=== PATIENT | female | born 1955 | race Two or more races ===

== ENCOUNTER 2017-05-20 16:53 | Inpatient (IN) | payer MEDICARE, OTHER ==
[~2017-05-20] VITALS: Ht 162.6 cm; Wt 85.9 kg
--- NOTE | 2017-05-20 17:47 | PHYS DOC ---
Adult General Chief Complaint Chief Complaint: PSYCH EVALUATION HPI HPI Patient is a 61 year old F who presents for medical evaluation prior to psychiatric admission. Britta's history is limited due to her Alzheimer's diagnosis. She does not describe any pain, shortness of breath, urinary symptoms or bowel abnormalities. Review of Systems Review of Systems Constitutional: Denies fever or chills [] Eyes: Denies change in visual acuity, redness, or eye pain [] HENT: Denies nasal congestion or sore throat [] Respiratory: Denies cough or shortness of breath [] Cardiovascular: No additional information not addressed in HPI [] GI: Denies abdominal pain, nausea, vomiting, bloody stools or diarrhea [] : Denies dysuria or hematuria [] Musculoskeletal: Denies back pain or joint pain [] Integument: Denies rash or skin lesions [] Neurologic: Denies headache, focal weakness or sensory changes [] Endocrine: Denies polyuria or polydipsia [] All other systems were reviewed and found to be within normal limits, except as documented in this note. Family History Family History Noncontributory Current Medications Current Medications Medications reviewed Allergies Allergies No known allergies Physical Exam Physical Exam Constitutional: Well developed, well nourished, no acute distress, non-toxic appearance. [] HENT: atraumatic, bilateral external ears normal, oropharynx moist, no oral exudates, nose normal. [] Eyes: PERRLA, EOMI, conjunctiva normal, no discharge. [] Neck: Normal range of motion, no tenderness, supple, no stridor. [] Cardiovascular:Heart rate regular rhythm, no murmur [] Lungs & Thorax: Bilateral breath sounds clear to auscultation [] Abdomen: Bowel sounds normal, soft, no tenderness, no masses, no pulsatile masses. [] Skin: Warm, dry, no erythema, no rash. [] Back: No tenderness, no CVA tenderness. [] Extremities: No tenderness, no cyanosis, no clubbing, ROM intact, no edema. [] Neurologic: Alert normal motor function, normal sensory function, no focal deficits noted. [] Psychologic: Limited due to psychiatric diagnoses, Alzheimer's Current Patient Data Vital Signs Normal vital signs. Please review nursing recommendation for specifics EKG EKG Normal sinus rhythm, no ST changes Radiology/Procedures Radiology/Procedures [] Course & Med Decision Making Course & Med Decision Making Pertinent Labs and Imaging studies reviewed. (See chart for details) [] Dragon Disclaimer Dragon Disclaimer This electronic medical record was generated, in whole or in part, using a voice recognition dictation system. Departure Departure: Impression: Primary Impression: Encounter for medical screening examination Disposition: 65 XFER TO PSYCH HOSP/UNIT Condition: STABLE Referrals: JEFFREY FRANCO (PCP) MANOHAR CHAKRABORTY MD May 20, 2017 17:47
[2017-05-20 18:22] LABS: BASO # 0.1 x10^3/uL (0.0-0.2); BASO % 1 % (0-3); EOS # 0.2 x10^3/uL (0.0-0.7); EOS % 3 % (0-3); HEMATOCRIT 40.9 % (36.0-47.0); LYMPH # 1.2 x10^3/uL (1.0-4.8); LYMPH % 13 % (24-48); MEAN CORPUSCULAR HEMOGLOBIN 30 pg (25-35); MEAN CORPUSCULAR HGB CONC 34 g/dL (31-37); MEAN CORPUSCULAR VOLUME 87 fL (79-100); MONO # 0.6 x10^3/uL (0.0-1.1); MONO % 7 % (0-9); NEUT # 7.1 x10^3uL (1.8-7.7); NEUT % 77 % (31-73); PLATELET COUNT 224 x10^3/uL (140-400); RED BLOOD COUNT 4.68 x10^6/uL (3.50-5.40); WHITE BLOOD COUNT 9.2 x10^3/uL (4.0-11.0)
--- NOTE | 2017-05-20 18:26 | EKG ---
[address] [address] Test Date: 2017-05-20 Test Time: 18:02:58 Pat Name: JUAN LUIS WILSON Department: Room: Gender: F Inspector Aide: BEBETO : 1955 Requested By: MANOHAR CHAKRABORTY Order Number: [id number] Reading MD: Troy Phillips MD Measurements Intervals [place] Rate: 64 P: 49 RI: 162 QRS: -39 QRSD: 114 T: 64 QT: 460 QTc: 479 Interpretive Statements SINUS RHYTHM ATRIAL PREMATURE COMPLEX(ES) Electronically Signed On 05-21-2017 8:31:55 PORTFOLIO ARCHITECT by Troy Phillips MD
[2017-05-20 18:32] LABS: AMPHETAMINE/METHAMPHETAMINE NEG (NEG); BARBITURATES NEG (NEG); BENZODIAZEPINES NEG (NEG); CANNABINOIDS NEG (NEG); COCAINE NEG (NEG); METHADONE NEG (NEG); OPIATES NEG (NEG); PHENCYCLIDINE NEG (NEG)
[2017-05-20 18:35] LABS: ALBUMIN 4.2 g/dL (3.4-5.0); ALBUMIN/GLOBULIN RATIO 1.1 (1.0-1.7); CREATININE 0.9 mg/dL (0.6-1.0); GFR 63.4; MAGNESIUM 2.3 mg/dL (1.8-2.4); POTASSIUM 3.9 mmol/L (3.5-5.1); TOTAL BILIRUBIN 0.3 mg/dL (0.2-1.0)
[2017-05-20 18:54] LABS: BACTERIA,URINE 0 /HPF (0-FEW); BILIRUBIN,URINE NEG (NEG); CLARITY,URINE CLEAR; COLOR,URINE STRAW; GLUCOSE,URINE NEG (NEG); NITRITE,URINE NEG (NEG); RBC,URINE OCC /HPF (0-2); SQUAMOUS EPITHELIAL CELL,UR FEW /LPF; UROBILINOGEN,URINE 0.2 mg/dL (0.2 mg/dL)
[2017-05-20] MEDS ORDERED: MAG HYDROX/AL HYDROX/SIMETH 30 ML ORAL.SUSP PO PRN (20:15)
[2017-05-20] MEDS ORDERED: ACETAMINOPHEN 325 MG TABLET PO PRN (20:15)
[2017-05-20] MEDS ORDERED: METHYL SALICYLATE/MENTHOL TOPICAL OINTMENT 29GM TUBE. TP PRN (20:15)
[2017-05-20 20:39] VITALS: BP 136/71
[2017-05-20] MEDS ORDERED: MEMA10TA PO (21:24)
[2017-05-20] MEDS ORDERED: ACET325T9 PO (21:24)
[2017-05-20] MEDS ORDERED: QUET25TA5 PO (21:24)
[2017-05-20] MEDS ORDERED: OMEP20CA9 PO (21:24)
[2017-05-20] MEDS ORDERED: SIMV20TA3 PO (21:24)
[2017-05-20] MEDS ORDERED: LISI10TA2 PO (21:24)
[2017-05-20] MEDS ORDERED: DONE10TA7 PO (21:24)
[2017-05-20] MEDS ORDERED: DICL75TA PO (21:24)
[2017-05-20] MEDS ORDERED: [UNRECOGNIZED DRUG - CODE] MM (21:24)
[2017-05-20] MEDS ORDERED: CLOB15CR TP (21:24)
[2017-05-20] MEDS ORDERED: SERT100T PO (21:24)
[2017-05-20] MEDS ORDERED: CLON0.5T3 PO (21:24)
[2017-05-20] MEDS ORDERED: QUET50TA5 PO (21:24)
[2017-05-20] MEDS: DONEPEZIL HCL 10 MG TABLET PO SCH (22:47)
[2017-05-20] MEDS: MEMANTINE 10 MG TABLET. PO SCH (22:47)
[2017-05-20] MEDS: QUEtiapine 50 MG TABLET. PO SCH (22:47)
[2017-05-21] MEDS ORDERED: ACETAMINOPHEN 325 MG TABLET PO PRN (05:30)
[2017-05-21] MEDS ORDERED: BENZOCAINE/MENTHOL LOZENGE 16'S BOX. PO PRN (05:45)
[2017-05-21 05:52] VITALS: BP 128/84
[2017-05-21] MEDS: MEMANTINE 10 MG TABLET. PO SCH ×2 (08:39→19:59)
[2017-05-21] MEDS: PANTOPRAZOLE 40 MG TABLET. PO SCH (08:40)
[2017-05-21] MEDS: SERTRALINE 100 MG TABLET. PO SCH (08:40)
[2017-05-21] MEDS: DICLOFENAC SODIUM 75 MG TABLET.DR PO SCH ×2 (08:40→19:59)
[2017-05-21] MEDS: LISINOPRIL 10 MG TABLET PO SCH (08:40)
[2017-05-21] MEDS ORDERED: CLOBETASOL EMOLLIENT 0.05% TOPICAL CREAM 15GM TUBE. TP PRN (09:00)
[2017-05-21] MEDS ORDERED: QUEtiapine 25 MG TABLET. PO SCH (09:00)
[2017-05-21] MEDS: clonazePAM 0.5 MG TABLET PO PRN (11:51)
[2017-05-21 14:06] LABS: THYROID STIM HORMONE (TSH) 0.993 uIU/mL (0.358-3.740)
[2017-05-21 16:10] VITALS: BP 100/65
[2017-05-21] MEDS: CHOLECALCIFEROL (VITAMIN D3) 50,000 UNIT CAPSULE PO SCH (17:29)
[2017-05-21] MEDS: QUEtiapine 50 MG TABLET. PO SCH (19:59)
[2017-05-21] MEDS: DONEPEZIL HCL 10 MG TABLET PO SCH (19:59)
[2017-05-21] MEDS: SIMVASTATIN 20 MG TABLET PO SCH (20:00)
[2017-05-21 20:09] LABS: T3 TOTAL 96 ng/dL (71-180); THYROXINE 7.2 ug/dL (4.5-12.0)
--- NOTE | 2017-05-21 20:16 | PDOC ---
Exam Note: Emir Note: Please also refer to the separate dictated note~for this date of service dictated separately.~Patient seen individually. Discussed the patient with Nursing staff reviewed the chart.~Reviewed interim history and current functioning. Reviewed vital signs,~Labs/ Radiology~and current medications noted below. Continue current treatment with the changes noted in the dictated addendum note Assessment: Vital Signs: Vital Signs Date Time Temp Pulse Resp B/P (MAP) Pulse Ox O2 Delivery O2 Flow Rate FiO2 05/21/17 16:10 97.4 81 20 100/65 (77) 96 05/20/17 16:53 Room Air I&O Intake and Output 05/21/17 07:00 Intake Total 120 ml Balance 120 ml Intake Oral 120 ml # Voids 1 Current Medications: Meds: Current Medications Acetaminophen (Tylenol) 650 mg PRN Q6HRS PRN PO PAIN / TEMP; Start 05/20/17 at 20:15 Multi-Ingredient Ointment (Analgesic [place]) 1 chelle PRN QID PRN TP MUSCLE PAIN; Start 05/20/17 at 20:15 Al Hydroxide/Mg Hydroxide (Mylanta Plus Xs) 15 ml PRN AFTMEALHC PRN PO DYSPEPSIA; Start 05/20/17 at 20:15 Magnesium Hydroxide (Milk Of Magnesia) 2,400 mg PRN QHS PRN PO CONSTIPATION; Start 05/20/17 at 20:15 Clonazepam (KlonoPIN) 0.5 mg PRN BID PRN PO ANXIETY / AGITATION Last administered on 05/21/17 11:51; Start 05/20/17 at 21:45 Donepezil HCl (Aricept) 10 mg QHS PO Last administered on 05/21/17 19:59; Start 05/20/17 at 22:00 Memantine (Namenda) 10 mg BID PO Last administered on 05/21/17 19:59; Start 05/20/17 at 22:00 Quetiapine Fumarate (SEROquel) 25 mg DAILY PO Last administered on 05/21/17 08:40; Start 05/21/17 at 09:00; Stop 05/21/17 at 18:33; Status DC Quetiapine Fumarate (SEROquel) 50 mg QHS PO Last administered on 05/21/17 19: 59; Start 05/20/17 at 22:00 Sertraline HCl (Zoloft) 100 mg DAILY PO Last administered on 05/21/17 08:40; Start 05/21/17 at 09:00 Pneumococcal Polyvalent Vaccine (Do NOT chart on this entry -- for MONITORING) 1 each 1X ONCE MC ; Start 05/22/17 at 09:00; Stop 05/22/17 at 09:01 Influenza Virus Vaccine Quadrival (Fluarix Quad 3170-9502 Syringe) 0.5 ml ONCE ONCE VAX IM ; Start 05/22/17 at 09:00; Stop 05/22/17 at 09:01 Acetaminophen (Tylenol) 650 mg PRN Q6HRS PRN PO PAIN / TEMP; Start 05/21/17 at 05:30; Stop 05/21/17 at 05:34; Status DC Diclofenac Sodium (Voltaren) 75 mg BID PO Last administered on 05/21/17 19:59 ; Start 05/21/17 at 09:00 Lisinopril (Prinivil) 10 mg DAILY PO Last administered on 05/21/17 08:40; Start 05/21/17 at 09:00 Simvastatin (Zocor) 20 mg HS PO Last administered on 05/21/17 20:00; Start 05/21/17 at 21:00 Clobetasol Propionate 1 chelle PRN BID PRN TP ITCHING; Start 05/21/17 at 09:00 Pantoprazole Sodium (Protonix) 40 mg DAILYAC PO Last administered on 08:40; Start 05/21/17 at 07:30 Throat Lozenges (Cepacol Sore Throat Lozenge) 1 sara PRN Q2HR PRN PO COUGH; Start 05/21/17 at 05:45 Cyanocobalamin (Vitamin B-12) 1,000 mcg DAILY IM ; Start 05/22/17 at 09:00; Stop 05/25/17 at 08:59 Cyanocobalamin (Vitamin B-12) 1,000 mcg [id number] IM ; Start 06/18/17 at 09:00 Vitamin D (Vitamin D3) 50,000 unit WEEKLY PO Last administered on 05/21/17 17 :29; Start 05/21/17 at 16:00 Quetiapine Fumarate (SEROquel) 25 mg BID92 PO ; Start 05/22/17 at 09:00 Active Scripts Active Reported Throat Drops (Pectin) 6 Mg Lozenge 6 Mg MM PRN Q4HRS PRN Simvastatin 20 Mg Tablet 20 Mg PO HS Zoloft (Sertraline Hcl) 100 Mg Tablet 100 Mg PO DAILY Seroquel (Quetiapine Fumarate) 50 Mg Tablet 50 Mg PO QHS Seroquel (Quetiapine Fumarate) 25 Mg Tablet 25 Mg PO DAILY Omeprazole 20 Mg Capsule.dr 20 Mg PO DAILY Namenda (Memantine Hcl) 10 Mg Tablet 10 Mg PO BID Lisinopril 10 Mg Tablet 10 Mg PO DAILY Donepezil Hcl 10 Mg Tablet 10 Mg PO QHS Diclofenac Sodium 75 Mg Tablet.dr 75 Mg PO BID Clonazepam 0.5 Mg Tablet 0.5 Mg PO PRN BID PRN Clobetasol Propionate 15 Gm Cream..g. 1 [place] TP PRN BID PRN Tylenol (Acetaminophen) 325 Mg Tablet 650 Mg PO PRN Q6HRS PRN I have reviewed the current psychotropics carefully including drug interactions. Risk benefit ratio favors no change other than as noted in my dictated progress note. Diagnosis: Problems: (1) Encounter for medical screening examination PAM GLEZ MD May 21, 2017 20:16
[2017-05-22 03:06] LABS: HEMOGLOBIN A1C 5.7 % (4.8-5.6)
[2017-05-22 05:59] VITALS: BP 124/77
[2017-05-22] MEDS: PANTOPRAZOLE 40 MG TABLET. PO SCH (07:50)
[2017-05-22] MEDS: SERTRALINE 100 MG TABLET. PO SCH (07:50)
[2017-05-22] MEDS: LISINOPRIL 10 MG TABLET PO SCH (07:51)
[2017-05-22] MEDS: MEMANTINE 10 MG TABLET. PO SCH ×2 (07:51→20:26)
[2017-05-22] MEDS: DICLOFENAC SODIUM 75 MG TABLET.DR PO SCH ×2 (07:56→20:27)
[2017-05-22] MEDS: QUEtiapine 25 MG TABLET. PO SCH ×2 (07:58→14:37)
[2017-05-22] MEDS: CYANOCOBALAMIN (VITAMIN B-12) 1,000 MCG/ML VIAL IM SCH (07:59)
[2017-05-22] MEDS ORDERED: PNEUMOCOCCAL VAX SCREEN. MC ONE (09:00)
[2017-05-22] MEDS ORDERED: FLU VACC QS2017-18 (36MOS+)/PF 0.5 ML SYRINGE. VAX IM ONE (09:00)
--- NOTE | 2017-05-22 14:13 | HP ---
ADMIT DATE: 05/21/2017 This is a late dictation. REASON FOR ADMISSION TO SENIOR BEHAVIORAL UNIT: This is a 61-year-old female who resides at [facility] in [place], [place]. Evidently she has been paranoid and delusional, feeling like people are stealing from her. She has been trying to get outside and she thinks people are giving her family members alcohol. The patient required one-on-one attention at [facility] and clonazepam was attempted. The patient was quite agitated and confused and paranoid, but after having her sit down and speaking to her in a calm manner, she was able to calm down. PAST MEDICAL HISTORY: Early onset Alzheimer's, cervicalgia, hypertension, asthma, dementia, hyperlipidemia, major depressive disorder, communication defect. ALLERGIES: None. MEDICATIONS: Reviewed and are available on the MAR. SOCIAL HISTORY: The patient states she did work, but she cannot remember what she did. She stated she does not smoke and does not drink. She stated she is a member of the [employer]. [place]. She states she does not know how many children she has, although she thinks it is between 8 and 10. After a time, she was able to identify some of the names of her children. REVIEW OF SYSTEMS: She really was unable to converse in that type of a manner to tell me what was bothering her, if anything. OBJECTIVE: VITAL SIGNS: Blood pressure 100/65, pulse 81, temperature 97.4, pulse 81, pulse ox 96% on room air. Height is 64 inches, weight 190 pounds. GENERAL: A 61-year-old in no acute distress. HEENT: Her TMs were intact bilaterally. Her pupils were equal, round, and react to light. Extraocular muscles were intact. She wears glasses and can read printed words. Her nose was patent. Her throat was clear. NECK: Supple, without adenopathy. Thyroid did not appear enlarged. LUNGS: Clear to auscultation. CARDIOVASCULAR: Regular rhythm and rate. ABDOMEN: Soft, nontender. EXTREMITIES: Without edema. NEUROLOGIC: Her cognition is confused. Her memory is impaired. She does not recall if anything was happened at [facility] nor does she remember that she lives there. She does remember living for a long period of time in [place], [place]. She was able to identify some of the names of her children by their names. She can follow directions and was able to do all of the cranial nerves. LABORATORY DATA: CBC is unremarkable. Chemistry: Her hemoglobin A1c was 5.7. B12 was 287 and vitamin D 14.9. RPR titer negative. Urinalysis, 5-10 white cells, but negative nitrites and trace leukocyte esterase. ASSESSMENT: 1. Severe neurocognitive impairment with early onset. 2. Some degree of paranoia. 3. Vitamin D deficiency. 4. Vitamin B12 deficiency. 5. Hypertension. PLAN: Replace her B12 and her vitamin D and address other medical problems as they come up, also health maintenance. The patient received a flu shot. SOCORRO KUMARI DO DR: JACK/anshul JOB#: [id number] / [id number]
[2017-05-22] MEDS: clonazePAM 0.5 MG TABLET PO PRN (14:37)
[2017-05-22 17:04] VITALS: BP 100/63
[2017-05-22] MEDS: SIMVASTATIN 20 MG TABLET PO SCH (20:26)
[2017-05-22] MEDS: QUEtiapine 50 MG TABLET. PO SCH (20:26)
[2017-05-22] MEDS: DONEPEZIL HCL 10 MG TABLET PO SCH (20:26)
--- NOTE | 2017-05-22 20:46 | PDOC ---
Exam Note: Emir Note: Please also refer to the separate dictated note~for this date of service dictated separately.~Patient seen individually. Discussed the patient with Nursing staff reviewed the chart.~Reviewed interim history and current functioning. Reviewed vital signs,~Labs/ Radiology~and current medications noted below. Continue current treatment with the changes noted in the dictated addendum note Assessment: Vital Signs: Vital Signs Date Time Temp Pulse Resp B/P (MAP) Pulse Ox O2 Delivery O2 Flow Rate FiO2 05/22/17 17:04 97.8 61 20 100/63 (75) 99 Room Air I&O Intake and Output 05/22/17 07:00 Intake Total 1200 ml Balance 1200 ml Intake Oral 1200 ml Current Medications: Meds: Current Medications Acetaminophen (Tylenol) 650 mg PRN Q6HRS PRN PO PAIN / TEMP; Start 05/20/17 at 20:15 Multi-Ingredient Ointment (Analgesic [place]) 1 chelle PRN QID PRN TP MUSCLE PAIN; Start 05/20/17 at 20:15 Al Hydroxide/Mg Hydroxide (Mylanta Plus Xs) 15 ml PRN AFTMEALHC PRN PO DYSPEPSIA; Start 05/20/17 at 20:15 Magnesium Hydroxide (Milk Of Magnesia) 2,400 mg PRN QHS PRN PO CONSTIPATION; Start 05/20/17 at 20:15 Clonazepam (KlonoPIN) 0.5 mg PRN BID PRN PO ANXIETY / AGITATION Last administered on 05/22/17 14:37; Start 05/20/17 at 21:45 Donepezil HCl (Aricept) 10 mg QHS PO Last administered on 05/22/17 20:26; Start 05/20/17 at 22:00 Memantine (Namenda) 10 mg BID PO Last administered on 05/22/17 20:26; Start 05/20/17 at 22:00 Quetiapine Fumarate (SEROquel) 25 mg DAILY PO Last administered on 05/21/17 08:40; Start 05/21/17 at 09:00; Stop 05/21/17 at 18:33; Status DC Quetiapine Fumarate (SEROquel) 50 mg QHS PO Last administered on 05/21/17 19: 59; Start 05/20/17 at 22:00; Stop 05/22/17 at 11:24; Status DC Sertraline HCl (Zoloft) 100 mg DAILY PO Last administered on 05/22/17 07:50; Start 05/21/17 at 09:00 Pneumococcal Polyvalent Vaccine (Do NOT chart on this entry -- for MONITORING) 1 each 1X ONCE MC ; Start 05/22/17 at 09:00; Stop 05/22/17 at 09:01; Status DC Influenza Virus Vaccine Quadrival (Fluarix Quad [id number] Syringe) 0.5 ml ONCE ONCE VAX IM Last administered on 05/22/17 10:56; Start 05/22/17 at 09:00; Stop 05/22/17 at 09:01; Status DC Acetaminophen (Tylenol) 650 mg PRN Q6HRS PRN PO PAIN / TEMP; Start 05/21/17 at 05:30; Stop 05/21/17 at 05:34; Status DC Diclofenac Sodium (Voltaren) 75 mg BID PO Last administered on 05/22/17 20:27 ; Start 05/21/17 at 09:00 Lisinopril (Prinivil) 10 mg DAILY PO Last administered on 05/22/17 07:51; Start 05/21/17 at 09:00 Simvastatin (Zocor) 20 mg HS PO Last administered on 05/22/17 20:26; Start 05/21/17 at 21:00 Clobetasol Propionate 1 chelle PRN BID PRN TP ITCHING; Start 05/21/17 at 09:00 Pantoprazole Sodium (Protonix) 40 mg DAILYAC PO Last administered on 07:50; Start 05/21/17 at 07:30 Throat Lozenges (Cepacol Sore Throat Lozenge) 1 sara PRN Q2HR PRN PO COUGH; Start 05/21/17 at 05:45 Cyanocobalamin (Vitamin B-12) 1,000 mcg DAILY IM Last administered on 07:59; Start 05/22/17 at 09:00; Stop 05/25/17 at 08:59 Cyanocobalamin (Vitamin B-12) 1,000 mcg [id number] IM ; Start 06/18/17 at 09:00 Vitamin D (Vitamin D3) 50,000 unit WEEKLY PO Last administered on 05/21/17 17 :29; Start 05/21/17 at 16:00 Quetiapine Fumarate (SEROquel) 25 mg BID92 PO Last administered on 05/22/17 14:37; Start 05/22/17 at 09:00 Quetiapine Fumarate (SEROquel) 75 mg QHS PO Last administered on 05/22/17 20: 26; Start 05/22/17 at 21:00 Olanzapine (ZyPREXA ZYDIS) 2.5 mg PRN Q2HR PRN PO PSYCHOSIS/AGITATION; Start 05/22/17 at 19:00 Active Scripts Active Reported Throat Drops (Pectin) 6 Mg Lozenge 6 Mg MM PRN Q4HRS PRN Simvastatin 20 Mg Tablet 20 Mg PO HS Zoloft (Sertraline Hcl) 100 Mg Tablet 100 Mg PO DAILY Seroquel (Quetiapine Fumarate) 50 Mg Tablet 50 Mg PO QHS Seroquel (Quetiapine Fumarate) 25 Mg Tablet 25 Mg PO DAILY Omeprazole 20 Mg Capsule.dr 20 Mg PO DAILY Namenda (Memantine Hcl) 10 Mg Tablet 10 Mg PO BID Lisinopril 10 Mg Tablet 10 Mg PO DAILY Donepezil Hcl 10 Mg Tablet 10 Mg PO QHS Diclofenac Sodium 75 Mg Tablet.dr 75 Mg PO BID Clonazepam 0.5 Mg Tablet 0.5 Mg PO PRN BID PRN Clobetasol Propionate 15 Gm Cream..g. 1 Chelle TP PRN BID PRN Tylenol (Acetaminophen) 325 Mg Tablet 650 Mg PO PRN Q6HRS PRN I have reviewed the current psychotropics carefully including drug interactions. Risk benefit ratio favors no change other than as noted in my dictated progress note. Diagnosis: Problems: (1) Encounter for medical screening examination PAM GLEZ MD May 22, 2017 20:46
[2017-05-23 06:15] VITALS: BP 127/73
[2017-05-23] MEDS: PANTOPRAZOLE 40 MG TABLET. PO SCH (07:23)
[2017-05-23] MEDS: LISINOPRIL 10 MG TABLET PO SCH (07:24)
[2017-05-23] MEDS: MEMANTINE 10 MG TABLET. PO SCH ×2 (07:24→20:48)
[2017-05-23] MEDS: QUEtiapine 25 MG TABLET. PO SCH ×2 (07:24→15:25)
[2017-05-23] MEDS: SERTRALINE 100 MG TABLET. PO SCH (07:24)
[2017-05-23] MEDS: DICLOFENAC SODIUM 75 MG TABLET.DR PO SCH ×2 (07:26→21:56)
[2017-05-23] MEDS: CYANOCOBALAMIN (VITAMIN B-12) 1,000 MCG/ML VIAL IM SCH (07:27)
[2017-05-23 16:30] VITALS: BP 143/87
--- NOTE | 2017-05-23 16:52 | HP ---
ADMIT DATE: 05/21/2017 SUMMARY OF PROGRESS: I met with the patient the evening of 05/21/2017 for this evaluation. Discussed with nursing staff several times earlier about circumstances prompting referral for this inpatient psychiatric hospitalization from [facility] and also evening of 05/21/2017. IDENTIFYING DATA: The patient is a 61-year-old female from [facility], referred by Dr. Gonzalez, her primary care physician, on account of worsening confusion, paranoia, believing people are stealing from her, people are giving her family members alcohol. She has been exit seeking, labile in her mood, unmanageable at the facility resulting in this referral. CHIEF COMPLAINT: "I am being here one month." The patient was admitted the previous evening. HISTORY OF PRESENT ILLNESS: The patient has a history of dementia, Alzheimer vascular type. She has been residing at the above detention for some time, but over the recent past, she has had increasing agitation, paranoia, sleep and appetite changes, worsening confusion. As noted, she believes people are stealing from her. She is giving her family members, alcohol. She has been exit seeking, agitated, disruptive, unmanageable. Behaviors were deemed dangerous. Primary care physician felt she is unsafe at the detention, resulting in this referral. No clear history of bipolar disorder, suicidal or homicidal ideation, but she has been psychotic, paranoid. PAST PSYCHIATRIC HISTORY: As above. MEDICAL HISTORY: Hypertension, asthma, hyperlipidemia, cognitive communication deficits. Accu-Cheks - None. DRUG ALLERGIES: Negative. CODE STATUS: Full code. Takes her medications, whole diet is regular, ambulates ad byron. UA on 05/20/17 was negative. CURRENT PSYCHOTROPICS: Namenda 10 mg b.i.d.; Seroquel 25 mg b.i.d. and 75 mg at bedtime though at admission, it was 50 mg at bedtime; Zoloft 100 mg a day; Aricept 10 mg a day; Klonopin 0.5 mg b.i.d. p.r.n. FAMILY HISTORY: Noncontributory. SOCIAL HISTORY: No alcohol, drug abuse, physical, sexual or elder abuse history is noted. She is not known to be a perpetrator. [place], [place]. REVIEW OF SYSTEMS: No CV, , pulmonary, eye, ENT system symptoms on review. Reliability poor. MENTAL STATUS EXAMINATION: Oriented to herself. She is very pleasant, cooperative, but extremely confused. Insight, judgment, recent and remote memory, attention, concentration, fund of knowledge poor, consistent with her diagnosis. She is quite paranoid, suspicious. Denies active hallucinations. Speech was word salad at times. On 05/21/2017 in the afternoon, she was quite agitated. Nursing staff had called me. She received Klonopin p.r.n. and since then we had added another dosage of Seroquel during the day. Her admission dosage of Seroquel was 25 mg in the morning and 50 mg at night and since then has been increased to 25 mg b.i.d., 75 mg p.o. at bedtime. REACTION TO HOSPITALIZATION: The patient oblivious of this. ASSETS: Supportive family, stable living at the detention. IMPRESSION: Major neurocognitive disorder, Alzheimer, vascular with depression, delusion, behavioral disturbance; anxiety disorder, unspecified; impulse control disorder, unspecified. PLAN: Admit to the Geropsychiatry unit at [facility]. I will see the patient daily individually from a psychiatric standpoint. Medical followup per Dr. Kirby/Dr. Malloy. Seroquel has been increased as noted above. Reviewed drug interactions. Risk-benefit ratio favors no further change. Observe the patient's baseline. Consider Depakote if mood lability is problematic. PAM GLEZ MD DR: NHUNG/anshul JOB#: [id number] / [id number]
--- NOTE | 2017-05-23 20:13 | PDOC ---
Exam Note: Emir Note: Please also refer to the separate dictated note~for this date of service dictated separately.~Patient seen individually. Discussed the patient with Nursing staff reviewed the chart.~Reviewed interim history and current functioning. Reviewed vital signs,~Labs/ Radiology~and current medications noted below. Continue current treatment with the changes noted in the dictated addendum note Assessment: Vital Signs: Vital Signs Date Time Temp Pulse Resp B/P (MAP) Pulse Ox O2 Delivery O2 Flow Rate FiO2 05/23/17 16:30 98.1 75 16 143/87 (105) 96 Room Air I&O Intake and Output 05/23/17 07:00 Intake Total 960 ml Balance 960 ml Intake Oral 960 ml Current Medications: Meds: Current Medications Acetaminophen (Tylenol) 650 mg PRN Q6HRS PRN PO PAIN / TEMP; Start 05/20/17 at 20:15 Multi-Ingredient Ointment (Analgesic [place]) 1 chelle PRN QID PRN TP MUSCLE PAIN; Start 05/20/17 at 20:15 Al Hydroxide/Mg Hydroxide (Mylanta Plus Xs) 15 ml PRN AFTMEALHC PRN PO DYSPEPSIA; Start 05/20/17 at 20:15 Magnesium Hydroxide (Milk Of Magnesia) 2,400 mg PRN QHS PRN PO CONSTIPATION; Start 05/20/17 at 20:15 Clonazepam (KlonoPIN) 0.5 mg PRN BID PRN PO ANXIETY / AGITATION Last administered on 05/22/17 14:37; Start 05/20/17 at 21:45 Donepezil HCl (Aricept) 10 mg QHS PO Last administered on 05/22/17 20:26; Start 05/20/17 at 22:00 Memantine (Namenda) 10 mg BID PO Last administered on 05/23/17 07:24; Start 05/20/17 at 22:00 Quetiapine Fumarate (SEROquel) 25 mg DAILY PO Last administered on 05/21/17 08:40; Start 05/21/17 at 09:00; Stop 05/21/17 at 18:33; Status DC Quetiapine Fumarate (SEROquel) 50 mg QHS PO Last administered on 05/21/17 19: 59; Start 05/20/17 at 22:00; Stop 05/22/17 at 11:24; Status DC Sertraline HCl (Zoloft) 100 mg DAILY PO Last administered on 05/23/17 07:24; Start 05/21/17 at 09:00; Stop 05/23/17 at 19:32; Status DC Pneumococcal Polyvalent Vaccine (Do NOT chart on this entry -- for MONITORING) 1 each 1X ONCE MC ; Start 05/22/17 at 09:00; Stop 05/22/17 at 09:01; Status DC Influenza Virus Vaccine Quadrival (Fluarix Quad [id number] Syringe) 0.5 ml ONCE ONCE VAX IM Last administered on 05/22/17 10:56; Start 05/22/17 at 09:00; Stop 05/22/17 at 09:01; Status DC Acetaminophen (Tylenol) 650 mg PRN Q6HRS PRN PO PAIN / TEMP; Start 05/21/17 at 05:30; Stop 05/21/17 at 05:34; Status DC Diclofenac Sodium (Voltaren) 75 mg BID PO Last administered on 05/23/17 07:26 ; Start 05/21/17 at 09:00 Lisinopril (Prinivil) 10 mg DAILY PO Last administered on 05/23/17 07:24; Start 05/21/17 at 09:00 Simvastatin (Zocor) 20 mg HS PO Last administered on 05/22/17 20:26; Start 05/21/17 at 21:00 Clobetasol Propionate 1 chelle PRN BID PRN TP ITCHING; Start 05/21/17 at 09:00 Pantoprazole Sodium (Protonix) 40 mg DAILYAC PO Last administered on 07:23; Start 05/21/17 at 07:30 Throat Lozenges (Cepacol Sore Throat Lozenge) 1 sara PRN Q2HR PRN PO COUGH; Start 05/21/17 at 05:45 Cyanocobalamin (Vitamin B-12) 1,000 mcg DAILY IM Last administered on 07:27; Start 05/22/17 at 09:00; Stop 05/25/17 at 08:59 Cyanocobalamin (Vitamin B-12) 1,000 mcg [id number] IM ; Start 06/18/17 at 09:00 Vitamin D (Vitamin D3) 50,000 unit WEEKLY PO Last administered on 05/21/17 17 :29; Start 05/21/17 at 16:00 Quetiapine Fumarate (SEROquel) 25 mg [id number] PO Last administered on 05/23/17 15:25; Start 05/22/17 at 09:00 Quetiapine Fumarate (SEROquel) 75 mg QHS PO Last administered on 05/22/17 20: 26; Start 05/22/17 at 21:00 Olanzapine (ZyPREXA ZYDIS) 2.5 mg PRN Q2HR PRN PO PSYCHOSIS/AGITATION; Start 05/22/17 at 19:00 Sertraline HCl (Zoloft) 125 mg DAILY PO ; Start 05/24/17 at 09:00 Active Scripts Active Reported Throat Drops (Pectin) 6 Mg Lozenge 6 Mg MM PRN Q4HRS PRN Simvastatin 20 Mg Tablet 20 Mg PO HS Zoloft (Sertraline Hcl) 100 Mg Tablet 100 Mg PO DAILY Seroquel (Quetiapine Fumarate) 50 Mg Tablet 50 Mg PO QHS Seroquel (Quetiapine Fumarate) 25 Mg Tablet 25 Mg PO DAILY Omeprazole 20 Mg Capsule.dr 20 Mg PO DAILY Namenda (Memantine Hcl) 10 Mg Tablet 10 Mg PO BID Lisinopril 10 Mg Tablet 10 Mg PO DAILY Donepezil Hcl 10 Mg Tablet 10 Mg PO QHS Diclofenac Sodium 75 Mg Tablet.dr 75 Mg PO BID Clonazepam 0.5 Mg Tablet 0.5 Mg PO PRN BID PRN Clobetasol Propionate 15 Gm Cream..g. 1 [place]le TP PRN BID PRN Tylenol (Acetaminophen) 325 Mg Tablet 650 Mg PO PRN Q6HRS PRN I have reviewed the current psychotropics carefully including drug interactions. Risk benefit ratio favors no change other than as noted in my dictated progress note. Diagnosis: Problems: (1) Encounter for medical screening examination PAM GLEZ MD May 23, 2017 20:13
[2017-05-23] MEDS: QUEtiapine 50 MG TABLET. PO SCH (20:48)
[2017-05-23] MEDS: SIMVASTATIN 20 MG TABLET PO SCH (20:48)
[2017-05-23] MEDS: DONEPEZIL HCL 10 MG TABLET PO SCH (20:48)
--- NOTE | 2017-05-24 03:32 | PN ---
DATE: 05/22/2017 This late entry for 05/22/2017 covers elements not covered in my initial note of 05/22/2017. SUBJECTIVE: The patient was staffed at a treatment team meeting with the entire team morning of 05/22/2017. I met with her in the evening of 05/22/2017. She did well in the morning of 05/22/2017. Previous evening, she was quite agitated, received Klonopin p.r.n., constantly making statements she does not know what to do or where to go, appears quite confused, oblivious of her surroundings. REVIEW OF SYSTEMS: No CV, , pulmonary, eye, ENT system symptoms on review. Reliability poor. MENTAL STATUS EXAM: Oriented to herself. Insight, judgment, recent and remote memory, attention, concentration, fund of knowledge poor, consistent with her diagnosis. IMPRESSION: Major neurocognitive disorder, Alzheimer, vascular with depression, delusion, behavioral disturbance; anxiety disorder, unspecified; impulse control disorder, unspecified. PLAN: Continue the increased Seroquel. Maintain the rest of the psychotropics mentioned in my initial note. Consider Depakote as a mood stabilizer. BuSpar for anxiety if indicated. PAM GLEZ MD DR: NHUNG/anshul JOB#: [id number] / [id number]
[2017-05-24 06:06] VITALS: BP_SYST 160; BP_SYST 164; BP_DIAS 79; BP_DIAS 83
[2017-05-24] MEDS: PANTOPRAZOLE 40 MG TABLET. PO SCH (07:40)
[2017-05-24] MEDS: LISINOPRIL 10 MG TABLET PO SCH (07:40)
[2017-05-24] MEDS: MEMANTINE 10 MG TABLET. PO SCH ×2 (07:40→20:48)
[2017-05-24] MEDS: CYANOCOBALAMIN (VITAMIN B-12) 1,000 MCG/ML VIAL IM SCH (07:41)
[2017-05-24] MEDS: SERTRALINE 100 MG TABLET. PO SCH (07:44)
[2017-05-24] MEDS: QUEtiapine 25 MG TABLET. PO SCH ×2 (07:44→13:59)
[2017-05-24] MEDS: DICLOFENAC SODIUM 75 MG TABLET.DR PO SCH ×2 (07:45→20:51)
[2017-05-24 16:08] VITALS: BP 103/67
[2017-05-24] MEDS: DONEPEZIL HCL 10 MG TABLET PO SCH (20:48)
[2017-05-24] MEDS: SIMVASTATIN 20 MG TABLET PO SCH (20:48)
[2017-05-24] MEDS: QUEtiapine 50 MG TABLET. PO SCH (20:48)
--- NOTE | 2017-05-24 21:25 | PDOC ---
Exam Note: Emir Note: Please also refer to the separate dictated note~for this date of service dictated separately.~Patient seen individually. Discussed the patient with Nursing staff reviewed the chart.~Reviewed interim history and current functioning. Reviewed vital signs,~Labs/ Radiology~and current medications noted below. Continue current treatment with the changes noted in the dictated addendum note Assessment: Vital Signs: Vital Signs Date Time Temp Pulse Resp B/P (MAP) Pulse Ox O2 Delivery O2 Flow Rate FiO2 05/24/17 16:08 98.9 67 18 103/67 (79) 99 05/23/17 16:30 Room Air I&O Intake and Output 05/24/17 07:00 Intake Total 1328 ml Balance 1328 ml Intake Oral 1328 ml # Bowel Movements 1 Current Medications: Meds: Current Medications Acetaminophen (Tylenol) 650 mg PRN Q6HRS PRN PO PAIN / TEMP; Start 05/20/17 at 20:15 Multi-Ingredient Ointment (Analgesic [place]) 1 chelle PRN QID PRN TP MUSCLE PAIN; Start 05/20/17 at 20:15 Al Hydroxide/Mg Hydroxide (Mylanta Plus Xs) 15 ml PRN AFTMEALHC PRN PO DYSPEPSIA; Start 05/20/17 at 20:15 Magnesium Hydroxide (Milk Of Magnesia) 2,400 mg PRN QHS PRN PO CONSTIPATION; Start 05/20/17 at 20:15 Clonazepam (KlonoPIN) 0.5 mg PRN BID PRN PO ANXIETY / AGITATION Last administered on 05/22/17 14:37; Start 05/20/17 at 21:45 Donepezil HCl (Aricept) 10 mg QHS PO Last administered on 05/24/17 20:48; Start 05/20/17 at 22:00 Memantine (Namenda) 10 mg BID PO Last administered on 05/24/17 20:48; Start 05/20/17 at 22:00 Quetiapine Fumarate (SEROquel) 25 mg DAILY PO Last administered on 05/21/17 08:40; Start 05/21/17 at 09:00; Stop 05/21/17 at 18:33; Status DC Quetiapine Fumarate (SEROquel) 50 mg QHS PO Last administered on 05/21/17 19: 59; Start 05/20/17 at 22:00; Stop 05/22/17 at 11:24; Status DC Sertraline HCl (Zoloft) 100 mg DAILY PO Last administered on 05/23/17 07:24; Start 05/21/17 at 09:00; Stop 05/23/17 at 19:32; Status DC Pneumococcal Polyvalent Vaccine (Do NOT chart on this entry -- for MONITORING) 1 each 1X ONCE MC ; Start 05/22/17 at 09:00; Stop 05/22/17 at 09:01; Status DC Influenza Virus Vaccine Quadrival (Fluarix Quad [id number] Syringe) 0.5 ml ONCE ONCE VAX IM Last administered on 05/22/17 10:56; Start 05/22/17 at 09:00; Stop 05/22/17 at 09:01; Status DC Acetaminophen (Tylenol) 650 mg PRN Q6HRS PRN PO PAIN / TEMP; Start 05/21/17 at 05:30; Stop 05/21/17 at 05:34; Status DC Diclofenac Sodium (Voltaren) 75 mg BID PO Last administered on 05/24/17 20:51 ; Start 05/21/17 at 09:00 Lisinopril (Prinivil) 10 mg DAILY PO Last administered on 05/24/17 07:40; Start 05/21/17 at 09:00 Simvastatin (Zocor) 20 mg HS PO Last administered on 05/24/17 20:48; Start 05/21/17 at 21:00 Clobetasol Propionate 1 chelle PRN BID PRN TP ITCHING; Start 05/21/17 at 09:00 Pantoprazole Sodium (Protonix) 40 mg DAILYAC PO Last administered on 07:40; Start 05/21/17 at 07:30 Throat Lozenges (Cepacol Sore Throat Lozenge) 1 sara PRN Q2HR PRN PO COUGH; Start 05/21/17 at 05:45 Cyanocobalamin (Vitamin B-12) 1,000 mcg DAILY IM Last administered on 07:41; Start 05/22/17 at 09:00; Stop 05/25/17 at 08:59 Cyanocobalamin (Vitamin B-12) 1,000 mcg [id number] IM ; Start 06/18/17 at 09:00 Vitamin D (Vitamin D3) 50,000 unit WEEKLY PO Last administered on 05/21/17 17 :29; Start 05/21/17 at 16:00 Quetiapine Fumarate (SEROquel) 25 mg [id number] PO Last administered on 05/24/17 13:59; Start 05/22/17 at 09:00 Quetiapine Fumarate (SEROquel) 75 mg QHS PO Last administered on 05/24/17 20: 48; Start 05/22/17 at 21:00 Olanzapine (ZyPREXA ZYDIS) 2.5 mg PRN Q2HR PRN PO PSYCHOSIS/AGITATION; Start 05/22/17 at 19:00 Sertraline HCl (Zoloft) 125 mg DAILY PO Last administered on 05/24/17 07:44; Start 05/24/17 at 09:00 Active Scripts Active Reported Throat Drops (Pectin) 6 Mg Lozenge 6 Mg MM PRN Q4HRS PRN Simvastatin 20 Mg Tablet 20 Mg PO HS Zoloft (Sertraline Hcl) 100 Mg Tablet 100 Mg PO DAILY Seroquel (Quetiapine Fumarate) 50 Mg Tablet 50 Mg PO QHS Seroquel (Quetiapine Fumarate) 25 Mg Tablet 25 Mg PO DAILY Omeprazole 20 Mg Capsule.dr 20 Mg PO DAILY Namenda (Memantine Hcl) 10 Mg Tablet 10 Mg PO BID Lisinopril 10 Mg Tablet 10 Mg PO DAILY Donepezil Hcl 10 Mg Tablet 10 Mg PO QHS Diclofenac Sodium 75 Mg Tablet.dr 75 Mg PO BID Clonazepam 0.5 Mg Tablet 0.5 Mg PO PRN BID PRN Clobetasol Propionate 15 Gm Cream..g. 1 [place] TP PRN BID PRN Tylenol (Acetaminophen) 325 Mg Tablet 650 Mg PO PRN Q6HRS PRN I have reviewed the current psychotropics carefully including drug interactions. Risk benefit ratio favors no change other than as noted in my dictated progress note. Diagnosis: Problems: (1) Encounter for medical screening examination PAM GLEZ MD May 24, 2017 21:25
[2017-05-25 06:26] VITALS: BP 116/63
[2017-05-25] MEDS: PANTOPRAZOLE 40 MG TABLET. PO SCH (07:57)
[2017-05-25] MEDS: SERTRALINE 100 MG TABLET. PO SCH (07:57)
[2017-05-25] MEDS: MEMANTINE 10 MG TABLET. PO SCH ×2 (07:58→21:11)
[2017-05-25] MEDS: LISINOPRIL 10 MG TABLET PO SCH (07:58)
[2017-05-25] MEDS: QUEtiapine 25 MG TABLET. PO SCH ×2 (07:58→12:59)
[2017-05-25] MEDS: DICLOFENAC SODIUM 75 MG TABLET.DR PO SCH ×2 (08:05→21:12)
[2017-05-25 16:13] VITALS: BP 102/63
--- NOTE | 2017-05-25 20:21 | PN ---
DATE: 05/24/2017 PSYCHIATRIC PROGRESS NOTE This late entry 05/24/2017 covers elements not covered in my initial note 05/24/2017. SUBJECTIVE: I met with the patient in the evening of 05/24/2017. She is anxious, restless, delusional; believes she is leaving in the evening; otherwise compliant, disorganized and intrusive. REVIEW OF SYSTEMS: No CV, , pulmonary, eye, ENT system symptoms on review. Reliability poor. MENTAL STATUS EXAM: Oriented to herself. Insight, judgment, recent and remote memory, attention, concentration, fund of knowledge poor, consistent with her diagnosis mentioned in my initial note. PLAN: No changes from my initial note. MAN Mac GLEZ MD DR: NHUNG/anshul JOB#: [id number] / [id number]
--- NOTE | 2017-05-25 20:21 | PN ---
DATE: 05/23/2017 This late entry 05/23/2017 covers elements not covered in my initial note 05/23/2017. SUBJECTIVE: The patient remains confused. She has been given note by the nursing staff telling her she is in the hospital. She is suspicious of her medications. No PRNs given. REVIEW OF SYSTEMS: No CV, , pulmonary, eye, ENT system symptoms on review. Reliability poor. MENTAL STATUS EXAM: Oriented to herself. Insight, judgment, recent and remote memory, attention, concentration, fund of knowledge poor, consistent with her diagnosis mentioned in my initial note. PLAN: No changes in psychotropics from initial note, but increase Zoloft from 100 mg a day to 125 mg a day, Seroquel, Namenda and Aricept along with p.r.n. Klonopin and Zyprexa. Will continue unchanged for now. Adjust further as clinically indicated. MAN Mac GLEZ MD DR: NHUNG/anshul JOB#: [id number] / [id number]
--- NOTE | 2017-05-25 20:26 | PDOC ---
Exam Note: Emir Note: Please also refer to the separate dictated note~for this date of service dictated separately.~Patient seen individually. Discussed the patient with Nursing staff reviewed the chart.~Reviewed interim history and current functioning. Reviewed vital signs,~Labs/ Radiology~and current medications noted below. Continue current treatment with the changes noted in the dictated addendum note Assessment: Vital Signs: Vital Signs Date Time Temp Pulse Resp B/P (MAP) Pulse Ox O2 Delivery O2 Flow Rate FiO2 05/25/17 16:13 97.9 63 16 102/63 (76) 95 05/23/17 16:30 Room Air I&O Intake and Output 05/25/17 07:00 Intake Total 1440 ml Balance 1440 ml Intake Oral 1440 ml Current Medications: Meds: Current Medications Acetaminophen (Tylenol) 650 mg PRN Q6HRS PRN PO PAIN / TEMP; Start 05/20/17 at 20:15 Multi-Ingredient Ointment (Analgesic [place]) 1 chelle PRN QID PRN TP MUSCLE PAIN; Start 05/20/17 at 20:15 Al Hydroxide/Mg Hydroxide (Mylanta Plus Xs) 15 ml PRN AFTMEALHC PRN PO DYSPEPSIA; Start 05/20/17 at 20:15 Magnesium Hydroxide (Milk Of Magnesia) 2,400 mg PRN QHS PRN PO CONSTIPATION; Start 05/20/17 at 20:15 Clonazepam (KlonoPIN) 0.5 mg PRN BID PRN PO ANXIETY / AGITATION Last administered on 05/22/17 14:37; Start 05/20/17 at 21:45 Donepezil HCl (Aricept) 10 mg QHS PO Last administered on 05/24/17 20:48; Start 05/20/17 at 22:00 Memantine (Namenda) 10 mg BID PO Last administered on 05/25/17 07:58; Start 05/20/17 at 22:00 Quetiapine Fumarate (SEROquel) 25 mg DAILY PO Last administered on 05/21/17 08:40; Start 05/21/17 at 09:00; Stop 05/21/17 at 18:33; Status DC Quetiapine Fumarate (SEROquel) 50 mg QHS PO Last administered on 05/21/17 19: 59; Start 05/20/17 at 22:00; Stop 05/22/17 at 11:24; Status DC Sertraline HCl (Zoloft) 100 mg DAILY PO Last administered on 05/23/17 07:24; Start 05/21/17 at 09:00; Stop 05/23/17 at 19:32; Status DC Pneumococcal Polyvalent Vaccine (Do NOT chart on this entry -- for MONITORING) 1 each 1X ONCE MC ; Start 05/22/17 at 09:00; Stop 05/22/17 at 09:01; Status DC Influenza Virus Vaccine Quadrival (Fluarix Quad [id number] Syringe) 0.5 ml ONCE ONCE VAX IM Last administered on 05/22/17 10:56; Start 05/22/17 at 09:00; Stop 05/22/17 at 09:01; Status DC Acetaminophen (Tylenol) 650 mg PRN Q6HRS PRN PO PAIN / TEMP; Start 05/21/17 at 05:30; Stop 05/21/17 at 05:34; Status DC Diclofenac Sodium (Voltaren) 75 mg BID PO Last administered on 05/25/17 08:05 ; Start 05/21/17 at 09:00 Lisinopril (Prinivil) 10 mg DAILY PO Last administered on 05/25/17 07:58; Start 05/21/17 at 09:00 Simvastatin (Zocor) 20 mg HS PO Last administered on 05/24/17 20:48; Start 05/21/17 at 21:00 Clobetasol Propionate 1 chelle PRN BID PRN TP ITCHING; Start 05/21/17 at 09:00 Pantoprazole Sodium (Protonix) 40 mg DAILYAC PO Last administered on 07:57; Start 05/21/17 at 07:30 Throat Lozenges (Cepacol Sore Throat Lozenge) 1 sara PRN Q2HR PRN PO COUGH; Start 05/21/17 at 05:45 Cyanocobalamin (Vitamin B-12) 1,000 mcg DAILY IM Last administered on 07:41; Start 05/22/17 at 09:00; Stop 05/25/17 at 08:59; Status DC Cyanocobalamin (Vitamin B-12) 1,000 mcg [id number] IM ; Start 12/13/17 at 09:00 Vitamin D (Vitamin D3) 50,000 unit WEEKLY PO Last administered on 05/21/17 17 :29; Start 05/21/17 at 16:00 Quetiapine Fumarate (SEROquel) 25 mg BID92 PO Last administered on 05/25/17 12:59; Start 05/22/17 at 09:00 Quetiapine Fumarate (SEROquel) 75 mg QHS PO Last administered on 05/24/17 20: 48; Start 05/22/17 at 21:00 Olanzapine (ZyPREXA ZYDIS) 2.5 mg PRN Q2HR PRN PO PSYCHOSIS/AGITATION; Start 05/22/17 at 19:00 Sertraline HCl (Zoloft) 125 mg DAILY PO Last administered on 05/25/17 07:57; Start 05/24/17 at 09:00 Active Scripts Active Reported Throat Drops (Pectin) 6 Mg Lozenge 6 Mg MM PRN Q4HRS PRN Simvastatin 20 Mg Tablet 20 Mg PO HS Zoloft (Sertraline Hcl) 100 Mg Tablet 100 Mg PO DAILY Seroquel (Quetiapine Fumarate) 50 Mg Tablet 50 Mg PO QHS Seroquel (Quetiapine Fumarate) 25 Mg Tablet 25 Mg PO DAILY Omeprazole 20 Mg Capsule.dr 20 Mg PO DAILY Namenda (Memantine Hcl) 10 Mg Tablet 10 Mg PO BID Lisinopril 10 Mg Tablet 10 Mg PO DAILY Donepezil Hcl 10 Mg Tablet 10 Mg PO QHS Diclofenac Sodium 75 Mg Tablet.dr 75 Mg PO BID Clonazepam 0.5 Mg Tablet 0.5 Mg PO PRN BID PRN Clobetasol Propionate 15 Gm Cream..g. 1 [place] TP PRN BID PRN Tylenol (Acetaminophen) 325 Mg Tablet 650 Mg PO PRN Q6HRS PRN I have reviewed the current psychotropics carefully including drug interactions. Risk benefit ratio favors no change other than as noted in my dictated progress note. Diagnosis: Problems: (1) Encounter for medical screening examination PAM GLEZ MD May 25, 2017 20:26
[2017-05-25] MEDS: QUEtiapine 50 MG TABLET. PO SCH (21:11)
[2017-05-25] MEDS: DONEPEZIL HCL 10 MG TABLET PO SCH (21:11)
[2017-05-25] MEDS: SIMVASTATIN 20 MG TABLET PO SCH (21:12)
[2017-05-26 06:04] VITALS: BP 133/74
[2017-05-26] MEDS: DICLOFENAC SODIUM 75 MG TABLET.DR PO SCH ×2 (09:00→19:26)
[2017-05-26] MEDS: PANTOPRAZOLE 40 MG TABLET. PO SCH (09:43)
[2017-05-26] MEDS: LISINOPRIL 10 MG TABLET PO SCH (09:44)
[2017-05-26] MEDS: QUEtiapine 25 MG TABLET. PO SCH ×2 (09:44→15:49)
[2017-05-26] MEDS: MEMANTINE 10 MG TABLET. PO SCH ×2 (09:44→19:23)
[2017-05-26] MEDS: SERTRALINE 100 MG TABLET. PO SCH (09:45)
[2017-05-26] MEDS: clonazePAM 0.5 MG TABLET PO PRN (11:00)
[2017-05-26 16:23] VITALS: BP 103/68
[2017-05-26] MEDS: DONEPEZIL HCL 10 MG TABLET PO SCH (19:23)
[2017-05-26] MEDS: SIMVASTATIN 20 MG TABLET PO SCH (19:24)
[2017-05-26] MEDS: QUEtiapine 50 MG TABLET. PO SCH (19:26)
--- NOTE | 2017-05-26 20:06 | PDOC ---
Exam Note: Emir Note: Please also refer to the separate dictated note~for this date of service dictated separately.~Patient seen individually. Discussed the patient with Nursing staff reviewed the chart.~Reviewed interim history and current functioning. Reviewed vital signs,~Labs/ Radiology~and current medications noted below. Continue current treatment with the changes noted in the dictated addendum note Assessment: Vital Signs: Vital Signs Date Time Temp Pulse Resp B/P (MAP) Pulse Ox O2 Delivery O2 Flow Rate FiO2 05/26/17 16:23 97.3 69 18 103/68 (80) 97 05/23/17 16:30 Room Air I&O Intake and Output 05/26/17 07:00 Intake Total 1080 ml Balance 1080 ml Intake Oral 1080 ml Current Medications: Meds: Current Medications Acetaminophen (Tylenol) 650 mg PRN Q6HRS PRN PO PAIN / TEMP; Start 05/20/17 at 20:15 Multi-Ingredient Ointment (Analgesic [place]) 1 chelle PRN QID PRN TP MUSCLE PAIN; Start 05/20/17 at 20:15 Al Hydroxide/Mg Hydroxide (Mylanta Plus Xs) 15 ml PRN AFTMEALHC PRN PO DYSPEPSIA; Start 05/20/17 at 20:15 Magnesium Hydroxide (Milk Of Magnesia) 2,400 mg PRN QHS PRN PO CONSTIPATION; Start 05/20/17 at 20:15 Clonazepam (KlonoPIN) 0.5 mg PRN BID PRN PO ANXIETY / AGITATION Last administered on 05/26/17 11:00; Start 05/20/17 at 21:45 Donepezil HCl (Aricept) 10 mg QHS PO Last administered on 05/26/17 19:23; Start 05/20/17 at 22:00 Memantine (Namenda) 10 mg BID PO Last administered on 05/26/17 19:23; Start 05/20/17 at 22:00 Quetiapine Fumarate (SEROquel) 25 mg DAILY PO Last administered on 05/21/17 08:40; Start 05/21/17 at 09:00; Stop 05/21/17 at 18:33; Status DC Quetiapine Fumarate (SEROquel) 50 mg QHS PO Last administered on 05/21/17 19: 59; Start 05/20/17 at 22:00; Stop 05/22/17 at 11:24; Status DC Sertraline HCl (Zoloft) 100 mg DAILY PO Last administered on 05/23/17 07:24; Start 05/21/17 at 09:00; Stop 05/23/17 at 19:32; Status DC Pneumococcal Polyvalent Vaccine (Do NOT chart on this entry -- for MONITORING) 1 each 1X ONCE MC ; Start 05/22/17 at 09:00; Stop 05/22/17 at 09:01; Status DC Influenza Virus Vaccine Quadrival (Fluarix Quad [id number] Syringe) 0.5 ml ONCE ONCE VAX IM Last administered on 05/22/17 10:56; Start 05/22/17 at 09:00; Stop 05/22/17 at 09:01; Status DC Acetaminophen (Tylenol) 650 mg PRN Q6HRS PRN PO PAIN / TEMP; Start 05/21/17 at 05:30; Stop 05/21/17 at 05:34; Status DC Diclofenac Sodium (Voltaren) 75 mg BID PO Last administered on 05/26/17 19:26 ; Start 05/21/17 at 09:00 Lisinopril (Prinivil) 10 mg DAILY PO Last administered on 05/26/17 09:44; Start 05/21/17 at 09:00 Simvastatin (Zocor) 20 mg HS PO Last administered on 05/26/17 19:24; Start 05/21/17 at 21:00 Clobetasol Propionate 1 chelle PRN BID PRN TP ITCHING; Start 05/21/17 at 09:00 Pantoprazole Sodium (Protonix) 40 mg DAILYAC PO Last administered on 09:43; Start 05/21/17 at 07:30 Throat Lozenges (Cepacol Sore Throat Lozenge) 1 sara PRN Q2HR PRN PO COUGH; Start 05/21/17 at 05:45 Cyanocobalamin (Vitamin B-12) 1,000 mcg DAILY IM Last administered on 07:41; Start 05/22/17 at 09:00; Stop 05/25/17 at 08:59; Status DC Cyanocobalamin (Vitamin B-12) 1,000 mcg [id number] IM ; Start 06/18/17 at 09:00 Vitamin D (Vitamin D3) 50,000 unit WEEKLY PO Last administered on 05/21/17 17 :29; Start 05/21/17 at 16:00 Quetiapine Fumarate (SEROquel) 25 mg [id number] PO Last administered on 05/26/17 09:44; Start 05/22/17 at 09:00; Stop 05/26/17 at 11:07; Status DC Quetiapine Fumarate (SEROquel) 75 mg QHS PO Last administered on 05/26/17 19: 26; Start 05/22/17 at 21:00 Olanzapine (ZyPREXA ZYDIS) 2.5 mg PRN Q2HR PRN PO PSYCHOSIS/AGITATION; Start 05/22/17 at 19:00 Sertraline HCl (Zoloft) 125 mg DAILY PO Last administered on 05/26/17 09:45; Start 05/24/17 at 09:00 Quetiapine Fumarate (SEROquel) 25 mg DAILY@1400 PO Last administered on 15:49; Start 05/26/17 at 14:00 Quetiapine Fumarate (SEROquel) 37.5 mg DAILY PO ; Start 05/27/17 at 09:00 Active Scripts Active Reported Throat Drops (Pectin) 6 Mg Lozenge 6 Mg MM PRN Q4HRS PRN Simvastatin 20 Mg Tablet 20 Mg PO HS Zoloft (Sertraline Hcl) 100 Mg Tablet 100 Mg PO DAILY Seroquel (Quetiapine Fumarate) 50 Mg Tablet 50 Mg PO QHS Seroquel (Quetiapine Fumarate) 25 Mg Tablet 25 Mg PO DAILY Omeprazole 20 Mg Capsule.dr 20 Mg PO DAILY Namenda (Memantine Hcl) 10 Mg Tablet 10 Mg PO BID Lisinopril 10 Mg Tablet 10 Mg PO DAILY Donepezil Hcl 10 Mg Tablet 10 Mg PO QHS Diclofenac Sodium 75 Mg Tablet.dr 75 Mg PO BID Clonazepam 0.5 Mg Tablet 0.5 Mg PO PRN BID PRN Clobetasol Propionate 15 Gm Cream..g. 1 [place] TP PRN BID PRN Tylenol (Acetaminophen) 325 Mg Tablet 650 Mg PO PRN Q6HRS PRN I have reviewed the current psychotropics carefully including drug interactions. Risk benefit ratio favors no change other than as noted in my dictated progress note. Diagnosis: Problems: (1) Encounter for medical screening examination PAM GLEZ MD May 26, 2017 20:06
--- NOTE | 2017-05-27 04:56 | PN ---
DATE: 05/25/2017 This is a late entry 05/25, covers elements not covered in my initial note of 05/25. SUBJECTIVE: I met with the patient evening of 05/25. The patient wanders the hallways, confused, oblivious of her surroundings. REVIEW OF SYSTEMS: No CV, , pulmonary, eye, ENT system symptoms on acute ability poor. MENTAL STATUS EXAM: Oriented to herself. Insight, judgment, recent and remote memory, attention, concentration, fund of knowledge poor, consistent with her diagnosis mentioned in my initial note. PLAN: Continue psychotropics mentioned in my initial note. Paranoia is evident, may increase Seroquel. MAN Mac GLEZ MD DR: NHUNG/anshul JOB#: [id number] / [id number]
--- NOTE | 2017-05-27 04:59 | PN ---
DATE: 05/26/2017 This note covers elements not covered in my initial note 05/26. SUBJECTIVE: I met with the patient in the morning of 05/26. She remains quite confused, wandering the hallways somewhat suspicious, irritable at times. Speech is word salad. REVIEW OF SYSTEMS: No CV, , pulmonary, eye, ENT system symptoms on review. Reliability poor. MENTAL STATUS EXAM: Oriented to herself. Insight, judgment, recent and remote. Attention, concentration, fund of knowledge poor, consistent with her diagnosis mentioned in my initial note. PLAN: Increase Seroquel from 25 mg at 9:00 a.m. to 37.5 mg at 9:00 a.m. Continue 25 mg at 1400 and 75 mg at bedtime. Rest of psychotropics unchanged from initial note. Adjust further as clinically indicated. MAN Mac GLEZ MD DR: NHUNG/anshul JOB#: [id number] / [id number]
[2017-05-27 06:16] VITALS: BP 115/69
[2017-05-27 08:22] LABS: BASO % 1 % (0-3); EOS # 0.2 x10^3/uL (0.0-0.7); EOS % 2 % (0-3); HEMATOCRIT 40.5 % (36.0-47.0); HEMOGLOBIN 13.7 g/dL (12.0-15.5); LYMPH % 13 % (24-48); MEAN CORPUSCULAR HEMOGLOBIN 30 pg (25-35); MEAN CORPUSCULAR HGB CONC 34 g/dL (31-37); MEAN CORPUSCULAR VOLUME 87 fL (79-100); MONO # 0.4 x10^3/uL (0.0-1.1); MONO % 6 % (0-9); NEUT # 5.8 x10^3uL (1.8-7.7); NEUT % 78 % (31-73); PLATELET COUNT 221 x10^3/uL (140-400); RED BLOOD COUNT 4.65 x10^6/uL (3.50-5.40); WHITE BLOOD COUNT 7.5 x10^3/uL (4.0-11.0)
[2017-05-27 08:46] LABS: ALBUMIN 3.8 g/dL (3.4-5.0); CALCIUM 8.9 mg/dL (8.5-10.1); CREATININE 0.9 mg/dL (0.6-1.0); GFR 63.4; TOTAL BILIRUBIN 0.5 mg/dL (0.2-1.0); TOTAL PROTEIN 7.5 g/dL (6.4-8.2)
[2017-05-27] MEDS: PANTOPRAZOLE 40 MG TABLET. PO SCH (08:46)
[2017-05-27] MEDS: MEMANTINE 10 MG TABLET. PO SCH ×2 (08:47→19:43)
[2017-05-27] MEDS: LISINOPRIL 10 MG TABLET PO SCH (08:48)
[2017-05-27] MEDS: SERTRALINE 100 MG TABLET. PO SCH (08:50)
[2017-05-27] MEDS: QUEtiapine 25 MG TABLET. PO SCH ×2 (08:53→14:12)
[2017-05-27] MEDS: DICLOFENAC SODIUM 75 MG TABLET.DR PO SCH ×2 (09:00→19:46)
[2017-05-27] MEDS: clonazePAM 0.5 MG TABLET PO PRN (14:52)
[2017-05-27 16:22] VITALS: BP 135/94
[2017-05-27] MEDS: DONEPEZIL HCL 10 MG TABLET PO SCH (19:43)
[2017-05-27] MEDS: QUEtiapine 50 MG TABLET. PO SCH (19:44)
[2017-05-27] MEDS: SIMVASTATIN 20 MG TABLET PO SCH (19:44)
[2017-05-28 06:11] VITALS: BP 110/75
[2017-05-28] MEDS: PANTOPRAZOLE 40 MG TABLET. PO SCH (07:31)
[2017-05-28] MEDS: LISINOPRIL 10 MG TABLET PO SCH (08:23)
[2017-05-28] MEDS: QUEtiapine 25 MG TABLET. PO SCH ×2 (08:24→13:42)
[2017-05-28] MEDS: SERTRALINE 100 MG TABLET. PO SCH (08:25)
[2017-05-28] MEDS: DICLOFENAC SODIUM 75 MG TABLET.DR PO SCH ×2 (08:26→19:16)
[2017-05-28] MEDS: MEMANTINE 10 MG TABLET. PO SCH ×2 (08:26→19:15)
[2017-05-28] MEDS: CHOLECALCIFEROL (VITAMIN D3) 50,000 UNIT CAPSULE PO SCH (08:28)
[2017-05-28] MEDS: clonazePAM 0.5 MG TABLET PO PRN (16:02)
[2017-05-28 16:13] VITALS: BP 109/64
[2017-05-28] MEDS: QUEtiapine 50 MG TABLET. PO SCH (19:15)
[2017-05-28] MEDS: DONEPEZIL HCL 10 MG TABLET PO SCH (19:15)
[2017-05-28] MEDS: SIMVASTATIN 20 MG TABLET PO SCH (19:16)
--- NOTE | 2017-05-29 02:29 | RAD ---
CT head without contrast: Reason for examination: Early onset dementia. Helical images were obtained through the brain. Reconstruction was performed in sagittal and coronal planes. No contrast was administered. Exposure: One or more of the following individualized dose reduction techniques were utilized for this examination: 1. Automated exposure control 2. Adjustment of the mA and/or kV according to patient size 3. Use of iterative reconstruction technique. Ventricular systems are symmetric and not abnormally dilated. No midline shift is seen. There is no evidence of intracranial hemorrhage, infarct, mass or edema. No abnormalities are seen at the orbits. The paranasal sinuses and mastoid air cells are clear. No acute skull abnormality is seen. IMPRESSION: No acute intracranial abnormalities evident. Electronically signed by: Carmencita Upton MD (05/29/2017 2:25 AM) [facility]
[2017-05-29 06:06] VITALS: BP 126/76
--- NOTE | 2017-05-29 06:20 | PN ---
DATE: 05/28/2017 SUBJECTIVE: The patient was seen today, met with the staff, chart reviewed and covering for Dr. Fields. Staff reports no major problems except periods of confusion. The patient's behavior remains the same. No major problem. The patient is pleasant, getting along with the staff and other resident. The patient also somewhat concrete with her thinking and also significant problems with her memory, but her language is intact. The patient interacted with the staff and other residents fairly well. No evidence of any psychotic symptoms. OBSERVATION: VITAL SIGNS: Temperature 98.6, blood pressure 110/75, pulse 73, respirations 16, O2 sat 96%. Slept about 7 hours last night. The patient's appetite good. LABORATORY DATA: The patient's lab reviewed, which were all within normal range except for blood sugar 135, hemoglobin 5.7. MEDICATIONS: The patient's current medications include Seroquel 25 mg daily, Zoloft 125 mg daily, Seroquel 75 mg at night, olanzapine 2.5 mg q.2 hours p.r.n., Namenda 10 mg b.i.d., Aricept 10 mg at night, Klonopin 0.5 mg b.i.d. p.r.n. The patient is not having any side effects of the medication. PLAN: To continue with the treatment. LILIANA MARCUS MD DR: MACARIO/anshul JOB#: [id number] / [id number]
[2017-05-29] MEDS: LISINOPRIL 10 MG TABLET PO SCH (07:42)
[2017-05-29] MEDS: PANTOPRAZOLE 40 MG TABLET. PO SCH (07:42)
[2017-05-29] MEDS: SERTRALINE 100 MG TABLET. PO SCH (07:44)
[2017-05-29] MEDS: MEMANTINE 10 MG TABLET. PO SCH ×2 (07:44→19:26)
[2017-05-29] MEDS: QUEtiapine 25 MG TABLET. PO SCH ×2 (07:46→14:19)
[2017-05-29] MEDS: DICLOFENAC SODIUM 75 MG TABLET.DR PO SCH ×2 (07:49→19:28)
[2017-05-29 16:17] VITALS: BP 101/63
--- NOTE | 2017-05-29 17:02 | PN ---
DATE: 05/29/2017 SUBJECTIVE: The patient was seen today, met with the staff, chart reviewed. Staff reports no major problems. The patient continues to wander, significant cognitive deficits. The patient alert, but confused, but no major behavior problems. OBSERVATION: Temperature 98.6, blood pressure 110/75, pulse 73, respirations 16, O2 sat 96%. Slept about 8 hours last night. CURRENT MEDICATIONS: Include Seroquel 37.5 mg daily and 25 mg daily, Zoloft 125 mg daily. The patient is also on Seroquel 75 mg at night. The patient is also on Namenda 10 mg daily, Aricept 10 mg daily, lorazepam 0.5 mg b.i.d. p.r.n. The patient's lab reviewed, which were all within the normal range. The patient's gait is steady, did not have any falls. ASSESSMENT: Major neurocognitive disorder, Alzheimer's, vascular with depression, delusions and behavioral disturbances. PLAN: To continue with the treatment. LILIANA MARCUS MD DR: MACARIO/anshul JOB#: [id number] / [id number]
[2017-05-29] MEDS: DONEPEZIL HCL 10 MG TABLET PO SCH (19:26)
[2017-05-29] MEDS: QUEtiapine 50 MG TABLET. PO SCH (19:27)
[2017-05-29] MEDS: SIMVASTATIN 20 MG TABLET PO SCH (19:28)
[2017-05-30 06:00] VITALS: BP 129/74
[2017-05-30] MEDS: PANTOPRAZOLE 40 MG TABLET. PO SCH (08:17)
[2017-05-30] MEDS: MEMANTINE 10 MG TABLET. PO SCH ×2 (08:17→19:22)
[2017-05-30] MEDS: QUEtiapine 25 MG TABLET. PO SCH ×2 (08:18→14:07)
[2017-05-30] MEDS: SERTRALINE 100 MG TABLET. PO SCH (08:19)
[2017-05-30] MEDS: LISINOPRIL 10 MG TABLET PO SCH (08:20)
[2017-05-30] MEDS: DICLOFENAC SODIUM 75 MG TABLET.DR PO SCH ×2 (08:25→19:23)
[2017-05-30 16:01] VITALS: BP 117/75
[2017-05-30] MEDS: DONEPEZIL HCL 10 MG TABLET PO SCH (19:23)
[2017-05-30] MEDS: QUEtiapine 50 MG TABLET. PO SCH (19:23)
[2017-05-30] MEDS: SIMVASTATIN 20 MG TABLET PO SCH (19:23)
[2017-05-31 05:30] VITALS: BP 127/76
[2017-05-31] MEDS: QUEtiapine 25 MG TABLET. PO SCH ×2 (07:52→14:07)
[2017-05-31] MEDS: MEMANTINE 10 MG TABLET. PO SCH ×2 (07:52→19:38)
[2017-05-31] MEDS: SERTRALINE 100 MG TABLET. PO SCH (07:52)
[2017-05-31] MEDS: PANTOPRAZOLE 40 MG TABLET. PO SCH (07:52)
[2017-05-31] MEDS: LISINOPRIL 10 MG TABLET PO SCH (07:52)
[2017-05-31] MEDS: DICLOFENAC SODIUM 75 MG TABLET.DR PO SCH ×2 (07:52→19:38)
[2017-05-31 16:39] VITALS: BP 106/55
[2017-05-31] MEDS: DONEPEZIL HCL 10 MG TABLET PO SCH (19:38)
[2017-05-31] MEDS: SIMVASTATIN 20 MG TABLET PO SCH (19:38)
[2017-05-31] MEDS: QUEtiapine 50 MG TABLET. PO SCH (19:38)
--- NOTE | 2017-05-31 21:11 | PDOC ---
Exam Note: Emir Note: Please also refer to the separate dictated note~for this date of service dictated separately.~Patient seen individually. Discussed the patient with Nursing staff reviewed the chart.~Reviewed interim history and current functioning. Reviewed vital signs,~Labs/ Radiology~and current medications noted below. Continue current treatment with the changes noted in the dictated addendum note Assessment: Vital Signs: Vital Signs Date Time Temp Pulse Resp B/P (MAP) Pulse Ox O2 Delivery O2 Flow Rate FiO2 05/31/17 16:39 98.6 74 18 106/55 (72) 100 05/28/17 16:13 Room Air I&O Intake and Output 05/31/17 07:00 Intake Total 1615 ml Balance 1615 ml Intake Oral 1615 ml # Voids 4 # Bowel Movements 1 Current Medications: Meds: Current Medications Acetaminophen (Tylenol) 650 mg PRN Q6HRS PRN PO PAIN / TEMP; Start 05/20/17 at 20:15 Multi-Ingredient Ointment (Analgesic [place]) 1 chelle PRN QID PRN TP MUSCLE PAIN; Start 05/20/17 at 20:15 Al Hydroxide/Mg Hydroxide (Mylanta Plus Xs) 15 ml PRN AFTMEALHC PRN PO DYSPEPSIA; Start 05/20/17 at 20:15 Magnesium Hydroxide (Milk Of Magnesia) 2,400 mg PRN QHS PRN PO CONSTIPATION; Start 05/20/17 at 20:15 Clonazepam (KlonoPIN) 0.5 mg PRN BID PRN PO ANXIETY / AGITATION Last administered on 05/28/17 16:02; Start 05/20/17 at 21:45 Donepezil HCl (Aricept) 10 mg QHS PO Last administered on 05/31/17 19:38; Start 05/20/17 at 22:00 Memantine (Namenda) 10 mg BID PO Last administered on 05/31/17 19:38; Start 05/20/17 at 22:00 Quetiapine Fumarate (SEROquel) 25 mg DAILY PO Last administered on 05/21/17 08:40; Start 05/21/17 at 09:00; Stop 05/21/17 at 18:33; Status DC Quetiapine Fumarate (SEROquel) 50 mg QHS PO Last administered on 05/21/17 19: 59; Start 05/20/17 at 22:00; Stop 05/22/17 at 11:24; Status DC Sertraline HCl (Zoloft) 100 mg DAILY PO Last administered on 05/23/17 07:24; Start 05/21/17 at 09:00; Stop 05/23/17 at 19:32; Status DC Pneumococcal Polyvalent Vaccine (Do NOT chart on this entry -- for MONITORING) 1 each 1X ONCE MC ; Start 05/22/17 at 09:00; Stop 05/22/17 at 09:01; Status DC Influenza Virus Vaccine Quadrival (Fluarix Quad 0646-4368 Syringe) 0.5 ml ONCE ONCE VAX IM Last administered on 05/22/17 10:56; Start 05/22/17 at 09:00; Stop 05/22/17 at 09:01; Status DC Acetaminophen (Tylenol) 650 mg PRN Q6HRS PRN PO PAIN / TEMP; Start 05/21/17 at 05:30; Stop 05/21/17 at 05:34; Status DC Diclofenac Sodium (Voltaren) 75 mg BID PO Last administered on 05/31/17 19:38 ; Start 05/21/17 at 09:00 Lisinopril (Prinivil) 10 mg DAILY PO Last administered on 05/31/17 07:52; Start 05/21/17 at 09:00 Simvastatin (Zocor) 20 mg HS PO Last administered on 05/31/17 19:38; Start 05/21/17 at 21:00 Clobetasol Propionate 1 chelle PRN BID PRN TP ITCHING; Start 05/21/17 at 09:00 Pantoprazole Sodium (Protonix) 40 mg DAILYAC PO Last administered on 07:52; Start 05/21/17 at 07:30 Throat Lozenges (Cepacol Sore Throat Lozenge) 1 sara PRN Q2HR PRN PO COUGH; Start 05/21/17 at 05:45 Cyanocobalamin (Vitamin B-12) 1,000 mcg DAILY IM Last administered on 07:41; Start 05/22/17 at 09:00; Stop 05/25/17 at 08:59; Status DC Cyanocobalamin (Vitamin B-12) 1,000 mcg [id number] IM ; Start 06/18/17 at 09:00 Vitamin D (Vitamin D3) 50,000 unit WEEKLY PO Last administered on 05/28/17 08 :28; Start 05/21/17 at 16:00 Quetiapine Fumarate (SEROquel) 25 mg [id number] PO Last administered on 05/26/17 09:44; Start 05/22/17 at 09:00; Stop 05/26/17 at 11:07; Status DC Quetiapine Fumarate (SEROquel) 75 mg QHS PO Last administered on 05/31/17 19: 38; Start 05/22/17 at 21:00 Olanzapine (ZyPREXA ZYDIS) 2.5 mg PRN Q2HR PRN PO PSYCHOSIS/AGITATION; Start 05/22/17 at 19:00 Sertraline HCl (Zoloft) 125 mg DAILY PO Last administered on 05/31/17 07:52; Start 05/24/17 at 09:00 Quetiapine Fumarate (SEROquel) 25 mg DAILY@1400 PO Last administered on 14:07; Start 05/26/17 at 14:00 Quetiapine Fumarate (SEROquel) 37.5 mg DAILY PO Last administered on 07:52; Start 05/27/17 at 09:00 Active Scripts Active Reported Throat Drops (Pectin) 6 Mg Lozenge 6 Mg MM PRN Q4HRS PRN Simvastatin 20 Mg Tablet 20 Mg PO HS Zoloft (Sertraline Hcl) 100 Mg Tablet 100 Mg PO DAILY Seroquel (Quetiapine Fumarate) 50 Mg Tablet 50 Mg PO QHS Seroquel (Quetiapine Fumarate) 25 Mg Tablet 25 Mg PO DAILY Omeprazole 20 Mg Capsule.dr 20 Mg PO DAILY Namenda (Memantine Hcl) 10 Mg Tablet 10 Mg PO BID Lisinopril 10 Mg Tablet 10 Mg PO DAILY Donepezil Hcl 10 Mg Tablet 10 Mg PO QHS Diclofenac Sodium 75 Mg Tablet.dr 75 Mg PO BID Clonazepam 0.5 Mg Tablet 0.5 Mg PO PRN BID PRN Clobetasol Propionate 15 Gm Cream..g. 1 [place] TP PRN BID PRN Tylenol (Acetaminophen) 325 Mg Tablet 650 Mg PO PRN Q6HRS PRN I have reviewed the current psychotropics carefully including drug interactions. Risk benefit ratio favors no change other than as noted in my dictated progress note. Diagnosis: Problems: (1) Encounter for medical screening examination PAM GLEZ MD May 31, 2017 21:11
[2017-06-01 06:30] VITALS: BP 150/73
[2017-06-01] MEDS: PANTOPRAZOLE 40 MG TABLET. PO SCH (07:38)
[2017-06-01] MEDS: QUEtiapine 25 MG TABLET. PO SCH ×2 (07:39→14:52)
[2017-06-01] MEDS: MEMANTINE 10 MG TABLET. PO SCH ×2 (07:40→19:39)
[2017-06-01] MEDS: LISINOPRIL 10 MG TABLET PO SCH (07:40)
[2017-06-01] MEDS: SERTRALINE 100 MG TABLET. PO SCH (07:40)
[2017-06-01] MEDS: DICLOFENAC SODIUM 75 MG TABLET.DR PO SCH ×2 (08:21→19:40)
[2017-06-01 09:18] LABS: BASO # 0.1 x10^3/uL (0.0-0.2); BASO % 1 % (0-3); EOS # 0.1 x10^3/uL (0.0-0.7); EOS % 2 % (0-3); HEMOGLOBIN 13.4 g/dL (12.0-15.5); LYMPH # 1.1 x10^3/uL (1.0-4.8); LYMPH % 16 % (24-48); MEAN CORPUSCULAR HEMOGLOBIN 30 pg (25-35); MEAN CORPUSCULAR HGB CONC 34 g/dL (31-37); MEAN CORPUSCULAR VOLUME 87 fL (79-100); MONO # 0.3 x10^3/uL (0.0-1.1); MONO % 5 % (0-9); NEUT # 5.6 x10^3uL (1.8-7.7); NEUT % 77 % (31-73); PLATELET COUNT 216 x10^3/uL (140-400); RED BLOOD COUNT 4.48 x10^6/uL (3.50-5.40); RED CELL DISTRIBUTION WIDTH 14.2 % (11.5-14.5); WHITE BLOOD COUNT 7.3 x10^3/uL (4.0-11.0)
[2017-06-01 09:41] LABS: ALBUMIN 3.8 g/dL (3.4-5.0); CALCIUM 8.9 mg/dL (8.5-10.1); GFR 56.2; POTASSIUM 4.1 mmol/L (3.5-5.1); TOTAL BILIRUBIN 0.3 mg/dL (0.2-1.0); TOTAL PROTEIN 7.5 g/dL (6.4-8.2)
[2017-06-01 16:04] VITALS: BP 167/79
[2017-06-01] MEDS: SIMVASTATIN 20 MG TABLET PO SCH (19:39)
[2017-06-01] MEDS: DONEPEZIL HCL 10 MG TABLET PO SCH (19:39)
[2017-06-01] MEDS: QUEtiapine 50 MG TABLET. PO SCH (19:39)
--- NOTE | 2017-06-01 20:01 | PDOC ---
Exam Note: Emir Note: Please also refer to the separate dictated note~for this date of service dictated separately.~Patient seen individually. Discussed the patient with Nursing staff reviewed the chart.~Reviewed interim history and current functioning. Reviewed vital signs,~Labs/ Radiology~and current medications noted below. Continue current treatment with the changes noted in the dictated addendum note Assessment: Vital Signs: Vital Signs Date Time Temp Pulse Resp B/P (MAP) Pulse Ox O2 Delivery O2 Flow Rate FiO2 06/01/17 16:04 97.7 80 18 167/79 (108) 97 05/28/17 16:13 Room Air I&O Intake and Output 06/01/17 07:00 Intake Total 960 ml Balance 960 ml Intake Oral 960 ml # Bowel Movements 1 Labs: Laboratory Tests Test 06/01/17 09:01 White Blood Count 7.3 x10^3/uL (4.0-11.0) Red Blood Count 4.48 x10^6/uL (3.50-5.40) Hemoglobin 13.4 g/dL (12.0-15.5) Hematocrit 39.0 % (36.0-47.0) Mean Corpuscular Volume 87 fL (79-100) Mean Corpuscular Hemoglobin 30 pg (25-35) Mean Corpuscular Hemoglobin Concent 34 g/dL (31-37) Red Cell Distribution Width 14.2 % (11.5-14.5) Platelet Count 216 x10^3/uL (140-400) Neutrophils (%) (Auto) 77 % (31-73) H Lymphocytes (%) (Auto) 16 % (24-48) L Monocytes (%) (Auto) 5 % (0-9) Eosinophils (%) (Auto) 2 % (0-3) Basophils (%) (Auto) 1 % (0-3) Neutrophils # (Auto) 5.6 x10^3uL (1.8-7.7) Lymphocytes # (Auto) 1.1 x10^3/uL (1.0-4.8) Monocytes # (Auto) 0.3 x10^3/uL (0.0-1.1) Eosinophils # (Auto) 0.1 x10^3/uL (0.0-0.7) Basophils # (Auto) 0.1 x10^3/uL (0.0-0.2) Sodium Level 143 mmol/L (136-145) Potassium Level 4.1 mmol/L (3.5-5.1) Chloride Level 107 mmol/L (98-107) Carbon Dioxide Level 25 mmol/L (21-32) Anion Gap 11 (6-14) Blood Urea Nitrogen 13 mg/dL (7-20) Creatinine 1.0 mg/dL (0.6-1.0) Estimated GFR (Cockcroft-Gault) 56.2 BUN/Creatinine Ratio 13 (6-20) Glucose Level 162 mg/dL (70-99) H Calcium Level 8.9 mg/dL (8.5-10.1) Total Bilirubin 0.3 mg/dL (0.2-1.0) Aspartate Amino Transferase (AST) 20 U/L (15-37) Alanine Aminotransferase (ALT) 29 U/L (14-59) Alkaline Phosphatase 81 U/L (46-116) Total Protein 7.5 g/dL (6.4-8.2) Albumin 3.8 g/dL (3.4-5.0) Albumin/Globulin Ratio 1.0 (1.0-1.7) Current Medications: Meds: Current Medications Acetaminophen (Tylenol) 650 mg PRN Q6HRS PRN PO PAIN / TEMP; Start 05/20/17 at 20:15 Multi-Ingredient Ointment (Analgesic [place]) 1 chelle PRN QID PRN TP MUSCLE PAIN; Start 05/20/17 at 20:15 Al Hydroxide/Mg Hydroxide (Mylanta Plus Xs) 15 ml PRN AFTMEALHC PRN PO DYSPEPSIA; Start 05/20/17 at 20:15 Magnesium Hydroxide (Milk Of Magnesia) 2,400 mg PRN QHS PRN PO CONSTIPATION; Start 05/20/17 at 20:15 Clonazepam (KlonoPIN) 0.5 mg PRN BID PRN PO ANXIETY / AGITATION Last administered on 05/28/17 16:02; Start 05/20/17 at 21:45 Donepezil HCl (Aricept) 10 mg QHS PO Last administered on 06/01/17 19:39; Start 05/20/17 at 22:00 Memantine (Namenda) 10 mg BID PO Last administered on 06/01/17 19:39; Start 05/20/17 at 22:00 Quetiapine Fumarate (SEROquel) 25 mg DAILY PO Last administered on 05/21/17 08:40; Start 05/21/17 at 09:00; Stop 05/21/17 at 18:33; Status DC Quetiapine Fumarate (SEROquel) 50 mg QHS PO Last administered on 05/21/17 19: 59; Start 05/20/17 at 22:00; Stop 05/22/17 at 11:24; Status DC Sertraline HCl (Zoloft) 100 mg DAILY PO Last administered on 05/23/17 07:24; Start 05/21/17 at 09:00; Stop 05/23/17 at 19:32; Status DC Pneumococcal Polyvalent Vaccine (Do NOT chart on this entry -- for MONITORING) 1 each 1X ONCE MC ; Start 05/22/17 at 09:00; Stop 05/22/17 at 09:01; Status DC Influenza Virus Vaccine Quadrival (Fluarix Quad [id number] Syringe) 0.5 ml ONCE ONCE VAX IM Last administered on 05/22/17 10:56; Start 05/22/17 at 09:00; Stop 05/22/17 at 09:01; Status DC Acetaminophen (Tylenol) 650 mg PRN Q6HRS PRN PO PAIN / TEMP; Start 05/21/17 at 05:30; Stop 05/21/17 at 05:34; Status DC Diclofenac Sodium (Voltaren) 75 mg BID PO Last administered on 06/01/17 19:40 ; Start 05/21/17 at 09:00 Lisinopril (Prinivil) 10 mg DAILY PO Last administered on 06/01/17 07:40; Start 05/21/17 at 09:00 Simvastatin (Zocor) 20 mg HS PO Last administered on 06/01/17 19:39; Start 05/21/17 at 21:00 Clobetasol Propionate 1 chelle PRN BID PRN TP ITCHING; Start 05/21/17 at 09:00 Pantoprazole Sodium (Protonix) 40 mg DAILYAC PO Last administered on 07:38; Start 05/21/17 at 07:30 Throat Lozenges (Cepacol Sore Throat Lozenge) 1 sara PRN Q2HR PRN PO COUGH; Start 05/21/17 at 05:45 Cyanocobalamin (Vitamin B-12) 1,000 mcg DAILY IM Last administered on 07:41; Start 05/22/17 at 09:00; Stop 05/25/17 at 08:59; Status DC Cyanocobalamin (Vitamin B-12) 1,000 mcg [id number] IM ; Start 06/18/17 at 09:00 Vitamin D (Vitamin D3) 50,000 unit WEEKLY PO Last administered on 05/28/17 08 :28; Start 05/21/17 at 16:00 Quetiapine Fumarate (SEROquel) 25 mg [id number] PO Last administered on 05/26/17 09:44; Start 05/22/17 at 09:00; Stop 05/26/17 at 11:07; Status DC Quetiapine Fumarate (SEROquel) 75 mg QHS PO Last administered on 06/01/17 19: 39; Start 05/22/17 at 21:00 Olanzapine (ZyPREXA ZYDIS) 2.5 mg PRN Q2HR PRN PO PSYCHOSIS/AGITATION; Start 05/22/17 at 19:00 Sertraline HCl (Zoloft) 125 mg DAILY PO Last administered on 06/01/17 07:40; Start 05/24/17 at 09:00 Quetiapine Fumarate (SEROquel) 25 mg DAILY@1400 PO Last administered on 14:52; Start 05/26/17 at 14:00 Quetiapine Fumarate (SEROquel) 37.5 mg DAILY PO Last administered on 07:39; Start 05/27/17 at 09:00 Active Scripts Active Reported Throat Drops (Pectin) 6 Mg Lozenge 6 Mg MM PRN Q4HRS PRN Simvastatin 20 Mg Tablet 20 Mg PO HS Zoloft (Sertraline Hcl) 100 Mg Tablet 100 Mg PO DAILY Seroquel (Quetiapine Fumarate) 50 Mg Tablet 50 Mg PO QHS Seroquel (Quetiapine Fumarate) 25 Mg Tablet 25 Mg PO DAILY Omeprazole 20 Mg Capsule.dr 20 Mg PO DAILY Namenda (Memantine Hcl) 10 Mg Tablet 10 Mg PO BID Lisinopril 10 Mg Tablet 10 Mg PO DAILY Donepezil Hcl 10 Mg Tablet 10 Mg PO QHS Diclofenac Sodium 75 Mg Tablet.dr 75 Mg PO BID Clonazepam 0.5 Mg Tablet 0.5 Mg PO PRN BID PRN Clobetasol Propionate 15 Gm Cream..g. 1 [place] TP PRN BID PRN Tylenol (Acetaminophen) 325 Mg Tablet 650 Mg PO PRN Q6HRS PRN I have reviewed the current psychotropics carefully including drug interactions. Risk benefit ratio favors no change other than as noted in my dictated progress note. Diagnosis: Problems: (1) Encounter for medical screening examination PAM GLEZ MD Jun 01, 2017 20:01
--- NOTE | 2017-06-01 21:06 | PN ---
DATE: 05/31/2017 This is a late entry 05/31/2017 covers elements not covered in my initial note 05/31/2017. Met with the patient evening of 05/31/2017. The patient remains confused, wandering, compliant with medications, unsure what to do with her medications at times, unable to find her room, not aggressive. REVIEW OF SYSTEMS: No CV, , pulmonary, eye, ENT system symptoms on review. Reliability poor. MENTAL STATUS EXAM: Oriented to herself. Insight, judgment, recent and remote memory, attention, concentration, fund of knowledge poor, consistent with her diagnosis mentioned in my initial note. PLAN: Continue psychotropics mentioned in my initial note. Reviewed drug interactions, risk/benefit ratio favors no further. MAN Mac GLEZ MD DR: NHUNG/anshul JOB#: [id number] / [id number]
[2017-06-02 06:11] VITALS: BP 151/80
[2017-06-02] MEDS: PANTOPRAZOLE 40 MG TABLET. PO SCH (09:25)
[2017-06-02] MEDS: MEMANTINE 10 MG TABLET. PO SCH ×2 (09:26→19:40)
[2017-06-02] MEDS: LISINOPRIL 10 MG TABLET PO SCH (09:26)
[2017-06-02] MEDS: SERTRALINE 100 MG TABLET. PO SCH (09:27)
[2017-06-02] MEDS: QUEtiapine 25 MG TABLET. PO SCH ×2 (09:28→13:41)
[2017-06-02] MEDS: DICLOFENAC SODIUM 75 MG TABLET.DR PO SCH ×2 (09:32→19:40)
[2017-06-02] MEDS: clonazePAM 0.5 MG TABLET PO PRN (12:51)
[2017-06-02 15:56] VITALS: BP 104/59
[2017-06-02] MEDS: QUEtiapine 50 MG TABLET. PO SCH (19:39)
[2017-06-02] MEDS: SIMVASTATIN 20 MG TABLET PO SCH (19:39)
[2017-06-02] MEDS: DONEPEZIL HCL 10 MG TABLET PO SCH (19:40)
--- NOTE | 2017-06-02 20:13 | PDOC ---
Exam Note: Emir Note: Please also refer to the separate dictated note~for this date of service dictated separately.~Patient seen individually. Discussed the patient with Nursing staff reviewed the chart.~Reviewed interim history and current functioning. Reviewed vital signs,~Labs/ Radiology~and current medications noted below. Continue current treatment with the changes noted in the dictated addendum note Assessment: Vital Signs: Vital Signs Date Time Temp Pulse Resp B/P (MAP) Pulse Ox O2 Delivery O2 Flow Rate FiO2 06/02/17 15:56 97.6 88 20 104/59 (74) 95 05/28/17 16:13 Room Air I&O Intake and Output 06/02/17 07:00 Intake Total 1320 ml Balance 1320 ml Intake Oral 1320 ml # Voids 1 # Bowel Movements 1 Current Medications: Meds: Current Medications Acetaminophen (Tylenol) 650 mg PRN Q6HRS PRN PO PAIN / TEMP; Start 05/20/17 at 20:15 Multi-Ingredient Ointment (Analgesic [place]) 1 chelle PRN QID PRN TP MUSCLE PAIN; Start 05/20/17 at 20:15 Al Hydroxide/Mg Hydroxide (Mylanta Plus Xs) 15 ml PRN AFTMEALHC PRN PO DYSPEPSIA; Start 05/20/17 at 20:15 Magnesium Hydroxide (Milk Of Magnesia) 2,400 mg PRN QHS PRN PO CONSTIPATION; Start 05/20/17 at 20:15 Clonazepam (KlonoPIN) 0.5 mg PRN BID PRN PO ANXIETY / AGITATION Last administered on 06/02/17 12:51; Start 05/20/17 at 21:45 Donepezil HCl (Aricept) 10 mg QHS PO Last administered on 06/02/17 19:40; Start 05/20/17 at 22:00 Memantine (Namenda) 10 mg BID PO Last administered on 06/02/17 19:40; Start 05/20/17 at 22:00 Quetiapine Fumarate (SEROquel) 25 mg DAILY PO Last administered on 05/21/17 08:40; Start 05/21/17 at 09:00; Stop 05/21/17 at 18:33; Status DC Quetiapine Fumarate (SEROquel) 50 mg QHS PO Last administered on 05/21/17 19: 59; Start 05/20/17 at 22:00; Stop 05/22/17 at 11:24; Status DC Sertraline HCl (Zoloft) 100 mg DAILY PO Last administered on 05/23/17 07:24; Start 05/21/17 at 09:00; Stop 05/23/17 at 19:32; Status DC Pneumococcal Polyvalent Vaccine (Do NOT chart on this entry -- for MONITORING) 1 each 1X ONCE MC ; Start 05/22/17 at 09:00; Stop 05/22/17 at 09:01; Status DC Influenza Virus Vaccine Quadrival (Fluarix Quad [id number] Syringe) 0.5 ml ONCE ONCE VAX IM Last administered on 05/22/17 10:56; Start 05/22/17 at 09:00; Stop 05/22/17 at 09:01; Status DC Acetaminophen (Tylenol) 650 mg PRN Q6HRS PRN PO PAIN / TEMP; Start 05/21/17 at 05:30; Stop 05/21/17 at 05:34; Status DC Diclofenac Sodium (Voltaren) 75 mg BID PO Last administered on 06/02/17 19:40 ; Start 05/21/17 at 09:00 Lisinopril (Prinivil) 10 mg DAILY PO Last administered on 06/02/17 09:26; Start 05/21/17 at 09:00 Simvastatin (Zocor) 20 mg HS PO Last administered on 06/02/17 19:39; Start 05/21/17 at 21:00 Clobetasol Propionate 1 chelle PRN BID PRN TP ITCHING; Start 05/21/17 at 09:00 Pantoprazole Sodium (Protonix) 40 mg DAILYAC PO Last administered on 09:25; Start 05/21/17 at 07:30 Throat Lozenges (Cepacol Sore Throat Lozenge) 1 sara PRN Q2HR PRN PO COUGH; Start 05/21/17 at 05:45 Cyanocobalamin (Vitamin B-12) 1,000 mcg DAILY IM Last administered on 07:41; Start 05/22/17 at 09:00; Stop 05/25/17 at 08:59; Status DC Cyanocobalamin (Vitamin B-12) 1,000 mcg [id number] IM ; Start 06/18/17 at 09:00 Vitamin D (Vitamin D3) 50,000 unit WEEKLY PO Last administered on 05/28/17 08 :28; Start 05/21/17 at 16:00 Quetiapine Fumarate (SEROquel) 25 mg [id number] PO Last administered on 05/26/17 09:44; Start 05/22/17 at 09:00; Stop 05/26/17 at 11:07; Status DC Quetiapine Fumarate (SEROquel) 75 mg QHS PO Last administered on 06/02/17 19: 39; Start 05/22/17 at 21:00 Olanzapine (ZyPREXA ZYDIS) 2.5 mg PRN Q2HR PRN PO PSYCHOSIS/AGITATION Last administered on 06/02/17 19:16; Start 05/22/17 at 19:00 Sertraline HCl (Zoloft) 125 mg DAILY PO Last administered on 06/02/17 09:27; Start 05/24/17 at 09:00 Quetiapine Fumarate (SEROquel) 25 mg DAILY@1400 PO Last administered on 13:41; Start 05/26/17 at 14:00 Quetiapine Fumarate (SEROquel) 37.5 mg DAILY PO Last administered on 09:28; Start 05/27/17 at 09:00 Divalproex Sodium (Depakote Sprinkles) 125 mg BID92 PO ; Start 06/03/17 at 09: 00 Active Scripts Active Reported Throat Drops (Pectin) 6 Mg Lozenge 6 Mg MM PRN Q4HRS PRN Simvastatin 20 Mg Tablet 20 Mg PO HS Zoloft (Sertraline Hcl) 100 Mg Tablet 100 Mg PO DAILY Seroquel (Quetiapine Fumarate) 50 Mg Tablet 50 Mg PO QHS Seroquel (Quetiapine Fumarate) 25 Mg Tablet 25 Mg PO DAILY Omeprazole 20 Mg Capsule.dr 20 Mg PO DAILY Namenda (Memantine Hcl) 10 Mg Tablet 10 Mg PO BID Lisinopril 10 Mg Tablet 10 Mg PO DAILY Donepezil Hcl 10 Mg Tablet 10 Mg PO QHS Diclofenac Sodium 75 Mg Tablet.dr 75 Mg PO BID Clonazepam 0.5 Mg Tablet 0.5 Mg PO PRN BID PRN Clobetasol Propionate 15 Gm Cream..g. 1 [place] TP PRN BID PRN Tylenol (Acetaminophen) 325 Mg Tablet 650 Mg PO PRN Q6HRS PRN I have reviewed the current psychotropics carefully including drug interactions. Risk benefit ratio favors no change other than as noted in my dictated progress note. Diagnosis: Problems: (1) Encounter for medical screening examination PAM GLEZ MD Jun 02, 2017 20:13
--- NOTE | 2017-06-03 03:53 | PN ---
DATE: 06/01/2017 This late entry for 06/01/2017 covers elements not covered in my initial note of 06/01/2017. SUBJECTIVE: I met with the patient in the evening of 06/01/2017. The patient remains confused, oriented to herself, not aggressive, often wandering, not sure what she needs to do, agitated at times. REVIEW OF SYSTEMS: No CV, , pulmonary, eye, ENT system symptoms on review. Reliability poor. MENTAL STATUS EXAM: Oriented to herself. Insight, judgment, recent and remote memory, attention, concentration, fund of knowledge poor, consistent with her diagnosis mentioned in my initial note. PLAN: Continue psychotropics mentioned in my initial note. May need to increase Seroquel if anxiety, mood lability persist. MAN Mac GLEZ MD DR: NHUNG/anshul JOB#: [id number] / [id number]
[2017-06-03 06:19] VITALS: BP 165/88
[2017-06-03] MEDS: PANTOPRAZOLE 40 MG TABLET. PO SCH (07:35)
[2017-06-03] MEDS: QUEtiapine 25 MG TABLET. PO SCH ×2 (07:35→14:14)
[2017-06-03] MEDS: SERTRALINE 100 MG TABLET. PO SCH (07:35)
[2017-06-03] MEDS: LISINOPRIL 10 MG TABLET PO SCH (07:36)
[2017-06-03] MEDS: DICLOFENAC SODIUM 75 MG TABLET.DR PO SCH ×2 (07:37→19:33)
[2017-06-03] MEDS: MEMANTINE 10 MG TABLET. PO SCH ×2 (07:37→19:32)
[2017-06-03] MEDS: DIVALPROEX 125 MG CAP.SPRINK PO SCH ×2 (07:39→14:14)
[2017-06-03] MEDS: clonazePAM 0.5 MG TABLET PO PRN (13:07)
[2017-06-03 15:46] VITALS: BP 98/63
[2017-06-03] MEDS: QUEtiapine 50 MG TABLET. PO SCH (19:32)
[2017-06-03] MEDS: SIMVASTATIN 20 MG TABLET PO SCH (19:32)
[2017-06-03] MEDS: DONEPEZIL HCL 10 MG TABLET PO SCH (19:32)
--- NOTE | 2017-06-03 20:11 | PDOC ---
Exam Note: Emir Note: Please also refer to the separate dictated note~for this date of service dictated separately.~Patient seen individually. Discussed the patient with Nursing staff reviewed the chart.~Reviewed interim history and current functioning. Reviewed vital signs,~Labs/ Radiology~and current medications noted below. Continue current treatment with the changes noted in the dictated addendum note Assessment: Vital Signs: Vital Signs Date Time Temp Pulse Resp B/P (MAP) Pulse Ox O2 Delivery O2 Flow Rate FiO2 06/03/17 15:46 98.3 69 20 98/63 (75) 96 Room Air I&O Intake and Output 06/03/17 07:00 Intake Total 1080 ml Balance 1080 ml Intake Oral 1080 ml # Voids 1 Current Medications: Meds: Current Medications Acetaminophen (Tylenol) 650 mg PRN Q6HRS PRN PO PAIN / TEMP; Start 05/20/17 at 20:15 Multi-Ingredient Ointment (Analgesic [place]) 1 chelle PRN QID PRN TP MUSCLE PAIN; Start 05/20/17 at 20:15 Al Hydroxide/Mg Hydroxide (Mylanta Plus Xs) 15 ml PRN AFTMEALHC PRN PO DYSPEPSIA; Start 05/20/17 at 20:15 Magnesium Hydroxide (Milk Of Magnesia) 2,400 mg PRN QHS PRN PO CONSTIPATION; Start 05/20/17 at 20:15 Clonazepam (KlonoPIN) 0.5 mg PRN BID PRN PO ANXIETY / AGITATION Last administered on 06/03/17 13:07; Start 05/20/17 at 21:45 Donepezil HCl (Aricept) 10 mg QHS PO Last administered on 06/03/17 19:32; Start 05/20/17 at 22:00 Memantine (Namenda) 10 mg BID PO Last administered on 06/03/17 19:32; Start 05/20/17 at 22:00 Quetiapine Fumarate (SEROquel) 25 mg DAILY PO Last administered on 05/21/17 08:40; Start 05/21/17 at 09:00; Stop 05/21/17 at 18:33; Status DC Quetiapine Fumarate (SEROquel) 50 mg QHS PO Last administered on 05/21/17 19: 59; Start 05/20/17 at 22:00; Stop 05/22/17 at 11:24; Status DC Sertraline HCl (Zoloft) 100 mg DAILY PO Last administered on 05/23/17 07:24; Start 05/21/17 at 09:00; Stop 05/23/17 at 19:32; Status DC Pneumococcal Polyvalent Vaccine (Do NOT chart on this entry -- for MONITORING) 1 each 1X ONCE MC ; Start 05/22/17 at 09:00; Stop 05/22/17 at 09:01; Status DC Influenza Virus Vaccine Quadrival (Fluarix Quad [id number] Syringe) 0.5 ml ONCE ONCE VAX IM Last administered on 05/22/17 10:56; Start 05/22/17 at 09:00; Stop 05/22/17 at 09:01; Status DC Acetaminophen (Tylenol) 650 mg PRN Q6HRS PRN PO PAIN / TEMP; Start 05/21/17 at 05:30; Stop 05/21/17 at 05:34; Status DC Diclofenac Sodium (Voltaren) 75 mg BID PO Last administered on 06/03/17 19:33 ; Start 05/21/17 at 09:00 Lisinopril (Prinivil) 10 mg DAILY PO Last administered on 06/03/17 07:36; Start 05/21/17 at 09:00 Simvastatin (Zocor) 20 mg HS PO Last administered on 06/03/17 19:32; Start 05/21/17 at 21:00 Clobetasol Propionate 1 chelle PRN BID PRN TP ITCHING; Start 05/21/17 at 09:00 Pantoprazole Sodium (Protonix) 40 mg DAILYAC PO Last administered on 07:35; Start 05/21/17 at 07:30 Throat Lozenges (Cepacol Sore Throat Lozenge) 1 sara PRN Q2HR PRN PO COUGH; Start 05/21/17 at 05:45 Cyanocobalamin (Vitamin B-12) 1,000 mcg DAILY IM Last administered on 07:41; Start 05/22/17 at 09:00; Stop 05/25/17 at 08:59; Status DC Cyanocobalamin (Vitamin B-12) 1,000 mcg [id number] IM ; Start 06/18/17 at 09:00 Vitamin D (Vitamin D3) 50,000 unit WEEKLY PO Last administered on 05/28/17 08 :28; Start 05/21/17 at 16:00 Quetiapine Fumarate (SEROquel) 25 mg [id number] PO Last administered on 05/26/17 09:44; Start 05/22/17 at 09:00; Stop 05/26/17 at 11:07; Status DC Quetiapine Fumarate (SEROquel) 75 mg QHS PO Last administered on 06/03/17 19: 32; Start 05/22/17 at 21:00 Olanzapine (ZyPREXA ZYDIS) 2.5 mg PRN Q2HR PRN PO PSYCHOSIS/AGITATION Last administered on 06/02/17 19:16; Start 05/22/17 at 19:00 Sertraline HCl (Zoloft) 125 mg DAILY PO Last administered on 06/03/17 07:35; Start 05/24/17 at 09:00 Quetiapine Fumarate (SEROquel) 25 mg DAILY@1400 PO Last administered on 14:14; Start 05/26/17 at 14:00 Quetiapine Fumarate (SEROquel) 37.5 mg DAILY PO Last administered on 07:35; Start 05/27/17 at 09:00 Divalproex Sodium (Depakote Sprinkles) 125 mg BID92 PO Last administered on 14:14; Start 06/03/17 at 09:00 Active Scripts Active Reported Throat Drops (Pectin) 6 Mg Lozenge 6 Mg MM PRN Q4HRS PRN Simvastatin 20 Mg Tablet 20 Mg PO HS Zoloft (Sertraline Hcl) 100 Mg Tablet 100 Mg PO DAILY Seroquel (Quetiapine Fumarate) 50 Mg Tablet 50 Mg PO QHS Seroquel (Quetiapine Fumarate) 25 Mg Tablet 25 Mg PO DAILY Omeprazole 20 Mg Capsule.dr 20 Mg PO DAILY Namenda (Memantine Hcl) 10 Mg Tablet 10 Mg PO BID Lisinopril 10 Mg Tablet 10 Mg PO DAILY Donepezil Hcl 10 Mg Tablet 10 Mg PO QHS Diclofenac Sodium 75 Mg Tablet.dr 75 Mg PO BID Clonazepam 0.5 Mg Tablet 0.5 Mg PO PRN BID PRN Clobetasol Propionate 15 Gm Cream..g. 1 [place] TP PRN BID PRN Tylenol (Acetaminophen) 325 Mg Tablet 650 Mg PO PRN Q6HRS PRN I have reviewed the current psychotropics carefully including drug interactions. Risk benefit ratio favors no change other than as noted in my dictated progress note. Diagnosis: Problems: (1) Encounter for medical screening examination PAM GLEZ MD Jun 03, 2017 20:10
[2017-06-04 06:31] VITALS: BP 151/83
[2017-06-04] MEDS: SERTRALINE 100 MG TABLET. PO SCH (08:04)
[2017-06-04] MEDS: DIVALPROEX 125 MG CAP.SPRINK PO SCH ×2 (08:04→14:07)
[2017-06-04] MEDS: MEMANTINE 10 MG TABLET. PO SCH ×2 (08:05→19:25)
[2017-06-04] MEDS: PANTOPRAZOLE 40 MG TABLET. PO SCH (08:05)
[2017-06-04] MEDS: DICLOFENAC SODIUM 75 MG TABLET.DR PO SCH ×2 (08:05→19:26)
[2017-06-04] MEDS: LISINOPRIL 10 MG TABLET PO SCH (08:05)
[2017-06-04] MEDS: CHOLECALCIFEROL (VITAMIN D3) 50,000 UNIT CAPSULE PO SCH (08:05)
[2017-06-04] MEDS: QUEtiapine 25 MG TABLET. PO SCH ×2 (08:06→14:07)
--- NOTE | 2017-06-04 10:59 | PN ---
DATE: 06/02/2017 This late entry 06/02/2017 covers elements not covered in my initial note 06/02/2017. I met with the patient evening of 06/02/2017. The patient did better in the morning, but after lunch she was very agitated, restless, anxious, somewhat irritable, more animated, grandiose, pacing. The patient received Klonopin and Seroquel, which seemed to help. REVIEW OF SYSTEMS: There are no CV, , pulmonary, eye, ENT system symptoms on review. Reliability poor. MENTAL STATUS EXAM: Oriented to herself. Insight, judgment, recent and remote memory, attention, concentration, fund of knowledge poor, consistent with her diagnosis mentioned in my initial note. PLAN: Continue current psychotropics. Start Depakote Sprinkles 125 mg twice a day. Check CBC, CMP, valproic acid level in 3 days. Adjust further as clinically indicated. PAM GLEZ MD DR: NHUNG/anshul JOB#: [id number] / [id number]
[2017-06-04 15:34] VITALS: BP 119/65
[2017-06-04] MEDS: DONEPEZIL HCL 10 MG TABLET PO SCH (19:24)
[2017-06-04] MEDS: SIMVASTATIN 20 MG TABLET PO SCH (19:24)
[2017-06-04] MEDS: QUEtiapine 50 MG TABLET. PO SCH (19:25)
--- NOTE | 2017-06-04 20:13 | PDOC ---
Exam Note: Emir Note: Please also refer to the separate dictated note~for this date of service dictated separately.~Patient seen individually. Discussed the patient with Nursing staff reviewed the chart.~Reviewed interim history and current functioning. Reviewed vital signs,~Labs/ Radiology~and current medications noted below. Continue current treatment with the changes noted in the dictated addendum note Assessment: Vital Signs: Vital Signs Date Time Temp Pulse Resp B/P (MAP) Pulse Ox O2 Delivery O2 Flow Rate FiO2 06/04/17 15:34 97.0 76 18 119/65 (83) 95 06/03/17 15:46 Room Air I&O Intake and Output 06/04/17 07:00 Intake Total 1440 ml Balance 1440 ml Intake Oral 1440 ml Current Medications: Meds: Current Medications Acetaminophen (Tylenol) 650 mg PRN Q6HRS PRN PO PAIN / TEMP; Start 05/20/17 at 20:15 Multi-Ingredient Ointment (Analgesic [place]) 1 chelle PRN QID PRN TP MUSCLE PAIN; Start 05/20/17 at 20:15 Al Hydroxide/Mg Hydroxide (Mylanta Plus Xs) 15 ml PRN AFTMEALHC PRN PO DYSPEPSIA; Start 05/20/17 at 20:15 Magnesium Hydroxide (Milk Of Magnesia) 2,400 mg PRN QHS PRN PO CONSTIPATION; Start 05/20/17 at 20:15 Clonazepam (KlonoPIN) 0.5 mg PRN BID PRN PO ANXIETY / AGITATION Last administered on 06/03/17 13:07; Start 05/20/17 at 21:45 Donepezil HCl (Aricept) 10 mg QHS PO Last administered on 06/04/17 19:24; Start 05/20/17 at 22:00 Memantine (Namenda) 10 mg BID PO Last administered on 06/04/17 19:25; Start 05/20/17 at 22:00 Quetiapine Fumarate (SEROquel) 25 mg DAILY PO Last administered on 05/21/17 08:40; Start 05/21/17 at 09:00; Stop 05/21/17 at 18:33; Status DC Quetiapine Fumarate (SEROquel) 50 mg QHS PO Last administered on 05/21/17 19: 59; Start 05/20/17 at 22:00; Stop 05/22/17 at 11:24; Status DC Sertraline HCl (Zoloft) 100 mg DAILY PO Last administered on 05/23/17 07:24; Start 05/21/17 at 09:00; Stop 05/23/17 at 19:32; Status DC Pneumococcal Polyvalent Vaccine (Do NOT chart on this entry -- for MONITORING) 1 each 1X ONCE MC ; Start 05/22/17 at 09:00; Stop 05/22/17 at 09:01; Status DC Influenza Virus Vaccine Quadrival (Fluarix Quad 4184-3746 Syringe) 0.5 ml ONCE ONCE VAX IM Last administered on 05/22/17 10:56; Start 05/22/17 at 09:00; Stop 05/22/17 at 09:01; Status DC Acetaminophen (Tylenol) 650 mg PRN Q6HRS PRN PO PAIN / TEMP; Start 05/21/17 at 05:30; Stop 05/21/17 at 05:34; Status DC Diclofenac Sodium (Voltaren) 75 mg BID PO Last administered on 06/04/17 19:26 ; Start 05/21/17 at 09:00 Lisinopril (Prinivil) 10 mg DAILY PO Last administered on 06/04/17 08:05; Start 05/21/17 at 09:00 Simvastatin (Zocor) 20 mg HS PO Last administered on 06/04/17 19:24; Start 05/21/17 at 21:00 Clobetasol Propionate 1 chelle PRN BID PRN TP ITCHING; Start 05/21/17 at 09:00 Pantoprazole Sodium (Protonix) 40 mg DAILYAC PO Last administered on 08:05; Start 05/21/17 at 07:30 Throat Lozenges (Cepacol Sore Throat Lozenge) 1 sara PRN Q2HR PRN PO COUGH; Start 05/21/17 at 05:45 Cyanocobalamin (Vitamin B-12) 1,000 mcg DAILY IM Last administered on 07:41; Start 05/22/17 at 09:00; Stop 05/25/17 at 08:59; Status DC Cyanocobalamin (Vitamin B-12) 1,000 mcg [id number] IM ; Start 06/18/17 at 09:00 Vitamin D (Vitamin D3) 50,000 unit WEEKLY PO Last administered on 06/04/17 08 :05; Start 05/21/17 at 16:00 Quetiapine Fumarate (SEROquel) 25 mg [id number] PO Last administered on 05/26/17 09:44; Start 05/22/17 at 09:00; Stop 05/26/17 at 11:07; Status DC Quetiapine Fumarate (SEROquel) 75 mg QHS PO Last administered on 06/04/17 19: 25; Start 05/22/17 at 21:00 Olanzapine (ZyPREXA ZYDIS) 2.5 mg PRN Q2HR PRN PO PSYCHOSIS/AGITATION Last administered on 06/02/17 19:16; Start 05/22/17 at 19:00 Sertraline HCl (Zoloft) 125 mg DAILY PO Last administered on 06/04/17 08:04; Start 05/24/17 at 09:00 Quetiapine Fumarate (SEROquel) 25 mg DAILY@1400 PO Last administered on 14:07; Start 05/26/17 at 14:00 Quetiapine Fumarate (SEROquel) 37.5 mg DAILY PO Last administered on 08:06; Start 05/27/17 at 09:00 Divalproex Sodium (Depakote Sprinkles) 125 mg [id number] PO Last administered on 14:07; Start 06/03/17 at 09:00 Active Scripts Active Reported Throat Drops (Pectin) 6 Mg Lozenge 6 Mg MM PRN Q4HRS PRN Simvastatin 20 Mg Tablet 20 Mg PO HS Zoloft (Sertraline Hcl) 100 Mg Tablet 100 Mg PO DAILY Seroquel (Quetiapine Fumarate) 50 Mg Tablet 50 Mg PO QHS Seroquel (Quetiapine Fumarate) 25 Mg Tablet 25 Mg PO DAILY Omeprazole 20 Mg Capsule.dr 20 Mg PO DAILY Namenda (Memantine Hcl) 10 Mg Tablet 10 Mg PO BID Lisinopril 10 Mg Tablet 10 Mg PO DAILY Donepezil Hcl 10 Mg Tablet 10 Mg PO QHS Diclofenac Sodium 75 Mg Tablet.dr 75 Mg PO BID Clonazepam 0.5 Mg Tablet 0.5 Mg PO PRN BID PRN Clobetasol Propionate 15 Gm Cream..g. 1 [place] TP PRN BID PRN Tylenol (Acetaminophen) 325 Mg Tablet 650 Mg PO PRN Q6HRS PRN I have reviewed the current psychotropics carefully including drug interactions. Risk benefit ratio favors no change other than as noted in my dictated progress note. Diagnosis: Problems: (1) Encounter for medical screening examination PAM GLEZ MD Jun 04, 2017 20:13
[2017-06-05 06:04] VITALS: BP 146/77
[2017-06-05 06:59] LABS: BASO # 0.1 x10^3/uL (0.0-0.2); BASO % 1 % (0-3); EOS # 0.2 x10^3/uL (0.0-0.7); EOS % 3 % (0-3); HEMATOCRIT 38.6 % (36.0-47.0); HEMOGLOBIN 13.5 g/dL (12.0-15.5); LYMPH # 1.3 x10^3/uL (1.0-4.8); LYMPH % 19 % (24-48); MEAN CORPUSCULAR HEMOGLOBIN 30 pg (25-35); MEAN CORPUSCULAR HGB CONC 35 g/dL (31-37); MEAN CORPUSCULAR VOLUME 86 fL (79-100); MONO # 0.6 x10^3/uL (0.0-1.1); MONO % 8 % (0-9); NEUT # 4.9 x10^3uL (1.8-7.7); NEUT % 69 % (31-73); PLATELET COUNT 191 x10^3/uL (140-400); RED BLOOD COUNT 4.48 x10^6/uL (3.50-5.40); WHITE BLOOD COUNT 7.1 x10^3/uL (4.0-11.0)
[2017-06-05 07:06] LABS: ALBUMIN 3.5 g/dL (3.4-5.0); ALK PHOS 75 U/L (46-116); ALT (SGPT) 25 U/L (14-59); ANION GAP 9 (6-14); AST (SGOT) 16 U/L (15-37); BLOOD UREA NITROGEN 16 mg/dL (7-20); BUN/CREATININE RATIO 18 (6-20); CALCIUM 8.7 mg/dL (8.5-10.1); CARBON DIOXIDE 26 mmol/L (21-32); CHLORIDE 108 mmol/L (98-107); CREATININE 0.9 mg/dL (0.6-1.0); GFR 63.4; GLUCOSE 131 mg/dL (70-99); POTASSIUM 4.2 mmol/L (3.5-5.1); SODIUM 143 mmol/L (136-145); TOTAL BILIRUBIN 0.4 mg/dL (0.2-1.0)
[2017-06-05 07:08] LABS: VAL ACID 12 mcg/mL (50-100)
[2017-06-05] MEDS: DICLOFENAC SODIUM 75 MG TABLET.DR PO SCH ×2 (07:56→19:29)
[2017-06-05] MEDS: QUEtiapine 25 MG TABLET. PO SCH ×2 (07:57→14:18)
[2017-06-05] MEDS: PANTOPRAZOLE 40 MG TABLET. PO SCH (07:57)
[2017-06-05] MEDS: MEMANTINE 10 MG TABLET. PO SCH ×2 (07:58→19:26)
[2017-06-05] MEDS: SERTRALINE 100 MG TABLET. PO SCH (07:58)
[2017-06-05] MEDS: DIVALPROEX 125 MG CAP.SPRINK PO SCH ×2 (07:58→14:18)
[2017-06-05] MEDS: LISINOPRIL 10 MG TABLET PO SCH (07:58)
--- NOTE | 2017-06-05 10:59 | PN ---
DATE: 06/03/2017 PSYCHIATRIC PROGRESS NOTE This is a late entry for 06/03/2017 covers elements not covered in my initial note of 06/03/2017. SUBJECTIVE: I met with the patient evening of 06/03/2017. The patient remains confused, speech is word salad. The previous evening, she was somewhat delusional, agitated, threw things on the ground, frustrated easily. She forgot about it where I addressed this with her. REVIEW OF SYSTEMS: No CV, , pulmonary, eye, ENT system symptoms on review. Reliability poor. MENTAL STATUS EXAM: Oriented to herself. Insight, judgment, recent and remote memory, attention, concentration, fund of knowledge poor, consistent with her diagnosis mentioned in my initial note. PLAN: Continue current psychotropics, reviewed drug interactions, risk/benefit ratio favors no further change. MAN Mac GLEZ MD DR: NHUNG/anshul JOB#: [id number] / [id number]
[2017-06-05 16:02] VITALS: BP 102/66
[2017-06-05] MEDS: MAGNESIUM HYDROXIDE 2,400 MG/30 ML ORAL.SUSP. PO PRN (17:08)
[2017-06-05] MEDS: clonazePAM 0.5 MG TABLET PO PRN (18:10)
[2017-06-05] MEDS: QUEtiapine 50 MG TABLET. PO SCH (19:25)
[2017-06-05] MEDS: DONEPEZIL HCL 10 MG TABLET PO SCH (19:26)
[2017-06-05] MEDS: SIMVASTATIN 20 MG TABLET PO SCH (19:26)
--- NOTE | 2017-06-05 20:08 | PDOC ---
Exam Note: Emir Note: Please also refer to the separate dictated note~for this date of service dictated separately.~Patient seen individually. Discussed the patient with Nursing staff reviewed the chart.~Reviewed interim history and current functioning. Reviewed vital signs,~Labs/ Radiology~and current medications noted below. Continue current treatment with the changes noted in the dictated addendum note Assessment: Vital Signs: Vital Signs Date Time Temp Pulse Resp B/P (MAP) Pulse Ox O2 Delivery O2 Flow Rate FiO2 06/05/17 16:02 98.1 70 18 102/66 (78) 98 Room Air I&O Intake and Output 06/05/17 07:00 Intake Total 1080 ml Balance 1080 ml Intake Oral 1080 ml # Voids 2 Labs: Laboratory Tests Test 06/05/17 06:43 White Blood Count 7.1 x10^3/uL (4.0-11.0) Red Blood Count 4.48 x10^6/uL (3.50-5.40) Hemoglobin 13.5 g/dL (12.0-15.5) Hematocrit 38.6 % (36.0-47.0) Mean Corpuscular Volume 86 fL (79-100) Mean Corpuscular Hemoglobin 30 pg (25-35) Mean Corpuscular Hemoglobin Concent 35 g/dL (31-37) Red Cell Distribution Width 14.0 % (11.5-14.5) Platelet Count 191 x10^3/uL (140-400) Neutrophils (%) (Auto) 69 % (31-73) Lymphocytes (%) (Auto) 19 % (24-48) L Monocytes (%) (Auto) 8 % (0-9) Eosinophils (%) (Auto) 3 % (0-3) Basophils (%) (Auto) 1 % (0-3) Neutrophils # (Auto) 4.9 x10^3uL (1.8-7.7) Lymphocytes # (Auto) 1.3 x10^3/uL (1.0-4.8) Monocytes # (Auto) 0.6 x10^3/uL (0.0-1.1) Eosinophils # (Auto) 0.2 x10^3/uL (0.0-0.7) Basophils # (Auto) 0.1 x10^3/uL (0.0-0.2) Sodium Level 143 mmol/L (136-145) Potassium Level 4.2 mmol/L (3.5-5.1) Chloride Level 108 mmol/L (98-107) H Carbon Dioxide Level 26 mmol/L (21-32) Anion Gap 9 (6-14) Blood Urea Nitrogen 16 mg/dL (7-20) Creatinine 0.9 mg/dL (0.6-1.0) Estimated GFR (Cockcroft-Gault) 63.4 BUN/Creatinine Ratio 18 (6-20) Glucose Level 131 mg/dL (70-99) H Calcium Level 8.7 mg/dL (8.5-10.1) Total Bilirubin 0.4 mg/dL (0.2-1.0) Aspartate Amino Transferase (AST) 16 U/L (15-37) Alanine Aminotransferase (ALT) 25 U/L (14-59) Alkaline Phosphatase 75 U/L (46-116) Total Protein 7.0 g/dL (6.4-8.2) Albumin 3.5 g/dL (3.4-5.0) Albumin/Globulin Ratio 1.0 (1.0-1.7) Valproic Acid Level 12 mcg/mL (50-100) L Valproic Acid Last Dose Date 06/04/2017 Valproic Acid Last Dose Time 1400 Current Medications: Meds: Current Medications Acetaminophen (Tylenol) 650 mg PRN Q6HRS PRN PO PAIN / TEMP; Start 05/20/17 at 20:15 Multi-Ingredient Ointment (Analgesic [place]) 1 chelle PRN QID PRN TP MUSCLE PAIN; Start 05/20/17 at 20:15 Al Hydroxide/Mg Hydroxide (Mylanta Plus Xs) 15 ml PRN AFTMEALHC PRN PO DYSPEPSIA; Start 05/20/17 at 20:15 Magnesium Hydroxide (Milk Of Magnesia) 2,400 mg PRN QHS PRN PO CONSTIPATION Last administered on 06/05/17 17:08; Start 05/20/17 at 20:15 Clonazepam (KlonoPIN) 0.5 mg PRN BID PRN PO ANXIETY / AGITATION Last administered on 06/05/17 18:10; Start 05/20/17 at 21:45 Donepezil HCl (Aricept) 10 mg QHS PO Last administered on 06/05/17 19:26; Start 05/20/17 at 22:00 Memantine (Namenda) 10 mg BID PO Last administered on 06/05/17 19:26; Start 05/20/17 at 22:00 Quetiapine Fumarate (SEROquel) 25 mg DAILY PO Last administered on 05/21/17 08:40; Start 05/21/17 at 09:00; Stop 05/21/17 at 18:33; Status DC Quetiapine Fumarate (SEROquel) 50 mg QHS PO Last administered on 05/21/17 19: 59; Start 05/20/17 at 22:00; Stop 05/22/17 at 11:24; Status DC Sertraline HCl (Zoloft) 100 mg DAILY PO Last administered on 05/23/17 07:24; Start 05/21/17 at 09:00; Stop 05/23/17 at 19:32; Status DC Pneumococcal Polyvalent Vaccine (Do NOT chart on this entry -- for MONITORING) 1 each 1X ONCE MC ; Start 05/22/17 at 09:00; Stop 05/22/17 at 09:01; Status DC Influenza Virus Vaccine Quadrival (Fluarix Quad [id number] Syringe) 0.5 ml ONCE ONCE VAX IM Last administered on 05/22/17 10:56; Start 05/22/17 at 09:00; Stop 05/22/17 at 09:01; Status DC Acetaminophen (Tylenol) 650 mg PRN Q6HRS PRN PO PAIN / TEMP; Start 05/21/17 at 05:30; Stop 05/21/17 at 05:34; Status DC Diclofenac Sodium (Voltaren) 75 mg BID PO Last administered on 06/05/17 19:29 ; Start 05/21/17 at 09:00 Lisinopril (Prinivil) 10 mg DAILY PO Last administered on 06/05/17 07:58; Start 05/21/17 at 09:00 Simvastatin (Zocor) 20 mg HS PO Last administered on 06/05/17 19:26; Start 05/21/17 at 21:00 Clobetasol Propionate 1 chelle PRN BID PRN TP ITCHING; Start 05/21/17 at 09:00 Pantoprazole Sodium (Protonix) 40 mg DAILYAC PO Last administered on 07:57; Start 05/21/17 at 07:30 Throat Lozenges (Cepacol Sore Throat Lozenge) 1 sara PRN Q2HR PRN PO COUGH; Start 05/21/17 at 05:45 Cyanocobalamin (Vitamin B-12) 1,000 mcg DAILY IM Last administered on 07:41; Start 05/22/17 at 09:00; Stop 05/25/17 at 08:59; Status DC Cyanocobalamin (Vitamin B-12) 1,000 mcg [id number] IM ; Start 06/18/17 at 09:00 Vitamin D (Vitamin D3) 50,000 unit WEEKLY PO Last administered on 06/04/17 08 :05; Start 05/21/17 at 16:00 Quetiapine Fumarate (SEROquel) 25 mg [id number] PO Last administered on 05/26/17 09:44; Start 05/22/17 at 09:00; Stop 05/26/17 at 11:07; Status DC Quetiapine Fumarate (SEROquel) 75 mg QHS PO Last administered on 06/05/17 19: 25; Start 05/22/17 at 21:00 Olanzapine (ZyPREXA ZYDIS) 2.5 mg PRN Q2HR PRN PO PSYCHOSIS/AGITATION Last administered on 06/02/17 19:16; Start 05/22/17 at 19:00 Sertraline HCl (Zoloft) 125 mg DAILY PO Last administered on 06/05/17 07:58; Start 05/24/17 at 09:00 Quetiapine Fumarate (SEROquel) 25 mg DAILY@1400 PO Last administered on 14:18; Start 05/26/17 at 14:00 Quetiapine Fumarate (SEROquel) 37.5 mg DAILY PO Last administered on 07:57; Start 05/27/17 at 09:00 Divalproex Sodium (Depakote Sprinkles) 125 mg [id number] PO Last administered on 07:58; Start 06/03/17 at 09:00; Stop 06/05/17 at 11:51; Status DC Divalproex Sodium (Depakote Sprinkles) 250 mg [id number] PO Last administered on 11/ 30/17at 14:18; Start 06/05/17 at 14:00 Active Scripts Active Reported Throat Drops (Pectin) 6 Mg Lozenge 6 Mg MM PRN Q4HRS PRN Simvastatin 20 Mg Tablet 20 Mg PO HS Zoloft (Sertraline Hcl) 100 Mg Tablet 100 Mg PO DAILY Seroquel (Quetiapine Fumarate) 50 Mg Tablet 50 Mg PO QHS Seroquel (Quetiapine Fumarate) 25 Mg Tablet 25 Mg PO DAILY Omeprazole 20 Mg Capsule.dr 20 Mg PO DAILY Namenda (Memantine Hcl) 10 Mg Tablet 10 Mg PO BID Lisinopril 10 Mg Tablet 10 Mg PO DAILY Donepezil Hcl 10 Mg Tablet 10 Mg PO QHS Diclofenac Sodium 75 Mg Tablet.dr 75 Mg PO BID Clonazepam 0.5 Mg Tablet 0.5 Mg PO PRN BID PRN Clobetasol Propionate 15 Gm Cream..g. 1 [place] TP PRN BID PRN Tylenol (Acetaminophen) 325 Mg Tablet 650 Mg PO PRN Q6HRS PRN I have reviewed the current psychotropics carefully including drug interactions. Risk benefit ratio favors no change other than as noted in my dictated progress note. Diagnosis: Problems: (1) Encounter for medical screening examination PAM GLEZ MD Jun 05, 2017 20:08
[2017-06-06 05:47] VITALS: BP 158/83
[2017-06-06] MEDS: SERTRALINE 100 MG TABLET. PO SCH (07:48)
[2017-06-06] MEDS: QUEtiapine 25 MG TABLET. PO SCH ×2 (07:48→13:55)
[2017-06-06] MEDS: MEMANTINE 10 MG TABLET. PO SCH ×2 (07:49→19:46)
[2017-06-06] MEDS: PANTOPRAZOLE 40 MG TABLET. PO SCH (07:49)
[2017-06-06] MEDS: DIVALPROEX 125 MG CAP.SPRINK PO SCH ×2 (07:49→13:55)
[2017-06-06] MEDS: LISINOPRIL 10 MG TABLET PO SCH (07:49)
[2017-06-06] MEDS: DICLOFENAC SODIUM 75 MG TABLET.DR PO SCH ×2 (07:51→19:47)
[2017-06-06 15:55] VITALS: BP 105/66
[2017-06-06] MEDS: MAGNESIUM HYDROXIDE 2,400 MG/30 ML ORAL.SUSP. PO PRN (16:51)
[2017-06-06] MEDS: SIMVASTATIN 20 MG TABLET PO SCH (19:46)
[2017-06-06] MEDS: QUEtiapine 50 MG TABLET. PO SCH (19:46)
[2017-06-06] MEDS: DONEPEZIL HCL 10 MG TABLET PO SCH (19:46)
--- NOTE | 2017-06-06 20:28 | PDOC ---
Exam Note: Emir Note: Please also refer to the separate dictated note~for this date of service dictated separately.~Patient seen individually. Discussed the patient with Nursing staff reviewed the chart.~Reviewed interim history and current functioning. Reviewed vital signs,~Labs/ Radiology~and current medications noted below. Continue current treatment with the changes noted in the dictated addendum note Assessment: Vital Signs: Vital Signs Date Time Temp Pulse Resp B/P (MAP) Pulse Ox O2 Delivery O2 Flow Rate FiO2 06/06/17 15:55 97.7 72 18 105/66 (79) 98 06/05/17 16:02 Room Air I&O Intake and Output 06/06/17 07:00 Intake Total 1320 ml Balance 1320 ml Intake Oral 1320 ml Current Medications: Meds: Current Medications Acetaminophen (Tylenol) 650 mg PRN Q6HRS PRN PO PAIN / TEMP; Start 05/20/17 at 20:15 Multi-Ingredient Ointment (Analgesic [place]) 1 chelle PRN QID PRN TP MUSCLE PAIN; Start 05/20/17 at 20:15 Al Hydroxide/Mg Hydroxide (Mylanta Plus Xs) 15 ml PRN AFTMEALHC PRN PO DYSPEPSIA; Start 05/20/17 at 20:15 Magnesium Hydroxide (Milk Of Magnesia) 2,400 mg PRN QHS PRN PO CONSTIPATION Last administered on 06/06/17 16:51; Start 05/20/17 at 20:15 Clonazepam (KlonoPIN) 0.5 mg PRN BID PRN PO ANXIETY / AGITATION Last administered on 06/05/17 18:10; Start 05/20/17 at 21:45 Donepezil HCl (Aricept) 10 mg QHS PO Last administered on 06/06/17 19:46; Start 05/20/17 at 22:00 Memantine (Namenda) 10 mg BID PO Last administered on 06/06/17 19:46; Start 05/20/17 at 22:00 Quetiapine Fumarate (SEROquel) 25 mg DAILY PO Last administered on 05/21/17 08:40; Start 05/21/17 at 09:00; Stop 05/21/17 at 18:33; Status DC Quetiapine Fumarate (SEROquel) 50 mg QHS PO Last administered on 05/21/17 19: 59; Start 05/20/17 at 22:00; Stop 05/22/17 at 11:24; Status DC Sertraline HCl (Zoloft) 100 mg DAILY PO Last administered on 05/23/17 07:24; Start 05/21/17 at 09:00; Stop 05/23/17 at 19:32; Status DC Pneumococcal Polyvalent Vaccine (Do NOT chart on this entry -- for MONITORING) 1 each 1X ONCE MC ; Start 05/22/17 at 09:00; Stop 05/22/17 at 09:01; Status DC Influenza Virus Vaccine Quadrival (Fluarix Quad [id number] Syringe) 0.5 ml ONCE ONCE VAX IM Last administered on 05/22/17 10:56; Start 05/22/17 at 09:00; Stop 05/22/17 at 09:01; Status DC Acetaminophen (Tylenol) 650 mg PRN Q6HRS PRN PO PAIN / TEMP; Start 05/21/17 at 05:30; Stop 05/21/17 at 05:34; Status DC Diclofenac Sodium (Voltaren) 75 mg BID PO Last administered on 06/06/17 19:47 ; Start 05/21/17 at 09:00 Lisinopril (Prinivil) 10 mg DAILY PO Last administered on 06/06/17 07:49; Start 05/21/17 at 09:00 Simvastatin (Zocor) 20 mg HS PO Last administered on 06/06/17 19:46; Start at 21:00 Clobetasol Propionate 1 chelle PRN BID PRN TP ITCHING; Start 05/21/17 at 09:00 Pantoprazole Sodium (Protonix) 40 mg DAILYAC PO Last administered on 06/06/17 07:49; Start 05/21/17 at 07:30 Throat Lozenges (Cepacol Sore Throat Lozenge) 1 sara PRN Q2HR PRN PO COUGH; Start 05/21/17 at 05:45 Cyanocobalamin (Vitamin B-12) 1,000 mcg DAILY IM Last administered on 07:41; Start 05/22/17 at 09:00; Stop 05/25/17 at 08:59; Status DC Cyanocobalamin (Vitamin B-12) 1,000 mcg [id number] IM ; Start 06/18/17 at 09:00 Vitamin D (Vitamin D3) 50,000 unit WEEKLY PO Last administered on 06/04/17 08 :05; Start 05/21/17 at 16:00 Quetiapine Fumarate (SEROquel) 25 mg [id number] PO Last administered on 05/26/17 09:44; Start 05/22/17 at 09:00; Stop 05/26/17 at 11:07; Status DC Quetiapine Fumarate (SEROquel) 75 mg QHS PO Last administered on 06/06/17 19: 46; Start 05/22/17 at 21:00 Olanzapine (ZyPREXA ZYDIS) 2.5 mg PRN Q2HR PRN PO PSYCHOSIS/AGITATION Last administered on 06/02/17 19:16; Start 05/22/17 at 19:00 Sertraline HCl (Zoloft) 125 mg DAILY PO Last administered on 06/06/17 07:48; Start 05/24/17 at 09:00 Quetiapine Fumarate (SEROquel) 25 mg DAILY@1400 PO Last administered on 13:55; Start 05/26/17 at 14:00 Quetiapine Fumarate (SEROquel) 37.5 mg DAILY PO Last administered on 06/06/17 07:48; Start 05/27/17 at 09:00 Divalproex Sodium (Depakote Sprinkles) 125 mg BID92 PO Last administered on 07:58; Start 06/03/17 at 09:00; Stop 06/05/17 at 11:51; Status DC Divalproex Sodium (Depakote Sprinkles) 250 mg [id number] PO Last administered on 13:55; Start 06/05/17 at 14:00 Active Scripts Active Reported Throat Drops (Pectin) 6 Mg Lozenge 6 Mg MM PRN Q4HRS PRN Simvastatin 20 Mg Tablet 20 Mg PO HS Zoloft (Sertraline Hcl) 100 Mg Tablet 100 Mg PO DAILY Seroquel (Quetiapine Fumarate) 50 Mg Tablet 50 Mg PO QHS Seroquel (Quetiapine Fumarate) 25 Mg Tablet 25 Mg PO DAILY Omeprazole 20 Mg Capsule.dr 20 Mg PO DAILY Namenda (Memantine Hcl) 10 Mg Tablet 10 Mg PO BID Lisinopril 10 Mg Tablet 10 Mg PO DAILY Donepezil Hcl 10 Mg Tablet 10 Mg PO QHS Diclofenac Sodium 75 Mg Tablet.dr 75 Mg PO BID Clonazepam 0.5 Mg Tablet 0.5 Mg PO PRN BID PRN Clobetasol Propionate 15 Gm Cream..g. 1 [place] TP PRN BID PRN Tylenol (Acetaminophen) 325 Mg Tablet 650 Mg PO PRN Q6HRS PRN I have reviewed the current psychotropics carefully including drug interactions. Risk benefit ratio favors no change other than as noted in my dictated progress note. Diagnosis: Problems: (1) Encounter for medical screening examination PAM GLEZ MD Jun 06, 2017 20:28
[2017-06-07 06:11] VITALS: BP 132/81
--- NOTE | 2017-06-07 06:56 | PN ---
DATE: 06/04/2017 This is a late entry for 06/04/2017 and covers elements not covered in my initial note of 06/04/2017. I met with the patient the evening of 06/04/2017. She remains confused, gets more agitated in the evening and walking around the hallway with her blanket, oblivious of where her room was. It is easy to distract her. However, keeping a smile while interacting with her, minimizing her confusion and the effect of this. She responds to this. REVIEW OF SYSTEMS: No CV, , pulmonary, eye, ENT system symptoms on review. Reliability poor. MENTAL STATUS EXAM: Oriented to herself. Insight, judgment, recent and remote memory, attention, concentration, fund of knowledge poor, consistent with her diagnosis as mentioned in my initial note. PLAN: Continue current psychotropics, follow labs level on the Depakote on 06/05/2017. Adjust further as clinically indicated. PAM GLEZ MD DR: NHUNG/anshul JOB#: [id number] / [id number]
--- NOTE | 2017-06-07 07:05 | PN ---
DATE: 06/05/2017 This late entry 06/05/2017 covers elements not covered in my initial note 06/05/2017. SUBJECTIVE: The patient was staffed at a treatment team meeting with the entire team morning of 06/05/2017. Seen individually evening of 06/05/2017. She remains confused, walks around the unit, still somewhat withdrawn, gets frustrated, more so in the evening when the confusion worsens. No CV, , pulmonary, eye, ENT system symptoms on review. Reliability poor. MENTAL STATUS EXAM: Oriented to herself. Insight, judgment, recent and remote memory, attention, concentration, fund of knowledge poor, consistent with her diagnosis mentioned in my initial note. LABORATORY DATA: Reviewed. Valproic acid level 12. IMPRESSION: Unchanged from initial note. PLAN: Depakote currently is 125 mg b.i.d., will change it to 250 mg b.i.d. Check CBC, CMP, valproic acid level in 3 days. Maintain the Seroquel, Namenda, Aricept, Zoloft, Klonopin p.r.n., Zyprexa p.r.n., unchanged at the current dosage. PAM GLEZ MD DR: NHUGN/anshul JOB#: [id number] / [id number]
[2017-06-07] MEDS: DIVALPROEX 125 MG CAP.SPRINK PO SCH ×2 (08:29→14:03)
[2017-06-07] MEDS: PANTOPRAZOLE 40 MG TABLET. PO SCH (08:29)
[2017-06-07] MEDS: MEMANTINE 10 MG TABLET. PO SCH ×2 (08:29→19:26)
[2017-06-07] MEDS: QUEtiapine 25 MG TABLET. PO SCH ×2 (08:30→14:03)
[2017-06-07] MEDS: LISINOPRIL 10 MG TABLET PO SCH (08:30)
[2017-06-07] MEDS: SERTRALINE 100 MG TABLET. PO SCH ×2 (08:31→09:00)
[2017-06-07] MEDS: SERTRALINE 25 MG TABLET. PO SCH (09:00)
[2017-06-07] MEDS: DICLOFENAC SODIUM 75 MG TABLET.DR PO SCH ×2 (09:24→19:28)
[2017-06-07 16:32] VITALS: BP 113/62
[2017-06-07] MEDS: DONEPEZIL HCL 10 MG TABLET PO SCH (19:26)
[2017-06-07] MEDS: SIMVASTATIN 20 MG TABLET PO SCH (19:27)
[2017-06-07] MEDS: QUEtiapine 50 MG TABLET. PO SCH (19:27)
--- NOTE | 2017-06-07 21:53 | PDOC ---
Exam Note: Emir Note: Please also refer to the separate dictated note~for this date of service dictated separately.~Patient seen individually. Discussed the patient with Nursing staff reviewed the chart.~Reviewed interim history and current functioning. Reviewed vital signs,~Labs/ Radiology~and current medications noted below. Continue current treatment with the changes noted in the dictated addendum note Assessment: Vital Signs: Vital Signs Date Time Temp Pulse Resp B/P (MAP) Pulse Ox O2 Delivery O2 Flow Rate FiO2 06/07/17 16:32 97.0 78 16 113/62 (79) 98 06/05/17 16:02 Room Air I&O Intake and Output 06/07/17 07:00 Intake Total 1440 ml Balance 1440 ml Intake Oral 1440 ml Current Medications: Meds: Current Medications Acetaminophen (Tylenol) 650 mg PRN Q6HRS PRN PO PAIN / TEMP; Start 05/20/17 at 20:15 Multi-Ingredient Ointment (Analgesic [place]) 1 chelle PRN QID PRN TP MUSCLE PAIN; Start 05/20/17 at 20:15 Al Hydroxide/Mg Hydroxide (Mylanta Plus Xs) 15 ml PRN AFTMEALHC PRN PO DYSPEPSIA; Start 05/20/17 at 20:15 Magnesium Hydroxide (Milk Of Magnesia) 2,400 mg PRN QHS PRN PO CONSTIPATION Last administered on 06/06/17 16:51; Start 05/20/17 at 20:15 Clonazepam (KlonoPIN) 0.5 mg PRN BID PRN PO ANXIETY / AGITATION Last administered on 06/05/17 18:10; Start 05/20/17 at 21:45 Donepezil HCl (Aricept) 10 mg QHS PO Last administered on 06/07/17 19:26; Start 05/20/17 at 22:00 Memantine (Namenda) 10 mg BID PO Last administered on 06/07/17 19:26; Start 05/20/17 at 22:00 Quetiapine Fumarate (SEROquel) 25 mg DAILY PO Last administered on 05/21/17 08:40; Start 05/21/17 at 09:00; Stop 05/21/17 at 18:33; Status DC Quetiapine Fumarate (SEROquel) 50 mg QHS PO Last administered on 05/21/17 19: 59; Start 05/20/17 at 22:00; Stop 05/22/17 at 11:24; Status DC Sertraline HCl (Zoloft) 100 mg DAILY PO Last administered on 05/23/17 07:24; Start 05/21/17 at 09:00; Stop 05/23/17 at 19:32; Status DC Pneumococcal Polyvalent Vaccine (Do NOT chart on this entry -- for MONITORING) 1 each 1X ONCE MC ; Start 05/22/17 at 09:00; Stop 05/22/17 at 09:01; Status DC Influenza Virus Vaccine Quadrival (Fluarix Quad [id number] Syringe) 0.5 ml ONCE ONCE VAX IM Last administered on 05/22/17 10:56; Start 05/22/17 at 09:00; Stop 05/22/17 at 09:01; Status DC Acetaminophen (Tylenol) 650 mg PRN Q6HRS PRN PO PAIN / TEMP; Start 05/21/17 at 05:30; Stop 05/21/17 at 05:34; Status DC Diclofenac Sodium (Voltaren) 75 mg BID PO Last administered on 06/07/17 19:28 ; Start 05/21/17 at 09:00 Lisinopril (Prinivil) 10 mg DAILY PO Last administered on 06/07/17 08:30; Start 05/21/17 at 09:00 Simvastatin (Zocor) 20 mg HS PO Last administered on 06/07/17 19:27; Start at 21:00 Clobetasol Propionate 1 chelle PRN BID PRN TP ITCHING; Start 05/21/17 at 09:00 Pantoprazole Sodium (Protonix) 40 mg DAILYAC PO Last administered on 06/07/17 08:29; Start 05/21/17 at 07:30 Throat Lozenges (Cepacol Sore Throat Lozenge) 1 sara PRN Q2HR PRN PO COUGH; Start 05/21/17 at 05:45 Cyanocobalamin (Vitamin B-12) 1,000 mcg DAILY IM Last administered on 07:41; Start 05/22/17 at 09:00; Stop 05/25/17 at 08:59; Status DC Cyanocobalamin (Vitamin B-12) 1,000 mcg [id number] IM ; Start 06/18/17 at 09:00 Vitamin D (Vitamin D3) 50,000 unit WEEKLY PO Last administered on 06/04/17 08 :05; Start 05/21/17 at 16:00 Quetiapine Fumarate (SEROquel) 25 mg [id number] PO Last administered on 05/26/17 09:44; Start 05/22/17 at 09:00; Stop 05/26/17 at 11:07; Status DC Quetiapine Fumarate (SEROquel) 75 mg QHS PO Last administered on 06/07/17 19: 27; Start 05/22/17 at 21:00 Olanzapine (ZyPREXA ZYDIS) 2.5 mg PRN Q2HR PRN PO PSYCHOSIS/AGITATION Last administered on 06/02/17 19:16; Start 05/22/17 at 19:00 Sertraline HCl (Zoloft) 125 mg DAILY PO Last administered on 06/07/17 08:31; Start 05/24/17 at 09:00; Stop 06/07/17 at 08:56; Status DC Quetiapine Fumarate (SEROquel) 25 mg DAILY@1400 PO Last administered on 14:03; Start 05/26/17 at 14:00 Quetiapine Fumarate (SEROquel) 37.5 mg DAILY PO Last administered on 06/07/17 08:30; Start 05/27/17 at 09:00 Divalproex Sodium (Depakote Sprinkles) 125 mg [id number] PO Last administered on 07:58; Start 06/03/17 at 09:00; Stop 06/05/17 at 11:51; Status DC Divalproex Sodium (Depakote Sprinkles) 250 mg BID92 PO Last administered on 14:03; Start 06/05/17 at 14:00 Sertraline HCl (Zoloft) 100 mg DAILY PO ; Start 06/07/17 at 09:00 Sertraline HCl (Zoloft) 25 mg DAILY PO ; Start 06/07/17 at 09:00 Active Scripts Active Reported Throat Drops (Pectin) 6 Mg Lozenge 6 Mg MM PRN Q4HRS PRN Simvastatin 20 Mg Tablet 20 Mg PO HS Zoloft (Sertraline Hcl) 100 Mg Tablet 100 Mg PO DAILY Seroquel (Quetiapine Fumarate) 50 Mg Tablet 50 Mg PO QHS Seroquel (Quetiapine Fumarate) 25 Mg Tablet 25 Mg PO DAILY Omeprazole 20 Mg Capsule.dr 20 Mg PO DAILY Namenda (Memantine Hcl) 10 Mg Tablet 10 Mg PO BID Lisinopril 10 Mg Tablet 10 Mg PO DAILY Donepezil Hcl 10 Mg Tablet 10 Mg PO QHS Diclofenac Sodium 75 Mg Tablet.dr 75 Mg PO BID Clonazepam 0.5 Mg Tablet 0.5 Mg PO PRN BID PRN Clobetasol Propionate 15 Gm Cream..g. 1 [place] TP PRN BID PRN Tylenol (Acetaminophen) 325 Mg Tablet 650 Mg PO PRN Q6HRS PRN I have reviewed the current psychotropics carefully including drug interactions. Risk benefit ratio favors no change other than as noted in my dictated progress note. Diagnosis: Problems: (1) Encounter for medical screening examination PAM GLEZ MD Jun 07, 2017 21:53
[2017-06-08 05:59] VITALS: BP 139/72
[2017-06-08 07:48] LABS: BASO % 1 % (0-3); EOS # 0.1 x10^3/uL (0.0-0.7); EOS % 2 % (0-3); HEMATOCRIT 40.1 % (36.0-47.0); HEMOGLOBIN 13.7 g/dL (12.0-15.5); LYMPH % 16 % (24-48); MEAN CORPUSCULAR HEMOGLOBIN 30 pg (25-35); MEAN CORPUSCULAR HGB CONC 34 g/dL (31-37); MEAN CORPUSCULAR VOLUME 87 fL (79-100); MONO # 0.4 x10^3/uL (0.0-1.1); MONO % 7 % (0-9); NEUT # 4.5 x10^3uL (1.8-7.7); NEUT % 73 % (31-73); PLATELET COUNT 195 x10^3/uL (140-400); RED BLOOD COUNT 4.61 x10^6/uL (3.50-5.40); RED CELL DISTRIBUTION WIDTH 14.1 % (11.5-14.5); WHITE BLOOD COUNT 6.1 x10^3/uL (4.0-11.0)
[2017-06-08 07:58] LABS: ALBUMIN 3.6 g/dL (3.4-5.0); CALCIUM 8.8 mg/dL (8.5-10.1); GFR 56.2; POTASSIUM 4.4 mmol/L (3.5-5.1); TOTAL BILIRUBIN 0.4 mg/dL (0.2-1.0); TOTAL PROTEIN 7.2 g/dL (6.4-8.2)
[2017-06-08 07:59] LABS: VAL ACID 27 mcg/mL (50-100)
[2017-06-08] MEDS: MEMANTINE 10 MG TABLET. PO SCH ×2 (08:19→20:22)
[2017-06-08] MEDS: PANTOPRAZOLE 40 MG TABLET. PO SCH (08:19)
[2017-06-08] MEDS: DIVALPROEX 125 MG CAP.SPRINK PO SCH ×2 (08:19→13:08)
[2017-06-08] MEDS: QUEtiapine 25 MG TABLET. PO SCH ×2 (08:20→13:08)
[2017-06-08] MEDS: LISINOPRIL 10 MG TABLET PO SCH (08:20)
[2017-06-08] MEDS: SERTRALINE 100 MG TABLET. PO SCH (08:22)
[2017-06-08] MEDS: DICLOFENAC SODIUM 75 MG TABLET.DR PO SCH ×2 (08:22→20:23)
[2017-06-08] MEDS: SERTRALINE 25 MG TABLET. PO SCH (08:22)
[2017-06-08 16:18] VITALS: BP 113/67
--- NOTE | 2017-06-08 20:09 | PDOC ---
Exam Note: Emir Note: Please also refer to the separate dictated note~for this date of service dictated separately.~Patient seen individually. Discussed the patient with Nursing staff reviewed the chart.~Reviewed interim history and current functioning. Reviewed vital signs,~Labs/ Radiology~and current medications noted below. Continue current treatment with the changes noted in the dictated addendum note Assessment: Vital Signs: Vital Signs Date Time Temp Pulse Resp B/P (MAP) Pulse Ox O2 Delivery O2 Flow Rate FiO2 06/08/17 16:18 98.1 68 20 113/67 (82) 97 06/05/17 16:02 Room Air I&O Intake and Output 06/08/17 07:00 Intake Total 1440 ml Balance 1440 ml Intake Oral 1440 ml # Bowel Movements 1 Labs: Laboratory Tests Test 06/08/17 07:21 White Blood Count 6.1 x10^3/uL (4.0-11.0) Red Blood Count 4.61 x10^6/uL (3.50-5.40) Hemoglobin 13.7 g/dL (12.0-15.5) Hematocrit 40.1 % (36.0-47.0) Mean Corpuscular Volume 87 fL (79-100) Mean Corpuscular Hemoglobin 30 pg (25-35) Mean Corpuscular Hemoglobin Concent 34 g/dL (31-37) Red Cell Distribution Width 14.1 % (11.5-14.5) Platelet Count 195 x10^3/uL (140-400) Neutrophils (%) (Auto) 73 % (31-73) Lymphocytes (%) (Auto) 16 % (24-48) L Monocytes (%) (Auto) 7 % (0-9) Eosinophils (%) (Auto) 2 % (0-3) Basophils (%) (Auto) 1 % (0-3) Neutrophils # (Auto) 4.5 x10^3uL (1.8-7.7) Lymphocytes # (Auto) 1.0 x10^3/uL (1.0-4.8) Monocytes # (Auto) 0.4 x10^3/uL (0.0-1.1) Eosinophils # (Auto) 0.1 x10^3/uL (0.0-0.7) Basophils # (Auto) 0.0 x10^3/uL (0.0-0.2) Sodium Level 143 mmol/L (136-145) Potassium Level 4.4 mmol/L (3.5-5.1) Chloride Level 107 mmol/L (98-107) Carbon Dioxide Level 29 mmol/L (21-32) Anion Gap 7 (6-14) Blood Urea Nitrogen 14 mg/dL (7-20) Creatinine 1.0 mg/dL (0.6-1.0) Estimated GFR (Cockcroft-Gault) 56.2 BUN/Creatinine Ratio 14 (6-20) Glucose Level 126 mg/dL (70-99) H Calcium Level 8.8 mg/dL (8.5-10.1) Total Bilirubin 0.4 mg/dL (0.2-1.0) Aspartate Amino Transferase (AST) 18 U/L (15-37) Alanine Aminotransferase (ALT) 27 U/L (14-59) Alkaline Phosphatase 75 U/L (46-116) Total Protein 7.2 g/dL (6.4-8.2) Albumin 3.6 g/dL (3.4-5.0) Albumin/Globulin Ratio 1.0 (1.0-1.7) Valproic Acid Level 27 mcg/mL (50-100) L Valproic Acid Last Dose Date 06/07/17 Valproic Acid Last Dose Time 2100 Current Medications: Meds: Current Medications Acetaminophen (Tylenol) 650 mg PRN Q6HRS PRN PO PAIN / TEMP; Start 05/20/17 at 20:15 Multi-Ingredient Ointment (Analgesic [place]) 1 chelle PRN QID PRN TP MUSCLE PAIN; Start 05/20/17 at 20:15 Al Hydroxide/Mg Hydroxide (Mylanta Plus Xs) 15 ml PRN AFTMEALHC PRN PO DYSPEPSIA; Start 05/20/17 at 20:15 Magnesium Hydroxide (Milk Of Magnesia) 2,400 mg PRN QHS PRN PO CONSTIPATION Last administered on 06/06/17 16:51; Start 05/20/17 at 20:15 Clonazepam (KlonoPIN) 0.5 mg PRN BID PRN PO ANXIETY / AGITATION Last administered on 06/05/17 18:10; Start 05/20/17 at 21:45 Donepezil HCl (Aricept) 10 mg QHS PO Last administered on 06/07/17 19:26; Start 05/20/17 at 22:00 Memantine (Namenda) 10 mg BID PO Last administered on 06/08/17 08:19; Start 05/20/17 at 22:00 Quetiapine Fumarate (SEROquel) 25 mg DAILY PO Last administered on 05/21/17 08:40; Start 05/21/17 at 09:00; Stop 05/21/17 at 18:33; Status DC Quetiapine Fumarate (SEROquel) 50 mg QHS PO Last administered on 05/21/17 19: 59; Start 05/20/17 at 22:00; Stop 05/22/17 at 11:24; Status DC Sertraline HCl (Zoloft) 100 mg DAILY PO Last administered on 05/23/17 07:24; Start 05/21/17 at 09:00; Stop 05/23/17 at 19:32; Status DC Pneumococcal Polyvalent Vaccine (Do NOT chart on this entry -- for MONITORING) 1 each 1X ONCE MC ; Start 05/22/17 at 09:00; Stop 05/22/17 at 09:01; Status DC Influenza Virus Vaccine Quadrival (Fluarix Quad [id number] Syringe) 0.5 ml ONCE ONCE VAX IM Last administered on 05/22/17 10:56; Start 05/22/17 at 09:00; Stop 05/22/17 at 09:01; Status DC Acetaminophen (Tylenol) 650 mg PRN Q6HRS PRN PO PAIN / TEMP; Start 05/21/17 at 05:30; Stop 05/21/17 at 05:34; Status DC Diclofenac Sodium (Voltaren) 75 mg BID PO Last administered on 06/08/17 08:22 ; Start 05/21/17 at 09:00 Lisinopril (Prinivil) 10 mg DAILY PO Last administered on 06/08/17 08:20; Start 05/21/17 at 09:00 Simvastatin (Zocor) 20 mg HS PO Last administered on 06/07/17 19:27; Start at 21:00 Clobetasol Propionate 1 chelle PRN BID PRN TP ITCHING; Start 05/21/17 at 09:00 Pantoprazole Sodium (Protonix) 40 mg DAILYAC PO Last administered on 06/08/17 08:19; Start 05/21/17 at 07:30 Throat Lozenges (Cepacol Sore Throat Lozenge) 1 sara PRN Q2HR PRN PO COUGH; Start 05/21/17 at 05:45 Cyanocobalamin (Vitamin B-12) 1,000 mcg DAILY IM Last administered on 07:41; Start 05/22/17 at 09:00; Stop 05/25/17 at 08:59; Status DC Cyanocobalamin (Vitamin B-12) 1,000 mcg [id number] IM ; Start 06/18/17 at 09:00 Vitamin D (Vitamin D3) 50,000 unit WEEKLY PO Last administered on 06/04/17 08 :05; Start 05/21/17 at 16:00 Quetiapine Fumarate (SEROquel) 25 mg [id number] PO Last administered on 05/26/17 09:44; Start 05/22/17 at 09:00; Stop 05/26/17 at 11:07; Status DC Quetiapine Fumarate (SEROquel) 75 mg QHS PO Last administered on 06/07/17 19: 27; Start 05/22/17 at 21:00 Olanzapine (ZyPREXA ZYDIS) 2.5 mg PRN Q2HR PRN PO PSYCHOSIS/AGITATION Last administered on 06/02/17 19:16; Start 05/22/17 at 19:00 Sertraline HCl (Zoloft) 125 mg DAILY PO Last administered on 06/07/17 08:31; Start 05/24/17 at 09:00; Stop 06/07/17 at 08:56; Status DC Quetiapine Fumarate (SEROquel) 25 mg DAILY@1400 PO Last administered on 13:08; Start 05/26/17 at 14:00 Quetiapine Fumarate (SEROquel) 37.5 mg DAILY PO Last administered on 06/08/17 08:20; Start 05/27/17 at 09:00 Divalproex Sodium (Depakote Sprinkles) 125 mg [id number] PO Last administered on 07:58; Start 06/03/17 at 09:00; Stop 06/05/17 at 11:51; Status DC Divalproex Sodium (Depakote Sprinkles) 250 mg BID92 PO Last administered on 13:08; Start 06/05/17 at 14:00; Stop 06/08/17 at 18:03; Status DC Sertraline HCl (Zoloft) 100 mg DAILY PO Last administered on 06/08/17 08:22; Start 06/07/17 at 09:00 Sertraline HCl (Zoloft) 25 mg DAILY PO Last administered on 06/08/17 08:22; Start 06/07/17 at 09:00 Divalproex Sodium (Depakote Sprinkles) 375 mg BID92 PO ; Start 06/09/17 at 09:00 Active Scripts Active Reported Throat Drops (Pectin) 6 Mg Lozenge 6 Mg MM PRN Q4HRS PRN Simvastatin 20 Mg Tablet 20 Mg PO HS Zoloft (Sertraline Hcl) 100 Mg Tablet 100 Mg PO DAILY Seroquel (Quetiapine Fumarate) 50 Mg Tablet 50 Mg PO QHS Seroquel (Quetiapine Fumarate) 25 Mg Tablet 25 Mg PO DAILY Omeprazole 20 Mg Capsule.dr 20 Mg PO DAILY Namenda (Memantine Hcl) 10 Mg Tablet 10 Mg PO BID Lisinopril 10 Mg Tablet 10 Mg PO DAILY Donepezil Hcl 10 Mg Tablet 10 Mg PO QHS Diclofenac Sodium 75 Mg Tablet.dr 75 Mg PO BID Clonazepam 0.5 Mg Tablet 0.5 Mg PO PRN BID PRN Clobetasol Propionate 15 Gm Cream..g. 1 [place] TP PRN BID PRN Tylenol (Acetaminophen) 325 Mg Tablet 650 Mg PO PRN Q6HRS PRN I have reviewed the current psychotropics carefully including drug interactions. Risk benefit ratio favors no change other than as noted in my dictated progress note. Diagnosis: Problems: (1) Encounter for medical screening examination PAM GLEZ MD Jun 08, 2017 20:09
[2017-06-08] MEDS: QUEtiapine 50 MG TABLET. PO SCH (20:22)
[2017-06-08] MEDS: DONEPEZIL HCL 10 MG TABLET PO SCH (20:22)
[2017-06-08] MEDS: SIMVASTATIN 20 MG TABLET PO SCH (20:22)
--- NOTE | 2017-06-08 23:41 | PN ---
DATE: 06/06/2017 PSYCHIATRIC PROGRESS NOTE This late entry 06/06/2017, covers elements not covered in my initial note of 06/06/2017. I met with the patient the evening of 06/06/2017. Overall, the patient remains confused, somewhat delusional, thought she was in school and said she did not know how to take her medications. No p.r.n.s have been given. REVIEW OF SYSTEMS: No CV, , pulmonary, eye, ENT system symptoms on review. Reliability poor. MENTAL STATUS EXAM: Oriented to herself. Insight, judgment, recent and remote memory, attention, concentration, fund of knowledge poor, consistent with her diagnosis mentioned in my initial note. PLAN: Continue current psychotropics mentioned in my initial note. MAN Mca GLEZ MD DR: NHUNG/anshul JOB#: [id number] / [id number]
--- NOTE | 2017-06-08 23:50 | PN ---
DATE: 06/07/2017 PSYCHIATRIC PROGRESS NOTE This late entry 06/07/2017, covers elements not covered in my initial note 06/07/2017. I met with the patient in the evening of 06/07/2017. She has had no overt aggressive behaviors the previous evening or during the day on 06/07/2017. She has attended some groups, played ball, is part of the groups, was able to cooperate, less frustrated. She has talked about being the only sister in a family with 4 other brothers and some remote memory is still intact. REVIEW OF SYSTEMS: No CV, , pulmonary, eye, ENT system symptoms on review. Reliability poor. MENTAL STATUS EXAM: Oriented to herself. Insight, judgment, recent and remote memory, attention, concentration, fund of knowledge poor, consistent with her diagnosis mentioned in my initial note. PLAN: Continue current psychotropics. Neurology consult with Dr. Tesfaye. We may need further workup of her dementia including a CT head if one has not been done in the past and other neurological workup including EEG and lumbar tap given her early age of dementia, but we will defer to Dr. Tesfaye for further input. MAN Mac GLEZ MD DR: NHUNG/anshul JOB#: [id number] / [id number]
[2017-06-09 05:59] VITALS: BP 115/68
[2017-06-09] MEDS: SERTRALINE 25 MG TABLET. PO SCH (08:13)
[2017-06-09] MEDS: QUEtiapine 25 MG TABLET. PO SCH ×2 (08:13→13:24)
[2017-06-09] MEDS: MEMANTINE 10 MG TABLET. PO SCH ×2 (08:13→19:29)
[2017-06-09] MEDS: SERTRALINE 100 MG TABLET. PO SCH (08:13)
[2017-06-09] MEDS: LISINOPRIL 10 MG TABLET PO SCH (08:14)
[2017-06-09] MEDS: PANTOPRAZOLE 40 MG TABLET. PO SCH (08:14)
[2017-06-09] MEDS: DIVALPROEX 125 MG CAP.SPRINK PO SCH ×2 (08:17→13:24)
[2017-06-09] MEDS: DICLOFENAC SODIUM 75 MG TABLET.DR PO SCH ×2 (08:18→19:35)
[2017-06-09 16:03] VITALS: BP 100/58
[2017-06-09] MEDS: SIMVASTATIN 20 MG TABLET PO SCH (19:29)
[2017-06-09] MEDS: DONEPEZIL HCL 10 MG TABLET PO SCH (19:29)
[2017-06-09] MEDS: QUEtiapine 50 MG TABLET. PO SCH (19:29)
--- NOTE | 2017-06-09 20:06 | PDOC ---
Exam Note: Emir Note: Please also refer to the separate dictated note~for this date of service dictated separately.~Patient seen individually. Discussed the patient with Nursing staff reviewed the chart.~Reviewed interim history and current functioning. Reviewed vital signs,~Labs/ Radiology~and current medications noted below. Continue current treatment with the changes noted in the dictated addendum note Assessment: Vital Signs: Vital Signs Date Time Temp Pulse Resp B/P (MAP) Pulse Ox O2 Delivery O2 Flow Rate FiO2 06/09/17 16:03 97.8 64 18 100/58 (72) 99 06/05/17 16:02 Room Air I&O Intake and Output 06/09/17 07:00 Intake Total 1320 ml Balance 1320 ml Intake Oral 1320 ml Current Medications: Meds: Current Medications Acetaminophen (Tylenol) 650 mg PRN Q6HRS PRN PO PAIN / TEMP; Start 05/20/17 at 20:15 Multi-Ingredient Ointment (Analgesic [place]) 1 chelle PRN QID PRN TP MUSCLE PAIN; Start 05/20/17 at 20:15 Al Hydroxide/Mg Hydroxide (Mylanta Plus Xs) 15 ml PRN AFTMEALHC PRN PO DYSPEPSIA; Start 05/20/17 at 20:15 Magnesium Hydroxide (Milk Of Magnesia) 2,400 mg PRN QHS PRN PO CONSTIPATION Last administered on 06/06/17 16:51; Start 05/20/17 at 20:15 Clonazepam (KlonoPIN) 0.5 mg PRN BID PRN PO ANXIETY / AGITATION Last administered on 06/05/17 18:10; Start 05/20/17 at 21:45 Donepezil HCl (Aricept) 10 mg QHS PO Last administered on 06/09/17 19:29; Start 05/20/17 at 22:00 Memantine (Namenda) 10 mg BID PO Last administered on 06/09/17 19:29; Start 05/20/17 at 22:00 Quetiapine Fumarate (SEROquel) 25 mg DAILY PO Last administered on 05/21/17 08:40; Start 05/21/17 at 09:00; Stop 05/21/17 at 18:33; Status DC Quetiapine Fumarate (SEROquel) 50 mg QHS PO Last administered on 05/21/17 19: 59; Start 05/20/17 at 22:00; Stop 05/22/17 at 11:24; Status DC Sertraline HCl (Zoloft) 100 mg DAILY PO Last administered on 05/23/17 07:24; Start 05/21/17 at 09:00; Stop 05/23/17 at 19:32; Status DC Pneumococcal Polyvalent Vaccine (Do NOT chart on this entry -- for MONITORING) 1 each 1X ONCE MC ; Start 05/22/17 at 09:00; Stop 05/22/17 at 09:01; Status DC Influenza Virus Vaccine Quadrival (Fluarix Quad [id number] Syringe) 0.5 ml ONCE ONCE VAX IM Last administered on 05/22/17 10:56; Start 05/22/17 at 09:00; Stop 05/22/17 at 09:01; Status DC Acetaminophen (Tylenol) 650 mg PRN Q6HRS PRN PO PAIN / TEMP; Start 05/21/17 at 05:30; Stop 05/21/17 at 05:34; Status DC Diclofenac Sodium (Voltaren) 75 mg BID PO Last administered on 06/09/17 19:35 ; Start 05/21/17 at 09:00 Lisinopril (Prinivil) 10 mg DAILY PO Last administered on 06/09/17 08:14; Start 05/21/17 at 09:00 Simvastatin (Zocor) 20 mg HS PO Last administered on 06/09/17 19:29; Start at 21:00 Clobetasol Propionate 1 chelle PRN BID PRN TP ITCHING; Start 05/21/17 at 09:00 Pantoprazole Sodium (Protonix) 40 mg DAILYAC PO Last administered on 06/09/17 08:14; Start 05/21/17 at 07:30 Throat Lozenges (Cepacol Sore Throat Lozenge) 1 sara PRN Q2HR PRN PO COUGH; Start 05/21/17 at 05:45 Cyanocobalamin (Vitamin B-12) 1,000 mcg DAILY IM Last administered on 07:41; Start 05/22/17 at 09:00; Stop 05/25/17 at 08:59; Status DC Cyanocobalamin (Vitamin B-12) 1,000 mcg [id number] IM ; Start 06/18/17 at 09:00 Vitamin D (Vitamin D3) 50,000 unit WEEKLY PO Last administered on 06/04/17 08 :05; Start 05/21/17 at 16:00 Quetiapine Fumarate (SEROquel) 25 mg [id number] PO Last administered on 05/26/17 09:44; Start 05/22/17 at 09:00; Stop 05/26/17 at 11:07; Status DC Quetiapine Fumarate (SEROquel) 75 mg QHS PO Last administered on 06/09/17 19: 29; Start 05/22/17 at 21:00 Olanzapine (ZyPREXA ZYDIS) 2.5 mg PRN Q2HR PRN PO PSYCHOSIS/AGITATION Last administered on 06/09/17 10:18; Start 05/22/17 at 19:00 Sertraline HCl (Zoloft) 125 mg DAILY PO Last administered on 06/07/17 08:31; Start 05/24/17 at 09:00; Stop 06/07/17 at 08:56; Status DC Quetiapine Fumarate (SEROquel) 25 mg DAILY@1400 PO Last administered on 13:24; Start 05/26/17 at 14:00 Quetiapine Fumarate (SEROquel) 37.5 mg DAILY PO Last administered on 06/09/17 08:13; Start 05/27/17 at 09:00 Divalproex Sodium (Depakote Sprinkles) 125 mg [id number] PO Last administered on 07:58; Start 06/03/17 at 09:00; Stop 06/05/17 at 11:51; Status DC Divalproex Sodium (Depakote Sprinkles) 250 mg BID92 PO Last administered on 13:08; Start 06/05/17 at 14:00; Stop 06/08/17 at 18:03; Status DC Sertraline HCl (Zoloft) 100 mg DAILY PO Last administered on 06/09/17 08:13; Start 06/07/17 at 09:00 Sertraline HCl (Zoloft) 25 mg DAILY PO Last administered on 06/09/17 08:13; Start 06/07/17 at 09:00 Divalproex Sodium (Depakote Sprinkles) 375 mg BID92 PO Last administered on t 13:24; Start 06/09/17 at 09:00 Active Scripts Active Reported Throat Drops (Pectin) 6 Mg Lozenge 6 Mg MM PRN Q4HRS PRN Simvastatin 20 Mg Tablet 20 Mg PO HS Zoloft (Sertraline Hcl) 100 Mg Tablet 100 Mg PO DAILY Seroquel (Quetiapine Fumarate) 50 Mg Tablet 50 Mg PO QHS Seroquel (Quetiapine Fumarate) 25 Mg Tablet 25 Mg PO DAILY Omeprazole 20 Mg Capsule.dr 20 Mg PO DAILY Namenda (Memantine Hcl) 10 Mg Tablet 10 Mg PO BID Lisinopril 10 Mg Tablet 10 Mg PO DAILY Donepezil Hcl 10 Mg Tablet 10 Mg PO QHS Diclofenac Sodium 75 Mg Tablet.dr 75 Mg PO BID Clonazepam 0.5 Mg Tablet 0.5 Mg PO PRN BID PRN Clobetasol Propionate 15 Gm Cream..g. 1 [place] TP PRN BID PRN Tylenol (Acetaminophen) 325 Mg Tablet 650 Mg PO PRN Q6HRS PRN I have reviewed the current psychotropics carefully including drug interactions. Risk benefit ratio favors no change other than as noted in my dictated progress note. Diagnosis: Problems: (1) Encounter for medical screening examination PAM GLEZ MD Jun 09, 2017 20:06
[2017-06-10 06:31] VITALS: BP 152/81
--- NOTE | 2017-06-10 07:27 | PN ---
DATE: 06/08/2017 PSYCHIATRIC PROGRESS NOTE This is a late entry for 06/08/2017 covers elements not covered in my initial note of 06/08/2017. SUBJECTIVE: I met with the patient evening of 06/08/2017. The patient has had a good day, gets irritable with another patient who has been yelling out. She had a Neurology consult with Dr. Tesfaye. EEG, CT head have been planned and maybe some lumbar tap studies to workup for dementia. Valproic acid level is 27. REVIEW OF SYSTEMS: No CV, , pulmonary, eye, ENT system symptoms on review. MENTAL STATUS EXAM: Oriented to herself. Insight, judgment, recent and remote memory, attention, concentration, fund of knowledge poor, consistent with her diagnosis mentioned in my initial note. PLAN: Increase Depakote to 375 mg twice a day. Check CBC, CMP, valproic acid level in 3 days. Maintain rest unchanged per initial note. MAN Mac GLEZ MD DR: NHUNG/anshul JOB#: [id number] / [id number]
[2017-06-10] MEDS: QUEtiapine 25 MG TABLET. PO SCH ×2 (08:42→13:23)
[2017-06-10] MEDS: MEMANTINE 10 MG TABLET. PO SCH ×2 (08:42→20:08)
[2017-06-10] MEDS: PANTOPRAZOLE 40 MG TABLET. PO SCH (08:42)
[2017-06-10] MEDS: DIVALPROEX 125 MG CAP.SPRINK PO SCH ×2 (08:42→13:23)
[2017-06-10] MEDS: SERTRALINE 25 MG TABLET. PO SCH (08:43)
[2017-06-10] MEDS: LISINOPRIL 10 MG TABLET PO SCH (08:43)
[2017-06-10] MEDS: SERTRALINE 100 MG TABLET. PO SCH (08:43)
[2017-06-10] MEDS: DICLOFENAC SODIUM 75 MG TABLET.DR PO SCH ×2 (08:47→20:10)
[2017-06-10 15:16] VITALS: BP 101/64
--- NOTE | 2017-06-10 20:06 | PDOC ---
Exam Note: Emir Note: Please also refer to the separate dictated note~for this date of service dictated separately.~Patient seen individually. Discussed the patient with Nursing staff reviewed the chart.~Reviewed interim history and current functioning. Reviewed vital signs,~Labs/ Radiology~and current medications noted below. Continue current treatment with the changes noted in the dictated addendum note Assessment: Vital Signs: Vital Signs Date Time Temp Pulse Resp B/P (MAP) Pulse Ox O2 Delivery O2 Flow Rate FiO2 06/10/17 15:16 97.9 60 18 101/64 (76) 98 06/05/17 16:02 Room Air I&O Intake and Output 06/10/17 07:00 Intake Total 1320 ml Balance 1320 ml Intake Oral 1320 ml Current Medications: Meds: Current Medications Acetaminophen (Tylenol) 650 mg PRN Q6HRS PRN PO PAIN / TEMP; Start 05/20/17 at 20:15 Multi-Ingredient Ointment (Analgesic [place]) 1 chelle PRN QID PRN TP MUSCLE PAIN; Start 05/20/17 at 20:15 Al Hydroxide/Mg Hydroxide (Mylanta Plus Xs) 15 ml PRN AFTMEALHC PRN PO DYSPEPSIA; Start 05/20/17 at 20:15 Magnesium Hydroxide (Milk Of Magnesia) 2,400 mg PRN QHS PRN PO CONSTIPATION Last administered on 06/06/17 16:51; Start 05/20/17 at 20:15 Clonazepam (KlonoPIN) 0.5 mg PRN BID PRN PO ANXIETY / AGITATION Last administered on 06/05/17 18:10; Start 05/20/17 at 21:45 Donepezil HCl (Aricept) 10 mg QHS PO Last administered on 06/09/17 19:29; Start 05/20/17 at 22:00 Memantine (Namenda) 10 mg BID PO Last administered on 06/10/17 08:42; Start 05/20/17 at 22:00 Quetiapine Fumarate (SEROquel) 25 mg DAILY PO Last administered on 05/21/17 08:40; Start 05/21/17 at 09:00; Stop 05/21/17 at 18:33; Status DC Quetiapine Fumarate (SEROquel) 50 mg QHS PO Last administered on 05/21/17 19: 59; Start 05/20/17 at 22:00; Stop 05/22/17 at 11:24; Status DC Sertraline HCl (Zoloft) 100 mg DAILY PO Last administered on 05/23/17 07:24; Start 05/21/17 at 09:00; Stop 05/23/17 at 19:32; Status DC Pneumococcal Polyvalent Vaccine (Do NOT chart on this entry -- for MONITORING) 1 each 1X ONCE MC ; Start 05/22/17 at 09:00; Stop 05/22/17 at 09:01; Status DC Influenza Virus Vaccine Quadrival (Fluarix Quad 8682-3004 Syringe) 0.5 ml ONCE ONCE VAX IM Last administered on 05/22/17 10:56; Start 05/22/17 at 09:00; Stop 05/22/17 at 09:01; Status DC Acetaminophen (Tylenol) 650 mg PRN Q6HRS PRN PO PAIN / TEMP; Start 05/21/17 at 05:30; Stop 05/21/17 at 05:34; Status DC Diclofenac Sodium (Voltaren) 75 mg BID PO Last administered on 06/10/17 08:47 ; Start 05/21/17 at 09:00 Lisinopril (Prinivil) 10 mg DAILY PO Last administered on 06/10/17 08:43; Start 05/21/17 at 09:00 Simvastatin (Zocor) 20 mg HS PO Last administered on 06/09/17 19:29; Start at 21:00 Clobetasol Propionate 1 chelle PRN BID PRN TP ITCHING; Start 05/21/17 at 09:00 Pantoprazole Sodium (Protonix) 40 mg DAILYAC PO Last administered on 06/10/17 08:42; Start 05/21/17 at 07:30 Throat Lozenges (Cepacol Sore Throat Lozenge) 1 sara PRN Q2HR PRN PO COUGH; Start 05/21/17 at 05:45 Cyanocobalamin (Vitamin B-12) 1,000 mcg DAILY IM Last administered on 07:41; Start 05/22/17 at 09:00; Stop 05/25/17 at 08:59; Status DC Cyanocobalamin (Vitamin B-12) 1,000 mcg [id number] IM ; Start 06/18/17 at 09:00 Vitamin D (Vitamin D3) 50,000 unit WEEKLY PO Last administered on 06/04/17 08 :05; Start 05/21/17 at 16:00 Quetiapine Fumarate (SEROquel) 25 mg [id number] PO Last administered on 05/26/17 09:44; Start 05/22/17 at 09:00; Stop 05/26/17 at 11:07; Status DC Quetiapine Fumarate (SEROquel) 75 mg QHS PO Last administered on 06/09/17 19: 29; Start 05/22/17 at 21:00 Olanzapine (ZyPREXA ZYDIS) 2.5 mg PRN Q2HR PRN PO PSYCHOSIS/AGITATION Last administered on 06/09/17 10:18; Start 05/22/17 at 19:00 Sertraline HCl (Zoloft) 125 mg DAILY PO Last administered on 06/07/17 08:31; Start 05/24/17 at 09:00; Stop 06/07/17 at 08:56; Status DC Quetiapine Fumarate (SEROquel) 25 mg DAILY@1400 PO Last administered on 13:23; Start 05/26/17 at 14:00 Quetiapine Fumarate (SEROquel) 37.5 mg DAILY PO Last administered on 06/10/17 08:42; Start 05/27/17 at 09:00 Divalproex Sodium (Depakote Sprinkles) 125 mg BID92 PO Last administered on 07:58; Start 06/03/17 at 09:00; Stop 06/05/17 at 11:51; Status DC Divalproex Sodium (Depakote Sprinkles) 250 mg BID92 PO Last administered on 13:08; Start 06/05/17 at 14:00; Stop 06/08/17 at 18:03; Status DC Sertraline HCl (Zoloft) 100 mg DAILY PO Last administered on 06/10/17 08:43; Start 06/07/17 at 09:00 Sertraline HCl (Zoloft) 25 mg DAILY PO Last administered on 06/10/17 08:43; Start 06/07/17 at 09:00 Divalproex Sodium (Depakote Sprinkles) 375 mg BID92 PO Last administered on t 13:23; Start 06/09/17 at 09:00 Active Scripts Active Reported Throat Drops (Pectin) 6 Mg Lozenge 6 Mg MM PRN Q4HRS PRN Simvastatin 20 Mg Tablet 20 Mg PO HS Zoloft (Sertraline Hcl) 100 Mg Tablet 100 Mg PO DAILY Seroquel (Quetiapine Fumarate) 50 Mg Tablet 50 Mg PO QHS Seroquel (Quetiapine Fumarate) 25 Mg Tablet 25 Mg PO DAILY Omeprazole 20 Mg Capsule.dr 20 Mg PO DAILY Namenda (Memantine Hcl) 10 Mg Tablet 10 Mg PO BID Lisinopril 10 Mg Tablet 10 Mg PO DAILY Donepezil Hcl 10 Mg Tablet 10 Mg PO QHS Diclofenac Sodium 75 Mg Tablet.dr 75 Mg PO BID Clonazepam 0.5 Mg Tablet 0.5 Mg PO PRN BID PRN Clobetasol Propionate 15 Gm Cream..g. 1 [place] TP PRN BID PRN Tylenol (Acetaminophen) 325 Mg Tablet 650 Mg PO PRN Q6HRS PRN I have reviewed the current psychotropics carefully including drug interactions. Risk benefit ratio favors no change other than as noted in my dictated progress note. Diagnosis: Problems: (1) Encounter for medical screening examination PAM GLEZ MD Jun 10, 2017 20:06
[2017-06-10] MEDS: SIMVASTATIN 20 MG TABLET PO SCH (20:08)
[2017-06-10] MEDS: QUEtiapine 50 MG TABLET. PO SCH (20:10)
[2017-06-10] MEDS: DONEPEZIL HCL 10 MG TABLET PO SCH (20:17)
[2017-06-11 06:36] VITALS: BP 122/74
[2017-06-11 07:38] LABS: BASO % 1 % (0-3); EOS # 0.2 x10^3/uL (0.0-0.7); EOS % 3 % (0-3); HEMATOCRIT 40.7 % (36.0-47.0); HEMOGLOBIN 13.9 g/dL (12.0-15.5); LYMPH # 1.1 x10^3/uL (1.0-4.8); LYMPH % 19 % (24-48); MEAN CORPUSCULAR HEMOGLOBIN 30 pg (25-35); MEAN CORPUSCULAR HGB CONC 34 g/dL (31-37); MEAN CORPUSCULAR VOLUME 88 fL (79-100); MONO # 0.5 x10^3/uL (0.0-1.1); MONO % 8 % (0-9); NEUT # 4.3 x10^3uL (1.8-7.7); NEUT % 70 % (31-73); PLATELET COUNT 192 x10^3/uL (140-400); RED BLOOD COUNT 4.65 x10^6/uL (3.50-5.40); WHITE BLOOD COUNT 6.1 x10^3/uL (4.0-11.0)
[2017-06-11] MEDS: DIVALPROEX 125 MG CAP.SPRINK PO SCH ×2 (07:39→12:57)
[2017-06-11] MEDS: MEMANTINE 10 MG TABLET. PO SCH ×2 (07:39→20:18)
[2017-06-11] MEDS: SERTRALINE 100 MG TABLET. PO SCH (07:40)
[2017-06-11] MEDS: SERTRALINE 25 MG TABLET. PO SCH (07:40)
[2017-06-11] MEDS: DICLOFENAC SODIUM 75 MG TABLET.DR PO SCH ×2 (07:40→20:19)
[2017-06-11] MEDS: LISINOPRIL 10 MG TABLET PO SCH (07:41)
[2017-06-11] MEDS: QUEtiapine 25 MG TABLET. PO SCH ×2 (07:41→12:58)
[2017-06-11] MEDS: PANTOPRAZOLE 40 MG TABLET. PO SCH (07:41)
[2017-06-11] MEDS: CHOLECALCIFEROL (VITAMIN D3) 50,000 UNIT CAPSULE PO SCH (07:43)
[2017-06-11 07:52] LABS: ALBUMIN 3.8 g/dL (3.4-5.0); ALK PHOS 76 U/L (46-116); ALT (SGPT) 27 U/L (14-59); ANION GAP 10 (6-14); AST (SGOT) 20 U/L (15-37); BLOOD UREA NITROGEN 17 mg/dL (7-20); BUN/CREATININE RATIO 17 (6-20); CALCIUM 8.9 mg/dL (8.5-10.1); CARBON DIOXIDE 28 mmol/L (21-32); CHLORIDE 106 mmol/L (98-107); GFR 56.2; GLUCOSE 127 mg/dL (70-99); SODIUM 144 mmol/L (136-145); TOTAL BILIRUBIN 0.4 mg/dL (0.2-1.0); TOTAL PROTEIN 7.5 g/dL (6.4-8.2)
[2017-06-11 07:58] LABS: VAL ACID 43 mcg/mL (50-100)
--- NOTE | 2017-06-11 12:10 | PN ---
DATE: 06/09/2017 PSYCHIATRIC PROGRESS NOTE This is a late entry for 06/09/2017 covers elements not covered in my initial note of 06/09/2017. SUBJECTIVE: I met with the patient evening of 06/09/2017. The patient has been wandering, confused, got agitated in the morning, received Zyprexa Zydis at 10:30, was agitated in the day room and Zyprexa was effective. REVIEW OF SYSTEMS: No CV, , pulmonary, eye, ENT system symptoms on review. Reliability poor. MENTAL STATUS EXAM: Oriented to herself. Insight, judgment, recent and remote memory, attention, concentration, fund of knowledge poor, consistent with her diagnosis mentioned in my initial note. PLAN: Continue current psychotropics. Adjust further as clinically indicated psychotropics mentioned in my initial note. MAN Mac GLEZ MD DR: NHUNG/anshul JOB#: [id number] / [id number]
[2017-06-11] MEDS: clonazePAM 0.5 MG TABLET PO PRN (12:57)
[2017-06-11 16:35] VITALS: BP 97/61
[2017-06-11] MEDS: SIMVASTATIN 20 MG TABLET PO SCH (20:18)
[2017-06-11] MEDS: QUEtiapine 50 MG TABLET. PO SCH (20:18)
[2017-06-11] MEDS: DONEPEZIL HCL 10 MG TABLET PO SCH (20:18)
--- NOTE | 2017-06-11 21:16 | PDOC ---
Exam Note: Emir Note: Please also refer to the separate dictated note~for this date of service dictated separately.~Patient seen individually. Discussed the patient with Nursing staff reviewed the chart.~Reviewed interim history and current functioning. Reviewed vital signs,~Labs/ Radiology~and current medications noted below. Continue current treatment with the changes noted in the dictated addendum note Assessment: Vital Signs: Vital Signs Date Time Temp Pulse Resp B/P (MAP) Pulse Ox O2 Delivery O2 Flow Rate FiO2 06/11/17 16:35 97.6 80 20 97/61 (73) 95 Room Air I&O Intake and Output 06/11/17 07:00 Intake Total 1320 ml Balance 1320 ml Intake Oral 1320 ml Labs: Laboratory Tests Test 06/11/17 07:22 White Blood Count 6.1 x10^3/uL (4.0-11.0) Red Blood Count 4.65 x10^6/uL (3.50-5.40) Hemoglobin 13.9 g/dL (12.0-15.5) Hematocrit 40.7 % (36.0-47.0) Mean Corpuscular Volume 88 fL (79-100) Mean Corpuscular Hemoglobin 30 pg (25-35) Mean Corpuscular Hemoglobin Concent 34 g/dL (31-37) Red Cell Distribution Width 14.0 % (11.5-14.5) Platelet Count 192 x10^3/uL (140-400) Neutrophils (%) (Auto) 70 % (31-73) Lymphocytes (%) (Auto) 19 % (24-48) L Monocytes (%) (Auto) 8 % (0-9) Eosinophils (%) (Auto) 3 % (0-3) Basophils (%) (Auto) 1 % (0-3) Neutrophils # (Auto) 4.3 x10^3uL (1.8-7.7) Lymphocytes # (Auto) 1.1 x10^3/uL (1.0-4.8) Monocytes # (Auto) 0.5 x10^3/uL (0.0-1.1) Eosinophils # (Auto) 0.2 x10^3/uL (0.0-0.7) Basophils # (Auto) 0.0 x10^3/uL (0.0-0.2) Sodium Level 144 mmol/L (136-145) Potassium Level 4.0 mmol/L (3.5-5.1) Chloride Level 106 mmol/L (98-107) Carbon Dioxide Level 28 mmol/L (21-32) Anion Gap 10 (6-14) Blood Urea Nitrogen 17 mg/dL (7-20) Creatinine 1.0 mg/dL (0.6-1.0) Estimated GFR (Cockcroft-Gault) 56.2 BUN/Creatinine Ratio 17 (6-20) Glucose Level 127 mg/dL (70-99) H Calcium Level 8.9 mg/dL (8.5-10.1) Total Bilirubin 0.4 mg/dL (0.2-1.0) Aspartate Amino Transferase (AST) 20 U/L (15-37) Alanine Aminotransferase (ALT) 27 U/L (14-59) Alkaline Phosphatase 76 U/L (46-116) Total Protein 7.5 g/dL (6.4-8.2) Albumin 3.8 g/dL (3.4-5.0) Albumin/Globulin Ratio 1.0 (1.0-1.7) Valproic Acid Level 43 mcg/mL (50-100) L Valproic Acid Last Dose Date 06/10/17 Valproic Acid Last Dose Time 1400 Current Medications: Meds: Current Medications Acetaminophen (Tylenol) 650 mg PRN Q6HRS PRN PO PAIN / TEMP; Start 05/20/17 at 20:15 Multi-Ingredient Ointment (Analgesic [place]) 1 chelle PRN QID PRN TP MUSCLE PAIN; Start 05/20/17 at 20:15 Al Hydroxide/Mg Hydroxide (Mylanta Plus Xs) 15 ml PRN AFTMEALHC PRN PO DYSPEPSIA; Start 05/20/17 at 20:15 Magnesium Hydroxide (Milk Of Magnesia) 2,400 mg PRN QHS PRN PO CONSTIPATION Last administered on 06/06/17 16:51; Start 05/20/17 at 20:15 Clonazepam (KlonoPIN) 0.5 mg PRN BID PRN PO ANXIETY / AGITATION Last administered on 06/11/17 12:57; Start 05/20/17 at 21:45 Donepezil HCl (Aricept) 10 mg QHS PO Last administered on 06/11/17 20:18; Start 05/20/17 at 22:00 Memantine (Namenda) 10 mg BID PO Last administered on 06/11/17 20:18; Start 05/20/17 at 22:00 Quetiapine Fumarate (SEROquel) 25 mg DAILY PO Last administered on 05/21/17 08:40; Start 05/21/17 at 09:00; Stop 05/21/17 at 18:33; Status DC Quetiapine Fumarate (SEROquel) 50 mg QHS PO Last administered on 05/21/17 19: 59; Start 05/20/17 at 22:00; Stop 05/22/17 at 11:24; Status DC Sertraline HCl (Zoloft) 100 mg DAILY PO Last administered on 05/23/17 07:24; Start 05/21/17 at 09:00; Stop 05/23/17 at 19:32; Status DC Pneumococcal Polyvalent Vaccine (Do NOT chart on this entry -- for MONITORING) 1 each 1X ONCE MC ; Start 05/22/17 at 09:00; Stop 05/22/17 at 09:01; Status DC Influenza Virus Vaccine Quadrival (Fluarix Quad [id number] Syringe) 0.5 ml ONCE ONCE VAX IM Last administered on 05/22/17 10:56; Start 05/22/17 at 09:00; Stop 05/22/17 at 09:01; Status DC Acetaminophen (Tylenol) 650 mg PRN Q6HRS PRN PO PAIN / TEMP; Start 05/21/17 at 05:30; Stop 05/21/17 at 05:34; Status DC Diclofenac Sodium (Voltaren) 75 mg BID PO Last administered on 06/11/17 20:19 ; Start 05/21/17 at 09:00 Lisinopril (Prinivil) 10 mg DAILY PO Last administered on 06/11/17 07:41; Start 05/21/17 at 09:00 Simvastatin (Zocor) 20 mg HS PO Last administered on 06/11/17 20:18; Start at 21:00 Clobetasol Propionate 1 chelle PRN BID PRN TP ITCHING; Start 05/21/17 at 09:00 Pantoprazole Sodium (Protonix) 40 mg DAILYAC PO Last administered on 06/11/17 07:41; Start 05/21/17 at 07:30 Throat Lozenges (Cepacol Sore Throat Lozenge) 1 sara PRN Q2HR PRN PO COUGH; Start 05/21/17 at 05:45 Cyanocobalamin (Vitamin B-12) 1,000 mcg DAILY IM Last administered on 07:41; Start 05/22/17 at 09:00; Stop 05/25/17 at 08:59; Status DC Cyanocobalamin (Vitamin B-12) 1,000 mcg [id number] IM ; Start 06/18/17 at 09:00 Vitamin D (Vitamin D3) 50,000 unit WEEKLY PO Last administered on 06/11/17 07: 43; Start 05/21/17 at 16:00 Quetiapine Fumarate (SEROquel) 25 mg [id number] PO Last administered on 05/26/17 09:44; Start 05/22/17 at 09:00; Stop 05/26/17 at 11:07; Status DC Quetiapine Fumarate (SEROquel) 75 mg QHS PO Last administered on 06/11/17 20: 18; Start 05/22/17 at 21:00 Olanzapine (ZyPREXA ZYDIS) 2.5 mg PRN Q2HR PRN PO PSYCHOSIS/AGITATION Last administered on 06/09/17 10:18; Start 05/22/17 at 19:00 Sertraline HCl (Zoloft) 125 mg DAILY PO Last administered on 06/07/17 08:31; Start 05/24/17 at 09:00; Stop 06/07/17 at 08:56; Status DC Quetiapine Fumarate (SEROquel) 25 mg DAILY@1400 PO Last administered on 12:58; Start 05/26/17 at 14:00 Quetiapine Fumarate (SEROquel) 37.5 mg DAILY PO Last administered on 06/11/17 07:41; Start 05/27/17 at 09:00 Divalproex Sodium (Depakote Sprinkles) 125 mg BID92 PO Last administered on 07:58; Start 06/03/17 at 09:00; Stop 06/05/17 at 11:51; Status DC Divalproex Sodium (Depakote Sprinkles) 250 mg BID92 PO Last administered on 13:08; Start 06/05/17 at 14:00; Stop 06/08/17 at 18:03; Status DC Sertraline HCl (Zoloft) 100 mg DAILY PO Last administered on 06/11/17 07:40; Start 06/07/17 at 09:00 Sertraline HCl (Zoloft) 25 mg DAILY PO Last administered on 06/11/17 07:40; Start 06/07/17 at 09:00 Divalproex Sodium (Depakote Sprinkles) 375 mg BID92 PO Last administered on 12:57; Start 06/09/17 at 09:00; Stop 06/11/17 at 18:42; Status DC Divalproex Sodium (Depakote Sprinkles) 500 mg BID92 PO ; Start 06/12/17 at 09:00 Active Scripts Active Reported Throat Drops (Pectin) 6 Mg Lozenge 6 Mg MM PRN Q4HRS PRN Simvastatin 20 Mg Tablet 20 Mg PO HS Zoloft (Sertraline Hcl) 100 Mg Tablet 100 Mg PO DAILY Seroquel (Quetiapine Fumarate) 50 Mg Tablet 50 Mg PO QHS Seroquel (Quetiapine Fumarate) 25 Mg Tablet 25 Mg PO DAILY Omeprazole 20 Mg Capsule.dr 20 Mg PO DAILY Namenda (Memantine Hcl) 10 Mg Tablet 10 Mg PO BID Lisinopril 10 Mg Tablet 10 Mg PO DAILY Donepezil Hcl 10 Mg Tablet 10 Mg PO QHS Diclofenac Sodium 75 Mg Tablet.dr 75 Mg PO BID Clonazepam 0.5 Mg Tablet 0.5 Mg PO PRN BID PRN Clobetasol Propionate 15 Gm Cream..g. 1 [place] TP PRN BID PRN Tylenol (Acetaminophen) 325 Mg Tablet 650 Mg PO PRN Q6HRS PRN I have reviewed the current psychotropics carefully including drug interactions. Risk benefit ratio favors no change other than as noted in my dictated progress note. Diagnosis: Problems: (1) Encounter for medical screening examination PAM GLEZ MD Jun 11, 2017 21:16
[2017-06-12 05:59] VITALS: BP 136/79
--- NOTE | 2017-06-12 07:19 | PN ---
DATE: 06/10/2017 This late entry 06/10/2017 covers elements not covered in my initial note 06/10/2017. Met with the patient in the evening of 06/10/2017. She completed an EEG. Rest of the workup is awaited per Dr. Tesfaye. Remains confused, ambulates walks around the unit, oblivious of where she is. REVIEW OF SYSTEMS: No CV, , pulmonary, eye, ENT system symptoms on review. Reliability poor. MENTAL STATUS EXAM: Oriented to herself. Insight, judgment, recent and remote memory, attention, concentration, fund of knowledge poor, consistent with her diagnosis mentioned in my initial note. PLAN: Continue current psychotropics including the increased Depakote with repeat labs level on 06/11/2017. Adjust further as clinically indicated. MAN Mac GLEZ MD DR: NHUNG/anshul JOB#: [id number] / [id number]
[2017-06-12] MEDS: DICLOFENAC SODIUM 75 MG TABLET.DR PO SCH ×2 (10:03→19:40)
[2017-06-12] MEDS: SERTRALINE 25 MG TABLET. PO SCH (10:03)
[2017-06-12] MEDS: DIVALPROEX 125 MG CAP.SPRINK PO SCH ×2 (10:03→13:08)
[2017-06-12] MEDS: SERTRALINE 100 MG TABLET. PO SCH (10:03)
[2017-06-12] MEDS: PANTOPRAZOLE 40 MG TABLET. PO SCH (10:04)
[2017-06-12] MEDS: LISINOPRIL 10 MG TABLET PO SCH (10:04)
[2017-06-12] MEDS: MEMANTINE 10 MG TABLET. PO SCH ×2 (10:05→19:39)
[2017-06-12] MEDS: QUEtiapine 25 MG TABLET. PO SCH ×2 (10:05→13:08)
[2017-06-12 16:37] VITALS: BP 123/68
[2017-06-12] MEDS: DONEPEZIL HCL 10 MG TABLET PO SCH (19:39)
[2017-06-12] MEDS: SIMVASTATIN 20 MG TABLET PO SCH (19:39)
[2017-06-12] MEDS: QUEtiapine 50 MG TABLET. PO SCH (19:39)
--- NOTE | 2017-06-12 20:01 | PDOC ---
Exam Note: Emir Note: Please also refer to the separate dictated note~for this date of service dictated separately.~Patient seen individually. Discussed the patient with Nursing staff reviewed the chart.~Reviewed interim history and current functioning. Reviewed vital signs,~Labs/ Radiology~and current medications noted below. Continue current treatment with the changes noted in the dictated addendum note Assessment: Vital Signs: Vital Signs Date Time Temp Pulse Resp B/P (MAP) Pulse Ox O2 Delivery O2 Flow Rate FiO2 06/12/17 16:37 97.7 69 18 123/68 (86) 95 06/12/17 05:59 Room Air I&O Intake and Output 06/12/17 07:00 Intake Total 1560 ml Balance 1560 ml Intake Oral 1560 ml Current Medications: Meds: Current Medications Acetaminophen (Tylenol) 650 mg PRN Q6HRS PRN PO PAIN / TEMP; Start 05/20/17 at 20:15 Multi-Ingredient Ointment (Analgesic [place]) 1 chelle PRN QID PRN TP MUSCLE PAIN; Start 05/20/17 at 20:15 Al Hydroxide/Mg Hydroxide (Mylanta Plus Xs) 15 ml PRN AFTMEALHC PRN PO DYSPEPSIA; Start 05/20/17 at 20:15 Magnesium Hydroxide (Milk Of Magnesia) 2,400 mg PRN QHS PRN PO CONSTIPATION Last administered on 06/06/17 16:51; Start 05/20/17 at 20:15 Clonazepam (KlonoPIN) 0.5 mg PRN BID PRN PO ANXIETY / AGITATION Last administered on 06/11/17 12:57; Start 05/20/17 at 21:45 Donepezil HCl (Aricept) 10 mg QHS PO Last administered on 06/12/17 19:39; Start 05/20/17 at 22:00 Memantine (Namenda) 10 mg BID PO Last administered on 06/12/17 19:39; Start 05/20/17 at 22:00 Quetiapine Fumarate (SEROquel) 25 mg DAILY PO Last administered on 05/21/17 08:40; Start 05/21/17 at 09:00; Stop 05/21/17 at 18:33; Status DC Quetiapine Fumarate (SEROquel) 50 mg QHS PO Last administered on 05/21/17 19: 59; Start 05/20/17 at 22:00; Stop 05/22/17 at 11:24; Status DC Sertraline HCl (Zoloft) 100 mg DAILY PO Last administered on 05/23/17 07:24; Start 05/21/17 at 09:00; Stop 05/23/17 at 19:32; Status DC Pneumococcal Polyvalent Vaccine (Do NOT chart on this entry -- for MONITORING) 1 each 1X ONCE MC ; Start 05/22/17 at 09:00; Stop 05/22/17 at 09:01; Status DC Influenza Virus Vaccine Quadrival (Fluarix Quad [id number] Syringe) 0.5 ml ONCE ONCE VAX IM Last administered on 05/22/17 10:56; Start 05/22/17 at 09:00; Stop 05/22/17 at 09:01; Status DC Acetaminophen (Tylenol) 650 mg PRN Q6HRS PRN PO PAIN / TEMP; Start 05/21/17 at 05:30; Stop 05/21/17 at 05:34; Status DC Diclofenac Sodium (Voltaren) 75 mg BID PO Last administered on 06/12/17 19:40 ; Start 05/21/17 at 09:00 Lisinopril (Prinivil) 10 mg DAILY PO Last administered on 06/12/17 10:04; Start 05/21/17 at 09:00 Simvastatin (Zocor) 20 mg HS PO Last administered on 06/12/17 19:39; Start at 21:00 Clobetasol Propionate 1 chelle PRN BID PRN TP ITCHING; Start 05/21/17 at 09:00 Pantoprazole Sodium (Protonix) 40 mg DAILYAC PO Last administered on 06/12/17 10:04; Start 05/21/17 at 07:30 Throat Lozenges (Cepacol Sore Throat Lozenge) 1 sara PRN Q2HR PRN PO COUGH; Start 05/21/17 at 05:45 Cyanocobalamin (Vitamin B-12) 1,000 mcg DAILY IM Last administered on 07:41; Start 05/22/17 at 09:00; Stop 05/25/17 at 08:59; Status DC Cyanocobalamin (Vitamin B-12) 1,000 mcg [id number] IM ; Start 06/18/17 at 09:00 Vitamin D (Vitamin D3) 50,000 unit WEEKLY PO Last administered on 06/11/17 07: 43; Start 05/21/17 at 16:00 Quetiapine Fumarate (SEROquel) 25 mg [id number] PO Last administered on 05/26/17 09:44; Start 05/22/17 at 09:00; Stop 05/26/17 at 11:07; Status DC Quetiapine Fumarate (SEROquel) 75 mg QHS PO Last administered on 06/12/17 19: 39; Start 05/22/17 at 21:00 Olanzapine (ZyPREXA ZYDIS) 2.5 mg PRN Q2HR PRN PO PSYCHOSIS/AGITATION Last administered on 06/12/17 13:09; Start 05/22/17 at 19:00 Sertraline HCl (Zoloft) 125 mg DAILY PO Last administered on 06/07/17 08:31; Start 05/24/17 at 09:00; Stop 06/07/17 at 08:56; Status DC Quetiapine Fumarate (SEROquel) 25 mg DAILY@1400 PO Last administered on 13:08; Start 05/26/17 at 14:00; Stop 06/12/17 at 18:04; Status DC Quetiapine Fumarate (SEROquel) 37.5 mg DAILY PO Last administered on 06/12/17 10:05; Start 05/27/17 at 09:00 Divalproex Sodium (Depakote Sprinkles) 125 mg BID92 PO Last administered on 07:58; Start 06/03/17 at 09:00; Stop 06/05/17 at 11:51; Status DC Divalproex Sodium (Depakote Sprinkles) 250 mg BID92 PO Last administered on 13:08; Start 06/05/17 at 14:00; Stop 06/08/17 at 18:03; Status DC Sertraline HCl (Zoloft) 100 mg DAILY PO Last administered on 06/12/17 10:03; Start 06/07/17 at 09:00 Sertraline HCl (Zoloft) 25 mg DAILY PO Last administered on 06/12/17 10:03; Start 06/07/17 at 09:00 Divalproex Sodium (Depakote Sprinkles) 375 mg BID92 PO Last administered on 12:57; Start 06/09/17 at 09:00; Stop 06/11/17 at 18:42; Status DC Divalproex Sodium (Depakote Sprinkles) 500 mg BID92 PO Last administered on 13:08; Start 06/12/17 at 09:00 Quetiapine Fumarate (SEROquel) 25 mg DAILY@1200 PO ; Start 06/13/17 at 12:00 Active Scripts Active Reported Throat Drops (Pectin) 6 Mg Lozenge 6 Mg MM PRN Q4HRS PRN Simvastatin 20 Mg Tablet 20 Mg PO HS Zoloft (Sertraline Hcl) 100 Mg Tablet 100 Mg PO DAILY Seroquel (Quetiapine Fumarate) 50 Mg Tablet 50 Mg PO QHS Seroquel (Quetiapine Fumarate) 25 Mg Tablet 25 Mg PO DAILY Omeprazole 20 Mg Capsule.dr 20 Mg PO DAILY Namenda (Memantine Hcl) 10 Mg Tablet 10 Mg PO BID Lisinopril 10 Mg Tablet 10 Mg PO DAILY Donepezil Hcl 10 Mg Tablet 10 Mg PO QHS Diclofenac Sodium 75 Mg Tablet.dr 75 Mg PO BID Clonazepam 0.5 Mg Tablet 0.5 Mg PO PRN BID PRN Clobetasol Propionate 15 Gm Cream..g. 1 [place] TP PRN BID PRN Tylenol (Acetaminophen) 325 Mg Tablet 650 Mg PO PRN Q6HRS PRN I have reviewed the current psychotropics carefully including drug interactions. Risk benefit ratio favors no change other than as noted in my dictated progress note. Diagnosis: Problems: (1) Encounter for medical screening examination PAM GLEZ MD Jun 12, 2017 20:01
--- NOTE | 2017-06-13 02:34 | PN ---
DATE: 06/11/2017 This is a late entry, covers the elements not covered in my initial note, 06/11/2017. SUBJECTIVE: I met with the patient evening of 06/11/2017. The patient was agitated after lunch, received Klonopin, then had a nap, and did much better after that. She remains disorganized. REVIEW OF SYSTEMS: No CV, , pulmonary, eye, ENT system symptoms on review. MENTAL STATUS EXAM: Oriented to herself. Insight, judgment, recent and remote memory, attention, concentration, fund of knowledge poor, consistent with her diagnosis, wandering up and down the hallway into others rooms, oblivious the way she is. LABORATORY DATA: Reviewed. IMPRESSION: Unchanged from initial note. PLAN: Increase Depakote Sprinkles from 375 mg b.i.d. to 500 mg b.i.d. Check CBC, CMP, valproic acid level in 3 days since the current level on 375 mg b.i.d. is 43 subtherapeutic. Rest of the psychotropics will remain unchanged per initial note. MAN Mac GLEZ MD DR: NHUNG/anshul JOB#: [id number] / [id number]
[2017-06-13 05:53] VITALS: BP 136/80
[2017-06-13] MEDS: QUEtiapine 25 MG TABLET. PO SCH ×2 (07:34→13:40)
[2017-06-13] MEDS: DICLOFENAC SODIUM 75 MG TABLET.DR PO SCH ×2 (07:34→19:28)
[2017-06-13] MEDS: SERTRALINE 25 MG TABLET. PO SCH (07:35)
[2017-06-13] MEDS: DIVALPROEX 125 MG CAP.SPRINK PO SCH ×2 (07:35→13:36)
[2017-06-13] MEDS: MEMANTINE 10 MG TABLET. PO SCH ×2 (07:35→19:27)
[2017-06-13] MEDS: PANTOPRAZOLE 40 MG TABLET. PO SCH (07:35)
[2017-06-13] MEDS: SERTRALINE 100 MG TABLET. PO SCH (07:35)
[2017-06-13] MEDS: LISINOPRIL 10 MG TABLET PO SCH (07:35)
[2017-06-13] MEDS ORDERED: BENZ1LOZ48 MM (11:08)
[2017-06-13] MEDS ORDERED: CHOL500021 PO (11:10)
[2017-06-13] MEDS ORDERED: CYAN10002 IM (11:12)
[2017-06-13] MEDS ORDERED: MAG355OR12 PO (11:14)
[2017-06-13] MEDS ORDERED: DIVA125C PO (11:14)
[2017-06-13] MEDS ORDERED: MAGN2400 PO (11:18)
[2017-06-13] MEDS ORDERED: MENT113G6 TP (11:23)
[2017-06-13] MEDS ORDERED: QUET25TA5 PO (11:25)
[2017-06-13 16:11] VITALS: BP 116/67
[2017-06-13] MEDS: DONEPEZIL HCL 10 MG TABLET PO SCH (19:27)
[2017-06-13] MEDS: SIMVASTATIN 20 MG TABLET PO SCH (19:27)
[2017-06-13] MEDS: QUEtiapine 100 MG TABLET. PO SCH (19:35)
--- NOTE | 2017-06-13 19:58 | PDOC ---
Exam Note: Emir Note: Please also refer to the separate dictated note~for this date of service dictated separately.~Patient seen individually. Discussed the patient with Nursing staff reviewed the chart.~Reviewed interim history and current functioning. Reviewed vital signs,~Labs/ Radiology~and current medications noted below. Continue current treatment with the changes noted in the dictated addendum note Assessment: Vital Signs: Vital Signs Date Time Temp Pulse Resp B/P (MAP) Pulse Ox O2 Delivery O2 Flow Rate FiO2 06/13/17 16:11 97.3 70 18 116/67 (83) 97 06/12/17 05:59 Room Air I&O Intake and Output 06/13/17 07:00 Intake Total 1320 ml Balance 1320 ml Intake Oral 1320 ml Current Medications: Meds: Current Medications Acetaminophen (Tylenol) 650 mg PRN Q6HRS PRN PO PAIN / TEMP; Start 05/20/17 at 20:15 Multi-Ingredient Ointment (Analgesic [place]) 1 chelle PRN QID PRN TP MUSCLE PAIN; Start 05/20/17 at 20:15 Al Hydroxide/Mg Hydroxide (Mylanta Plus Xs) 15 ml PRN AFTMEALHC PRN PO DYSPEPSIA; Start 05/20/17 at 20:15 Magnesium Hydroxide (Milk Of Magnesia) 2,400 mg PRN QHS PRN PO CONSTIPATION Last administered on 06/06/17 16:51; Start 05/20/17 at 20:15 Clonazepam (KlonoPIN) 0.5 mg PRN BID PRN PO ANXIETY / AGITATION Last administered on 06/11/17 12:57; Start 05/20/17 at 21:45 Donepezil HCl (Aricept) 10 mg QHS PO Last administered on 06/13/17 19:27; Start 05/20/17 at 22:00 Memantine (Namenda) 10 mg BID PO Last administered on 06/13/17 19:27; Start 05/20/17 at 22:00 Quetiapine Fumarate (SEROquel) 25 mg DAILY PO Last administered on 05/21/17 08:40; Start 05/21/17 at 09:00; Stop 05/21/17 at 18:33; Status DC Quetiapine Fumarate (SEROquel) 50 mg QHS PO Last administered on 05/21/17 19: 59; Start 05/20/17 at 22:00; Stop 05/22/17 at 11:24; Status DC Sertraline HCl (Zoloft) 100 mg DAILY PO Last administered on 05/23/17 07:24; Start 05/21/17 at 09:00; Stop 05/23/17 at 19:32; Status DC Pneumococcal Polyvalent Vaccine (Do NOT chart on this entry -- for MONITORING) 1 each 1X ONCE MC ; Start 05/22/17 at 09:00; Stop 05/22/17 at 09:01; Status DC Influenza Virus Vaccine Quadrival (Fluarix Quad [id number] Syringe) 0.5 ml ONCE ONCE VAX IM Last administered on 05/22/17 10:56; Start 05/22/17 at 09:00; Stop 05/22/17 at 09:01; Status DC Acetaminophen (Tylenol) 650 mg PRN Q6HRS PRN PO PAIN / TEMP; Start 05/21/17 at 05:30; Stop 05/21/17 at 05:34; Status DC Diclofenac Sodium (Voltaren) 75 mg BID PO Last administered on 06/13/17 19:28 ; Start 05/21/17 at 09:00 Lisinopril (Prinivil) 10 mg DAILY PO Last administered on 06/13/17 07:35; Start 05/21/17 at 09:00 Simvastatin (Zocor) 20 mg HS PO Last administered on 06/13/17 19:27; Start at 21:00 Clobetasol Propionate 1 chelle PRN BID PRN TP ITCHING; Start 05/21/17 at 09:00 Pantoprazole Sodium (Protonix) 40 mg DAILYAC PO Last administered on 06/13/17 07:35; Start 05/21/17 at 07:30 Throat Lozenges (Cepacol Sore Throat Lozenge) 1 sara PRN Q2HR PRN PO COUGH; Start 05/21/17 at 05:45 Cyanocobalamin (Vitamin B-12) 1,000 mcg DAILY IM Last administered on 07:41; Start 05/22/17 at 09:00; Stop 05/25/17 at 08:59; Status DC Cyanocobalamin (Vitamin B-12) 1,000 mcg [id number] IM ; Start 06/18/17 at 09:00 Vitamin D (Vitamin D3) 50,000 unit WEEKLY PO Last administered on 06/11/17 07: 43; Start 05/21/17 at 16:00 Quetiapine Fumarate (SEROquel) 25 mg [id number] PO Last administered on 05/26/17 09:44; Start 05/22/17 at 09:00; Stop 05/26/17 at 11:07; Status DC Quetiapine Fumarate (SEROquel) 75 mg QHS PO Last administered on 06/12/17 19: 39; Start 05/22/17 at 21:00; Stop 06/13/17 at 18:17; Status DC Olanzapine (ZyPREXA ZYDIS) 2.5 mg PRN Q2HR PRN PO PSYCHOSIS/AGITATION Last administered on 06/12/17 13:09; Start 05/22/17 at 19:00 Sertraline HCl (Zoloft) 125 mg DAILY PO Last administered on 06/07/17 08:31; Start 05/24/17 at 09:00; Stop 06/07/17 at 08:56; Status DC Quetiapine Fumarate (SEROquel) 25 mg DAILY@1400 PO Last administered on 13:08; Start 05/26/17 at 14:00; Stop 06/12/17 at 18:04; Status DC Quetiapine Fumarate (SEROquel) 37.5 mg DAILY PO Last administered on 06/13/17 07:34; Start 05/27/17 at 09:00 Divalproex Sodium (Depakote Sprinkles) 125 mg [id number] PO Last administered on 07:58; Start 06/03/17 at 09:00; Stop 06/05/17 at 11:51; Status DC Divalproex Sodium (Depakote Sprinkles) 250 mg [id number] PO Last administered on 13:08; Start 06/05/17 at 14:00; Stop 06/08/17 at 18:03; Status DC Sertraline HCl (Zoloft) 100 mg DAILY PO Last administered on 06/13/17 07:35; Start 06/07/17 at 09:00 Sertraline HCl (Zoloft) 25 mg DAILY PO Last administered on 06/13/17 07:35; Start 06/07/17 at 09:00 Divalproex Sodium (Depakote Sprinkles) 375 mg [id number] PO Last administered on 12:57; Start 06/09/17 at 09:00; Stop 06/11/17 at 18:42; Status DC Divalproex Sodium (Depakote Sprinkles) 500 mg BID92 PO Last administered on 13:36; Start 06/12/17 at 09:00 Quetiapine Fumarate (SEROquel) 25 mg DAILY@1200 PO Last administered on 13:40; Start 06/13/17 at 12:00 Quetiapine Fumarate (SEROquel) 100 mg QHS PO Last administered on 06/13/17 19: 35; Start 06/13/17 at 21:00 Active Scripts Active Reported Seroquel (Quetiapine Fumarate) 25 Mg Tablet 37.5 Tab PO DAILY [place] (Menthol) 113 Gm Gel..gram. 1 Chelle TP PRN QID PRN Milk Of Magnesia (Magnesium Hydroxide) 2,400 Mg/10 Ml Oral.susp 2,400 Mg PO PRN QHS PRN Maalox Maximum Strength Susp (Mag Hydrox/Al Hydrox/Simeth) 355 Ml Oral.susp 15 Ml PO PRN AFTMEALHC PRN Depakote Sprinkle (Divalproex Sodium) 125 Mg Cap.sprink 500 Mg PO BID92 Cyanocobalamin Injection (Cyanocobalamin (Vitamin B-12)) 1,000 Mcg/1 Ml Vial 1, 000 Mcg IJ D25ITER D3-50 (Cholecalciferol (Vitamin D3)) 50,000 Unit Capsule 50,000 Unit PO WEEKLY Cepacol Sore Throat Lozenge (Benzocaine/Menthol) 1 Each Lozenge 1 Each MM PRN Q2HR PRN Throat Drops (Pectin) 6 Mg Lozenge 6 Mg MM PRN Q4HRS PRN Simvastatin 20 Mg Tablet 20 Mg PO HS Zoloft (Sertraline Hcl) 100 Mg Tablet 100 Mg PO DAILY Seroquel (Quetiapine Fumarate) 50 Mg Tablet 50 Mg PO QHS Seroquel (Quetiapine Fumarate) 25 Mg Tablet 25 Mg PO DAILY Omeprazole 20 Mg Capsule.dr 20 Mg PO DAILY Namenda (Memantine Hcl) 10 Mg Tablet 10 Mg PO BID Lisinopril 10 Mg Tablet 10 Mg PO DAILY Donepezil Hcl 10 Mg Tablet 10 Mg PO QHS Diclofenac Sodium 75 Mg Tablet.dr 75 Mg PO BID Clonazepam 0.5 Mg Tablet 0.5 Mg PO PRN BID PRN Clobetasol Propionate 15 Gm Cream..g. 1 Chel[place] TP PRN BID PRN Tylenol (Acetaminophen) 325 Mg Tablet 650 Mg PO PRN Q6HRS PRN I have reviewed the current psychotropics carefully including drug interactions. Risk benefit ratio favors no change other than as noted in my dictated progress note. Diagnosis: Problems: (1) Encounter for medical screening examination PAM GLEZ MD Jun 13, 2017 19:58
[2017-06-14 06:02] VITALS: BP 145/79
[2017-06-14 06:41] LABS: BASO % 1 % (0-3); EOS # 0.3 x10^3/uL (0.0-0.7); EOS % 4 % (0-3); HEMATOCRIT 43.1 % (36.0-47.0); HEMOGLOBIN 14.7 g/dL (12.0-15.5); LYMPH # 1.4 x10^3/uL (1.0-4.8); LYMPH % 20 % (24-48); MEAN CORPUSCULAR HEMOGLOBIN 30 pg (25-35); MEAN CORPUSCULAR HGB CONC 34 g/dL (31-37); MEAN CORPUSCULAR VOLUME 89 fL (79-100); MONO # 0.6 x10^3/uL (0.0-1.1); MONO % 9 % (0-9); NEUT # 4.6 x10^3uL (1.8-7.7); NEUT % 67 % (31-73); PLATELET COUNT 197 x10^3/uL (140-400); RED BLOOD COUNT 4.85 x10^6/uL (3.50-5.40); RED CELL DISTRIBUTION WIDTH 14.4 % (11.5-14.5); WHITE BLOOD COUNT 6.8 x10^3/uL (4.0-11.0)
[2017-06-14 06:59] LABS: ALBUMIN 3.8 g/dL (3.4-5.0); ALK PHOS 80 U/L (46-116); ALT (SGPT) 35 U/L (14-59); ANION GAP 9 (6-14); AST (SGOT) 26 U/L (15-37); BLOOD UREA NITROGEN 14 mg/dL (7-20); BUN/CREATININE RATIO 16 (6-20); CALCIUM 8.9 mg/dL (8.5-10.1); CARBON DIOXIDE 29 mmol/L (21-32); CHLORIDE 107 mmol/L (98-107); CREATININE 0.9 mg/dL (0.6-1.0); GFR 63.4; GLUCOSE 115 mg/dL (70-99); SODIUM 145 mmol/L (136-145); TOTAL BILIRUBIN 0.3 mg/dL (0.2-1.0); TOTAL PROTEIN 7.6 g/dL (6.4-8.2)
--- NOTE | 2017-06-14 07:08 | PN ---
DATE: 06/12/2017 PSYCHIATRIC PROGRESS NOTE This is a late entry 06/12/2017, covers elements not covered in my initial note 06/12/2017. Met with the patient evening of 06/12/2017. SUBJECTIVE: The patient was staffed at a treatment team meeting with the entire team morning of 06/12/2017. The patient was frequently gets agitated around 1:00 p.m., believes she had a baby in the blanket, quite confused. REVIEW OF SYSTEMS: No CV, , pulmonary, eye, ENT system symptoms on review. MENTAL STATUS EXAM: Oriented to herself. Insight, judgment, recent and remote memory, attention, concentration, fund of knowledge poor, consistent with her diagnosis mentioned in my initial note. PLAN: Continue psychotropics mentioned in my initial note. Change the 1400 Seroquel 25 mg to noon to help with the 1:00 p.m. agitation. Rest unchanged as before. MAN Mac GLEZ MD DR: NHUNG/anshul JOB#: [id number] / [id number]
[2017-06-14 07:10] LABS: VAL ACID 49 mcg/mL (50-100)
[2017-06-14] MEDS: PANTOPRAZOLE 40 MG TABLET. PO SCH (07:36)
[2017-06-14] MEDS: DICLOFENAC SODIUM 75 MG TABLET.DR PO SCH ×2 (07:36→19:56)
[2017-06-14] MEDS: SERTRALINE 25 MG TABLET. PO SCH (07:37)
[2017-06-14] MEDS: SERTRALINE 100 MG TABLET. PO SCH (07:37)
[2017-06-14] MEDS: LISINOPRIL 10 MG TABLET PO SCH (07:37)
[2017-06-14] MEDS: QUEtiapine 25 MG TABLET. PO SCH ×2 (07:38→13:04)
[2017-06-14] MEDS: DIVALPROEX 125 MG CAP.SPRINK PO SCH ×2 (07:38→13:04)
[2017-06-14] MEDS: MEMANTINE 10 MG TABLET. PO SCH ×2 (07:38→19:56)
[2017-06-14] MEDS: MAGNESIUM HYDROXIDE 2,400 MG/30 ML ORAL.SUSP. PO PRN (09:00)
[2017-06-14 16:28] VITALS: BP 94/63
[2017-06-14] MEDS: SIMVASTATIN 20 MG TABLET PO SCH (19:56)
[2017-06-14] MEDS: DONEPEZIL HCL 10 MG TABLET PO SCH (19:56)
[2017-06-14] MEDS: QUEtiapine 100 MG TABLET. PO SCH (19:56)
--- NOTE | 2017-06-14 21:39 | PDOC ---
Exam Note: Emir Note: Please also refer to the separate dictated note~for this date of service dictated separately.~Patient seen individually. Discussed the patient with Nursing staff reviewed the chart.~Reviewed interim history and current functioning. Reviewed vital signs,~Labs/ Radiology~and current medications noted below. Continue current treatment with the changes noted in the dictated addendum note Assessment: Vital Signs: Vital Signs Date Time Temp Pulse Resp B/P (MAP) Pulse Ox O2 Delivery O2 Flow Rate FiO2 06/14/17 16:28 97.6 73 16 94/63 (73) 95 Room Air I&O Intake and Output 06/14/17 07:00 Intake Total 1440 ml Balance 1440 ml Intake Oral 1440 ml Labs: Laboratory Tests Test 06/14/17 06:09 White Blood Count 6.8 x10^3/uL (4.0-11.0) Red Blood Count 4.85 x10^6/uL (3.50-5.40) Hemoglobin 14.7 g/dL (12.0-15.5) Hematocrit 43.1 % (36.0-47.0) Mean Corpuscular Volume 89 fL (79-100) Mean Corpuscular Hemoglobin 30 pg (25-35) Mean Corpuscular Hemoglobin Concent 34 g/dL (31-37) Red Cell Distribution Width 14.4 % (11.5-14.5) Platelet Count 197 x10^3/uL (140-400) Neutrophils (%) (Auto) 67 % (31-73) Lymphocytes (%) (Auto) 20 % (24-48) L Monocytes (%) (Auto) 9 % (0-9) Eosinophils (%) (Auto) 4 % (0-3) H Basophils (%) (Auto) 1 % (0-3) Neutrophils # (Auto) 4.6 x10^3uL (1.8-7.7) Lymphocytes # (Auto) 1.4 x10^3/uL (1.0-4.8) Monocytes # (Auto) 0.6 x10^3/uL (0.0-1.1) Eosinophils # (Auto) 0.3 x10^3/uL (0.0-0.7) Basophils # (Auto) 0.0 x10^3/uL (0.0-0.2) Sodium Level 145 mmol/L (136-145) Potassium Level 4.0 mmol/L (3.5-5.1) Chloride Level 107 mmol/L (98-107) Carbon Dioxide Level 29 mmol/L (21-32) Anion Gap 9 (6-14) Blood Urea Nitrogen 14 mg/dL (7-20) Creatinine 0.9 mg/dL (0.6-1.0) Estimated GFR (Cockcroft-Gault) 63.4 BUN/Creatinine Ratio 16 (6-20) Glucose Level 115 mg/dL (70-99) H Calcium Level 8.9 mg/dL (8.5-10.1) Total Bilirubin 0.3 mg/dL (0.2-1.0) Aspartate Amino Transferase (AST) 26 U/L (15-37) Alanine Aminotransferase (ALT) 35 U/L (14-59) Alkaline Phosphatase 80 U/L (46-116) Total Protein 7.6 g/dL (6.4-8.2) Albumin 3.8 g/dL (3.4-5.0) Albumin/Globulin Ratio 1.0 (1.0-1.7) Valproic Acid Level 49 mcg/mL (50-100) L Valproic Acid Last Dose Date 06/13/17 Valproic Acid Last Dose Time 2100 Current Medications: Meds: Current Medications Acetaminophen (Tylenol) 650 mg PRN Q6HRS PRN PO PAIN / TEMP; Start 05/20/17 at 20:15 Multi-Ingredient Ointment (Analgesic [place]) 1 chelle PRN QID PRN TP MUSCLE PAIN; Start 05/20/17 at 20:15 Al Hydroxide/Mg Hydroxide (Mylanta Plus Xs) 15 ml PRN AFTMEALHC PRN PO DYSPEPSIA; Start 05/20/17 at 20:15 Magnesium Hydroxide (Milk Of Magnesia) 2,400 mg PRN QHS PRN PO CONSTIPATION Last administered on 06/14/17 09:00; Start 05/20/17 at 20:15 Clonazepam (KlonoPIN) 0.5 mg PRN BID PRN PO ANXIETY / AGITATION Last administered on 06/11/17 12:57; Start 05/20/17 at 21:45 Donepezil HCl (Aricept) 10 mg QHS PO Last administered on 06/14/17 19:56; Start 05/20/17 at 22:00 Memantine (Namenda) 10 mg BID PO Last administered on 06/14/17 19:56; Start 05/20/17 at 22:00 Quetiapine Fumarate (SEROquel) 25 mg DAILY PO Last administered on 05/21/17 08:40; Start 05/21/17 at 09:00; Stop 05/21/17 at 18:33; Status DC Quetiapine Fumarate (SEROquel) 50 mg QHS PO Last administered on 05/21/17 19: 59; Start 05/20/17 at 22:00; Stop 05/22/17 at 11:24; Status DC Sertraline HCl (Zoloft) 100 mg DAILY PO Last administered on 05/23/17 07:24; Start 05/21/17 at 09:00; Stop 05/23/17 at 19:32; Status DC Pneumococcal Polyvalent Vaccine (Do NOT chart on this entry -- for MONITORING) 1 each 1X ONCE MC ; Start 05/22/17 at 09:00; Stop 05/22/17 at 09:01; Status DC Influenza Virus Vaccine Quadrival (Fluarix Quad [id number] Syringe) 0.5 ml ONCE ONCE VAX IM Last administered on 05/22/17 10:56; Start 05/22/17 at 09:00; Stop 05/22/17 at 09:01; Status DC Acetaminophen (Tylenol) 650 mg PRN Q6HRS PRN PO PAIN / TEMP; Start 05/21/17 at 05:30; Stop 05/21/17 at 05:34; Status DC Diclofenac Sodium (Voltaren) 75 mg BID PO Last administered on 06/14/17 19:56 ; Start 05/21/17 at 09:00 Lisinopril (Prinivil) 10 mg DAILY PO Last administered on 06/14/17 07:37; Start 05/21/17 at 09:00 Simvastatin (Zocor) 20 mg HS PO Last administered on 06/14/17 19:56; Start at 21:00 Clobetasol Propionate 1 chelle PRN BID PRN TP ITCHING; Start 05/21/17 at 09:00 Pantoprazole Sodium (Protonix) 40 mg DAILYAC PO Last administered on 06/14/17 07:36; Start 05/21/17 at 07:30 Throat Lozenges (Cepacol Sore Throat Lozenge) 1 sara PRN Q2HR PRN PO COUGH; Start 05/21/17 at 05:45 Cyanocobalamin (Vitamin B-12) 1,000 mcg DAILY IM Last administered on 07:41; Start 05/22/17 at 09:00; Stop 05/25/17 at 08:59; Status DC Cyanocobalamin (Vitamin B-12) 1,000 mcg [id number] IM ; Start 06/18/17 at 09:00 Vitamin D (Vitamin D3) 50,000 unit WEEKLY PO Last administered on 06/11/17 07: 43; Start 05/21/17 at 16:00 Quetiapine Fumarate (SEROquel) 25 mg [id number] PO Last administered on 05/26/17 09:44; Start 05/22/17 at 09:00; Stop 05/26/17 at 11:07; Status DC Quetiapine Fumarate (SEROquel) 75 mg QHS PO Last administered on 06/12/17 19: 39; Start 05/22/17 at 21:00; Stop 06/13/17 at 18:17; Status DC Olanzapine (ZyPREXA ZYDIS) 2.5 mg PRN Q2HR PRN PO PSYCHOSIS/AGITATION Last administered on 06/12/17 13:09; Start 05/22/17 at 19:00 Sertraline HCl (Zoloft) 125 mg DAILY PO Last administered on 06/07/17 08:31; Start 05/24/17 at 09:00; Stop 06/07/17 at 08:56; Status DC Quetiapine Fumarate (SEROquel) 25 mg DAILY@1400 PO Last administered on 13:08; Start 05/26/17 at 14:00; Stop 06/12/17 at 18:04; Status DC Quetiapine Fumarate (SEROquel) 37.5 mg DAILY PO Last administered on 06/14/17 07:38; Start 05/27/17 at 09:00 Divalproex Sodium (Depakote Sprinkles) 125 mg [id number] PO Last administered on 07:58; Start 06/03/17 at 09:00; Stop 06/05/17 at 11:51; Status DC Divalproex Sodium (Depakote Sprinkles) 250 mg [id number] PO Last administered on 13:08; Start 06/05/17 at 14:00; Stop 06/08/17 at 18:03; Status DC Sertraline HCl (Zoloft) 100 mg DAILY PO Last administered on 06/14/17 07:37; Start 06/07/17 at 09:00 Sertraline HCl (Zoloft) 25 mg DAILY PO Last administered on 06/14/17 07:37; Start 06/07/17 at 09:00 Divalproex Sodium (Depakote Sprinkles) 375 mg [id number] PO Last administered on 12:57; Start 06/09/17 at 09:00; Stop 06/11/17 at 18:42; Status DC Divalproex Sodium (Depakote Sprinkles) 500 mg BID92 PO Last administered on 13:04; Start 06/12/17 at 09:00 Quetiapine Fumarate (SEROquel) 25 mg DAILY@1200 PO Last administered on 13:04; Start 06/13/17 at 12:00 Quetiapine Fumarate (SEROquel) 100 mg QHS PO Last administered on 06/14/17 19: 56; Start 06/13/17 at 21:00 Active Scripts Active Reported Seroquel (Quetiapine Fumarate) 25 Mg Tablet 37.5 Tab PO DAILY [place] (Menthol) 113 Gm Gel..gram. 1 [place] TP PRN QID PRN Milk Of Magnesia (Magnesium Hydroxide) 2,400 Mg/10 Ml Oral.susp 2,400 Mg PO PRN QHS PRN Maalox Maximum Strength Susp (Mag Hydrox/Al Hydrox/Simeth) 355 Ml Oral.susp 15 Ml PO PRN AFTMEALHC PRN Depakote Sprinkle (Divalproex Sodium) 125 Mg Cap.sprink 500 Mg PO BID92 Cyanocobalamin Injection (Cyanocobalamin (Vitamin B-12)) 1,000 Mcg/1 Ml Vial 1, 000 Mcg IJ [id number] D3-50 (Cholecalciferol (Vitamin D3)) 50,000 Unit Capsule 50,000 Unit PO WEEKLY Cepacol Sore Throat Lozenge (Benzocaine/Menthol) 1 Each Lozenge 1 Each MM PRN Q2HR PRN Throat Drops (Pectin) 6 Mg Lozenge 6 Mg MM PRN Q4HRS PRN Simvastatin 20 Mg Tablet 20 Mg PO HS Zoloft (Sertraline Hcl) 100 Mg Tablet 100 Mg PO DAILY Seroquel (Quetiapine Fumarate) 50 Mg Tablet 50 Mg PO QHS Seroquel (Quetiapine Fumarate) 25 Mg Tablet 25 Mg PO DAILY Omeprazole 20 Mg Capsule.dr 20 Mg PO DAILY Namenda (Memantine Hcl) 10 Mg Tablet 10 Mg PO BID Lisinopril 10 Mg Tablet 10 Mg PO DAILY Donepezil Hcl 10 Mg Tablet 10 Mg PO QHS Diclofenac Sodium 75 Mg Tablet.dr 75 Mg PO BID Clonazepam 0.5 Mg Tablet 0.5 Mg PO PRN BID PRN Clobetasol Propionate 15 Gm Cream..g. 1 [place] TP PRN BID PRN Tylenol (Acetaminophen) 325 Mg Tablet 650 Mg PO PRN Q6HRS PRN I have reviewed the current psychotropics carefully including drug interactions. Risk benefit ratio favors no change other than as noted in my dictated progress note. Diagnosis: Problems: (1) Encounter for medical screening examination PAM GLEZ MD Jun 14, 2017 21:39
[2017-06-15 06:13] VITALS: BP 137/71
[2017-06-15] MEDS: SERTRALINE 25 MG TABLET. PO SCH (07:39)
[2017-06-15] MEDS: PANTOPRAZOLE 40 MG TABLET. PO SCH (07:39)
[2017-06-15] MEDS: SERTRALINE 100 MG TABLET. PO SCH (07:39)
[2017-06-15] MEDS: DICLOFENAC SODIUM 75 MG TABLET.DR PO SCH ×2 (07:40→19:53)
[2017-06-15] MEDS: MEMANTINE 10 MG TABLET. PO SCH ×2 (07:40→19:53)
[2017-06-15] MEDS: DIVALPROEX 125 MG CAP.SPRINK PO SCH ×2 (07:40→14:00)
[2017-06-15] MEDS: LISINOPRIL 10 MG TABLET PO SCH (07:40)
[2017-06-15] MEDS: QUEtiapine 25 MG TABLET. PO SCH ×2 (07:40→12:00)
[2017-06-15] MEDS: clonazePAM 0.5 MG TABLET PO PRN (15:30)
[2017-06-15 16:21] VITALS: BP 96/58
[2017-06-15] MEDS: SIMVASTATIN 20 MG TABLET PO SCH (19:53)
[2017-06-15] MEDS: DONEPEZIL HCL 10 MG TABLET PO SCH (19:53)
[2017-06-15] MEDS: QUEtiapine 100 MG TABLET. PO SCH (19:53)
--- NOTE | 2017-06-15 20:10 | PDOC ---
Exam Note: Emir Note: Please also refer to the separate dictated note~for this date of service dictated separately.~Patient seen individually. Discussed the patient with Nursing staff reviewed the chart.~Reviewed interim history and current functioning. Reviewed vital signs,~Labs/ Radiology~and current medications noted below. Continue current treatment with the changes noted in the dictated addendum note Assessment: Vital Signs: Vital Signs Date Time Temp Pulse Resp B/P (MAP) Pulse Ox O2 Delivery O2 Flow Rate FiO2 06/15/17 16:21 97.8 74 20 96/58 (71) 96 06/14/17 16:28 Room Air I&O Intake and Output 06/15/17 07:00 Intake Total 1260 ml Balance 1260 ml Intake Oral 1260 ml # Bowel Movements 1 Current Medications: Meds: Current Medications Acetaminophen (Tylenol) 650 mg PRN Q6HRS PRN PO PAIN / TEMP; Start 05/20/17 at 20:15 Multi-Ingredient Ointment (Analgesic [place]) 1 chelle PRN QID PRN TP MUSCLE PAIN; Start 05/20/17 at 20:15 Al Hydroxide/Mg Hydroxide (Mylanta Plus Xs) 15 ml PRN AFTMEALHC PRN PO DYSPEPSIA; Start 05/20/17 at 20:15 Magnesium Hydroxide (Milk Of Magnesia) 2,400 mg PRN QHS PRN PO CONSTIPATION Last administered on 06/14/17 09:00; Start 05/20/17 at 20:15 Clonazepam (KlonoPIN) 0.5 mg PRN BID PRN PO ANXIETY / AGITATION Last administered on 06/15/17 15:30; Start 05/20/17 at 21:45 Donepezil HCl (Aricept) 10 mg QHS PO Last administered on 06/15/17 19:53; Start 05/20/17 at 22:00 Memantine (Namenda) 10 mg BID PO Last administered on 06/15/17 19:53; Start 05/20/17 at 22:00 Quetiapine Fumarate (SEROquel) 25 mg DAILY PO Last administered on 05/21/17 08:40; Start 05/21/17 at 09:00; Stop 05/21/17 at 18:33; Status DC Quetiapine Fumarate (SEROquel) 50 mg QHS PO Last administered on 05/21/17 19: 59; Start 05/20/17 at 22:00; Stop 05/22/17 at 11:24; Status DC Sertraline HCl (Zoloft) 100 mg DAILY PO Last administered on 05/23/17 07:24; Start 05/21/17 at 09:00; Stop 05/23/17 at 19:32; Status DC Pneumococcal Polyvalent Vaccine (Do NOT chart on this entry -- for MONITORING) 1 each 1X ONCE MC ; Start 05/22/17 at 09:00; Stop 05/22/17 at 09:01; Status DC Influenza Virus Vaccine Quadrival (Fluarix Quad [id number] Syringe) 0.5 ml ONCE ONCE VAX IM Last administered on 05/22/17 10:56; Start 05/22/17 at 09:00; Stop 05/22/17 at 09:01; Status DC Acetaminophen (Tylenol) 650 mg PRN Q6HRS PRN PO PAIN / TEMP; Start 05/21/17 at 05:30; Stop 05/21/17 at 05:34; Status DC Diclofenac Sodium (Voltaren) 75 mg BID PO Last administered on 06/15/17 19:53 ; Start 05/21/17 at 09:00 Lisinopril (Prinivil) 10 mg DAILY PO Last administered on 06/15/17 07:40; Start 05/21/17 at 09:00 Simvastatin (Zocor) 20 mg HS PO Last administered on 06/15/17 19:53; Start 05/21/17 at 21:00 Clobetasol Propionate 1 chelle PRN BID PRN TP ITCHING; Start 05/21/17 at 09:00 Pantoprazole Sodium (Protonix) 40 mg DAILYAC PO Last administered on 07:39; Start 05/21/17 at 07:30 Throat Lozenges (Cepacol Sore Throat Lozenge) 1 sara PRN Q2HR PRN PO COUGH; Start 05/21/17 at 05:45 Cyanocobalamin (Vitamin B-12) 1,000 mcg DAILY IM Last administered on 07:41; Start 05/22/17 at 09:00; Stop 05/25/17 at 08:59; Status DC Cyanocobalamin (Vitamin B-12) 1,000 mcg [id number] IM ; Start 06/18/17 at 09:00 Vitamin D (Vitamin D3) 50,000 unit WEEKLY PO Last administered on 06/11/17 07: 43; Start 05/21/17 at 16:00 Quetiapine Fumarate (SEROquel) 25 mg [id number] PO Last administered on 05/26/17 09:44; Start 05/22/17 at 09:00; Stop 05/26/17 at 11:07; Status DC Quetiapine Fumarate (SEROquel) 75 mg QHS PO Last administered on 06/12/17 19: 39; Start 05/22/17 at 21:00; Stop 06/13/17 at 18:17; Status DC Olanzapine (ZyPREXA ZYDIS) 2.5 mg PRN Q2HR PRN PO PSYCHOSIS/AGITATION Last administered on 06/12/17 13:09; Start 05/22/17 at 19:00 Sertraline HCl (Zoloft) 125 mg DAILY PO Last administered on 06/07/17 08:31; Start 05/24/17 at 09:00; Stop 06/07/17 at 08:56; Status DC Quetiapine Fumarate (SEROquel) 25 mg DAILY@1400 PO Last administered on 13:08; Start 05/26/17 at 14:00; Stop 06/12/17 at 18:04; Status DC Quetiapine Fumarate (SEROquel) 37.5 mg DAILY PO Last administered on 07:40; Start 05/27/17 at 09:00 Divalproex Sodium (Depakote Sprinkles) 125 mg [id number] PO Last administered on 07:58; Start 06/03/17 at 09:00; Stop 06/05/17 at 11:51; Status DC Divalproex Sodium (Depakote Sprinkles) 250 mg BID92 PO Last administered on 13:08; Start 06/05/17 at 14:00; Stop 06/08/17 at 18:03; Status DC Sertraline HCl (Zoloft) 100 mg DAILY PO Last administered on 06/15/17 07:39; Start 06/07/17 at 09:00 Sertraline HCl (Zoloft) 25 mg DAILY PO Last administered on 06/15/17 07:39; Start 06/07/17 at 09:00 Divalproex Sodium (Depakote Sprinkles) 375 mg BID92 PO Last administered on 12:57; Start 06/09/17 at 09:00; Stop 06/11/17 at 18:42; Status DC Divalproex Sodium (Depakote Sprinkles) 500 mg BID92 PO Last administered on 14:00; Start 06/12/17 at 09:00 Quetiapine Fumarate (SEROquel) 25 mg DAILY@1200 PO Last administered on 12:00; Start 06/13/17 at 12:00 Quetiapine Fumarate (SEROquel) 100 mg QHS PO Last administered on 06/15/17 19 :53; Start 06/13/17 at 21:00 Active Scripts Active Reported Seroquel (Quetiapine Fumarate) 25 Mg Tablet 37.5 Tab PO DAILY [place] (Menthol) 113 Gm Gel..gram. 1 Chelle TP PRN QID PRN Milk Of Magnesia (Magnesium Hydroxide) 2,400 Mg/10 Ml Oral.susp 2,400 Mg PO PRN QHS PRN Maalox Maximum Strength Susp (Mag Hydrox/Al Hydrox/Simeth) 355 Ml Oral.susp 15 Ml PO PRN AFTMEALHC PRN Depakote Sprinkle (Divalproex Sodium) 125 Mg Cap.sprink 500 Mg PO BID92 Cyanocobalamin Injection (Cyanocobalamin (Vitamin B-12)) 1,000 Mcg/1 Ml Vial 1, 000 Mcg IJ [id number] D3-50 (Cholecalciferol (Vitamin D3)) 50,000 Unit Capsule 50,000 Unit PO WEEKLY Cepacol Sore Throat Lozenge (Benzocaine/Menthol) 1 Each Lozenge 1 Each MM PRN Q2HR PRN Throat Drops (Pectin) 6 Mg Lozenge 6 Mg MM PRN Q4HRS PRN Simvastatin 20 Mg Tablet 20 Mg PO HS Zoloft (Sertraline Hcl) 100 Mg Tablet 100 Mg PO DAILY Seroquel (Quetiapine Fumarate) 50 Mg Tablet 50 Mg PO QHS Seroquel (Quetiapine Fumarate) 25 Mg Tablet 25 Mg PO DAILY Omeprazole 20 Mg Capsule. 20 Mg PO DAILY Namenda (Memantine Hcl) 10 Mg Tablet 10 Mg PO BID Lisinopril 10 Mg Tablet 10 Mg PO DAILY Donepezil Hcl 10 Mg Tablet 10 Mg PO QHS Diclofenac Sodium 75 Mg Tablet.dr 75 Mg PO BID Clonazepam 0.5 Mg Tablet 0.5 Mg PO PRN BID PRN Clobetasol Propionate 15 Gm Cream..g. 1 [place] TP PRN BID PRN Tylenol (Acetaminophen) 325 Mg Tablet 650 Mg PO PRN Q6HRS PRN I have reviewed the current psychotropics carefully including drug interactions. Risk benefit ratio favors no change other than as noted in my dictated progress note. Diagnosis: Problems: (1) Encounter for medical screening examination PAM GLEZ MD Jun 15, 2017 20:10
--- NOTE | 2017-06-15 20:21 | PN ---
DATE: 06/13/2017 This is a late entry 06/13/2017 covers elements not covered in my initial note 06/13/2017, met with the patient evening of 05/14/2017. The patient remains confused, wanders into other patient's rooms, picks up things, not obsessed about seeing babies in blankets, slept 6-3/4 hours previous evening. REVIEW OF SYSTEMS: No CV, , pulmonary, eye, ENT system symptoms on review. Reliability poor. MENTAL STATUS EXAM: Oriented to herself. Insight, judgment, recent and remote memory, attention, concentration, fund of knowledge poor, consistent with her diagnosis. Otherwise, confused. LABORATORY DATA: Reviewed. IMPRESSION: Unchanged from initial note. PLAN: Increase Seroquel to 100 mg p.o. at bedtime. Rest unchanged. Adjust further as clinically indicated. MAN Mac GLEZ MD DR: NHUNG/anshul JOB#: [id number] / [id number]
--- NOTE | 2017-06-15 20:28 | PN ---
DATE: 06/14/2017 This is a late entry for 06/14/2017, covers the elements not covered in my initial note of 06/14/2017. SUBJECTIVE: I met with the patient in the evening of 06/14/2017. The patient has been getting into other patient's rooms, gets them agitated, oblivious of what she is doing, picks up stuff from others rooms, ____ and blanket, psychotic symptoms are better. REVIEW OF SYSTEMS: No CV, , pulmonary, eye, ENT system symptoms on review. Reliability poor. MENTAL STATUS EXAM: Oriented to herself. Insight, judgment, recent and remote memory, attention, concentration, fund of knowledge poor, consistent with her diagnosis mentioned in my initial note. PLAN: Continue psychotropics mentioned in my initial note. Adjust as clinically indicated. MAN Mac GLEZ MD DR: NHUNG/anshul JOB#: [id number] / [id number]
[2017-06-16] MEDS ORDERED: OLAN5TAB5 PO (00:02)
[2017-06-16 05:56] VITALS: BP 127/75
[2017-06-16] MEDS: SERTRALINE 100 MG TABLET. PO SCH (08:19)
[2017-06-16 08:20] VITALS: BP 127/75
[2017-06-16] MEDS: PANTOPRAZOLE 40 MG TABLET. PO SCH (08:20)
[2017-06-16] MEDS: DIVALPROEX 125 MG CAP.SPRINK PO SCH (08:20)
[2017-06-16] MEDS: SERTRALINE 25 MG TABLET. PO SCH (08:20)
[2017-06-16] MEDS: LISINOPRIL 10 MG TABLET PO SCH (08:20)
[2017-06-16] MEDS: QUEtiapine 25 MG TABLET. PO SCH (08:20)
[2017-06-16] MEDS: MEMANTINE 10 MG TABLET. PO SCH (08:21)
[2017-06-16] MEDS: DICLOFENAC SODIUM 75 MG TABLET.DR PO SCH (08:22)
--- NOTE | 2017-06-16 18:35 | PDOC ---
Exam Note: Emir Note: Please also refer to the separate dictated note~for this date of service dictated separately.~Patient seen individually. Discussed the patient with Nursing staff reviewed the chart.~Reviewed interim history and current functioning. Reviewed vital signs,~Labs/ Radiology~and current medications noted below. Continue current treatment with the changes noted in the dictated addendum note Assessment: Vital Signs: Vital Signs Date Time Temp Pulse Resp B/P (MAP) Pulse Ox O2 Delivery O2 Flow Rate FiO2 06/16/17 08:20 69 127/75 06/16/17 05:56 97.4 16 96 06/14/17 16:28 Room Air I&O Intake and Output 06/16/17 07:00 Intake Total 1500 ml Balance 1500 ml Intake Oral 1500 ml # Voids 1 Current Medications: Meds: Current Medications Acetaminophen (Tylenol) 650 mg PRN Q6HRS PRN PO PAIN / TEMP; Start 05/20/17 at 20:15; Stop 06/16/17 at 12:55; Status DC Multi-Ingredient Ointment (Analgesic [place]) 1 chelle PRN QID PRN TP MUSCLE PAIN; Start 05/20/17 at 20:15; Stop 06/16/17 at 12:55; Status DC Al Hydroxide/Mg Hydroxide (Mylanta Plus Xs) 15 ml PRN AFTMEALHC PRN PO DYSPEPSIA; Start 05/20/17 at 20:15; Stop 06/16/17 at 12:55; Status DC Magnesium Hydroxide (Milk Of Magnesia) 2,400 mg PRN QHS PRN PO CONSTIPATION Last administered on 06/14/17 09:00; Start 05/20/17 at 20:15; Stop 06/16/17 at 12:55; Status DC Clonazepam (KlonoPIN) 0.5 mg PRN BID PRN PO ANXIETY / AGITATION Last administered on 06/15/17 15:30; Start 05/20/17 at 21:45; Stop 06/16/17 at 12 :55; Status DC Donepezil HCl (Aricept) 10 mg QHS PO Last administered on 06/15/17 19:53; Start 05/20/17 at 22:00; Stop 06/16/17 at 12:55; Status DC Memantine (Namenda) 10 mg BID PO Last administered on 06/16/17 08:21; Start 05/20/17 at 22:00; Stop 06/16/17 at 12:55; Status DC Quetiapine Fumarate (SEROquel) 25 mg DAILY PO Last administered on 05/21/17 08:40; Start 05/21/17 at 09:00; Stop 05/21/17 at 18:33; Status DC Quetiapine Fumarate (SEROquel) 50 mg QHS PO Last administered on 05/21/17 19: 59; Start 05/20/17 at 22:00; Stop 05/22/17 at 11:24; Status DC Sertraline HCl (Zoloft) 100 mg DAILY PO Last administered on 05/23/17 07:24; Start 05/21/17 at 09:00; Stop 05/23/17 at 19:32; Status DC Pneumococcal Polyvalent Vaccine (Do NOT chart on this entry -- for MONITORING) 1 each 1X ONCE MC ; Start 05/22/17 at 09:00; Stop 05/22/17 at 09:01; Status DC Influenza Virus Vaccine Quadrival (Fluarix Quad [id number] Syringe) 0.5 ml ONCE ONCE VAX IM Last administered on 05/22/17 10:56; Start 05/22/17 at 09:00; Stop 05/22/17 at 09:01; Status DC Acetaminophen (Tylenol) 650 mg PRN Q6HRS PRN PO PAIN / TEMP; Start 05/21/17 at 05:30; Stop 05/21/17 at 05:34; Status DC Diclofenac Sodium (Voltaren) 75 mg BID PO Last administered on 06/16/17 08:22 ; Start 05/21/17 at 09:00; Stop 06/16/17 at 12:55; Status DC Lisinopril (Prinivil) 10 mg DAILY PO Last administered on 06/16/17 08:20; Start 05/21/17 at 09:00; Stop 06/16/17 at 12:55; Status DC Simvastatin (Zocor) 20 mg HS PO Last administered on 06/15/17 19:53; Start 05/21/17 at 21:00; Stop 06/16/17 at 12:55; Status DC Clobetasol Propionate 1 chelle PRN BID PRN TP ITCHING; Start 05/21/17 at 09:00; Stop 06/16/17 at 12:55; Status DC Pantoprazole Sodium (Protonix) 40 mg DAILYAC PO Last administered on 08:20; Start 05/21/17 at 07:30; Stop 06/16/17 at 12:55; Status DC Throat Lozenges (Cepacol Sore Throat Lozenge) 1 sara PRN Q2HR PRN PO COUGH; Start 05/21/17 at 05:45; Stop 06/16/17 at 12:55; Status DC Cyanocobalamin (Vitamin B-12) 1,000 mcg DAILY IM Last administered on 07:41; Start 05/22/17 at 09:00; Stop 05/25/17 at 08:59; Status DC Cyanocobalamin (Vitamin B-12) 1,000 mcg [id number] IM ; Start 06/18/17 at 09:00; Stop 06/18/17 at 09:00; Status DC Vitamin D (Vitamin D3) 50,000 unit WEEKLY PO Last administered on 06/11/17 07: 43; Start 05/21/17 at 16:00; Stop 06/16/17 at 12:55; Status DC Quetiapine Fumarate (SEROquel) 25 mg [id number] PO Last administered on 05/26/17 09:44; Start 05/22/17 at 09:00; Stop 05/26/17 at 11:07; Status DC Quetiapine Fumarate (SEROquel) 75 mg QHS PO Last administered on 06/12/17 19: 39; Start 05/22/17 at 21:00; Stop 06/13/17 at 18:17; Status DC Olanzapine (ZyPREXA ZYDIS) 2.5 mg PRN Q2HR PRN PO PSYCHOSIS/AGITATION Last administered on 06/12/17 13:09; Start 05/22/17 at 19:00; Stop 06/16/17 at 12: 55; Status DC Sertraline HCl (Zoloft) 125 mg DAILY PO Last administered on 06/07/17 08:31; Start 05/24/17 at 09:00; Stop 06/07/17 at 08:56; Status DC Quetiapine Fumarate (SEROquel) 25 mg DAILY@1400 PO Last administered on 13:08; Start 05/26/17 at 14:00; Stop 06/12/17 at 18:04; Status DC Quetiapine Fumarate (SEROquel) 37.5 mg DAILY PO Last administered on 08:20; Start 05/27/17 at 09:00; Stop 06/16/17 at 12:55; Status DC Divalproex Sodium (Depakote Sprinkles) 125 mg [id number] PO Last administered on 07:58; Start 06/03/17 at 09:00; Stop 06/05/17 at 11:51; Status DC Divalproex Sodium (Depakote Sprinkles) 250 mg [id number] PO Last administered on 13:08; Start 06/05/17 at 14:00; Stop 06/08/17 at 18:03; Status DC Sertraline HCl (Zoloft) 100 mg DAILY PO Last administered on 06/16/17 08:19; Start 06/07/17 at 09:00; Stop 06/16/17 at 12:55; Status DC Sertraline HCl (Zoloft) 25 mg DAILY PO Last administered on 06/16/17 08:20; Start 06/07/17 at 09:00; Stop 06/16/17 at 12:55; Status DC Divalproex Sodium (Depakote Sprinkles) 375 mg BID92 PO Last administered on 12:57; Start 06/09/17 at 09:00; Stop 06/11/17 at 18:42; Status DC Divalproex Sodium (Depakote Sprinkles) 500 mg BID92 PO Last administered on 08:20; Start 06/12/17 at 09:00; Stop 06/16/17 at 12:55; Status DC Quetiapine Fumarate (SEROquel) 25 mg DAILY@1200 PO Last administered on 12:00; Start 06/13/17 at 12:00; Stop 06/16/17 at 12:55; Status DC Quetiapine Fumarate (SEROquel) 100 mg QHS PO Last administered on 06/15/17 19 :53; Start 06/13/17 at 21:00; Stop 06/16/17 at 12:55; Status DC Active Scripts Active Reported Zyprexa Zydis (Olanzapine) 5 Mg Tab.rapdis 2.5 Mg PO PRN Q2HR PRN MDD 7.5mg Seroquel (Quetiapine Fumarate) 25 Mg Tablet 37.5 Tab PO DAILY Beng[place] (Menthol) 113 Gm Gel..gram. 1 Chelle TP PRN QID PRN Milk Of Magnesia (Magnesium Hydroxide) 2,400 Mg/10 Ml Oral.susp 2,400 Mg PO PRN QHS PRN Maalox Maximum Strength Susp (Mag Hydrox/Al Hydrox/Simeth) 355 Ml Oral.susp 15 Ml PO PRN AFTMEALHC PRN Depakote Sprinkle (Divalproex Sodium) 125 Mg Cap.sprink 500 Mg PO [id number] Cyanocobalamin Injection (Cyanocobalamin (Vitamin B-12)) 1,000 Mcg/1 Ml Vial 1, 000 Mcg IM [id number] D3-50 (Cholecalciferol (Vitamin D3)) 50,000 Unit Capsule 50,000 Unit PO WEEKLY Cepacol Sore Throat Lozenge (Benzocaine/Menthol) 1 Each Lozenge 1 Sara MM PRN Q2HR PRN Simvastatin 20 Mg Tablet 20 Mg PO HS Zoloft (Sertraline Hcl) 100 Mg Tablet 125 Mg PO DAILY Seroquel (Quetiapine Fumarate) 50 Mg Tablet 100 Mg PO QHS Seroquel (Quetiapine Fumarate) 25 Mg Tablet 25 Mg PO DAILYWLUN Omeprazole 20 Mg Capsule.dr 20 Mg PO DAILY Namenda (Memantine Hcl) 10 Mg Tablet 10 Mg PO BID Lisinopril 10 Mg Tablet 10 Mg PO DAILY Donepezil Hcl 10 Mg Tablet 10 Mg PO QHS Diclofenac Sodium 75 Mg Tablet.dr 75 Mg PO BID Clonazepam 0.5 Mg Tablet 0.5 Mg PO PRN BID PRN Clobetasol Propionate 15 Gm Cream..g. 1 Chelle TP PRN BID PRN Tylenol (Acetaminophen) 325 Mg Tablet 650 Mg PO PRN Q6HRS PRN MDD 4000mg from all sources I have reviewed the current psychotropics carefully including drug interactions. Risk benefit ratio favors no change other than as noted in my dictated progress note. Diagnosis: Problems: (1) Anxiety disorder (2) Dementia in Alzheimer's disease with depression (3) Dementia in Alzheimer's disease with delusions (4) Dementia, vascular, with delusions (5) Dementia, vascular, with depression (6) Impulse control disorder PAM GLEZ MD Jun 16, 2017 18:35
--- NOTE | 2017-06-16 23:08 | PN ---
DATE: 06/15/2017 PSYCHIATRIC PROGRESS NOTE This is a late entry for 06/15/2017 covers elements not covered in my initial note of 06/15/2017. SUBJECTIVE: I met with the patient evening of 06/15/2017. The patient remains confused, oblivious of her surroundings, wanders into other patient's rooms, but not aggressive. REVIEW OF SYSTEMS: No CV, , pulmonary, eye, ENT system symptoms on review. Reliability poor. MENTAL STATUS EXAM: Oriented to herself. Insight, judgment, recent and remote memory, attention, concentration, fund of knowledge poor, consistent with her diagnosis. She followed me around the unit. LABORATORY DATA: Reviewed. IMPRESSION: Unchanged from initial note. PLAN: Continue psychotropics mentioned in my initial note. Transition to group home 06/16/2017. MAN Mac GLEZ MD DR: NHUNG/anshul JOB#: [id number] / [id number]
--- NOTE | 2017-06-17 22:06 | DS ---
DATE OF DISCHARGE: 06/16/2017 DISCHARGE SUMMARY/PSYCHIATRIC PROGRESS NOTE This late entry of 06/16/2017 covers elements not covered in my initial note of 06/16/2017. REASON FOR ADMISSION: Please refer to the admission history for details. Briefly, the patient is a 61-year-old female referred to us from [facility] by her primary care physician on account of worsening confusion, being delusional, saying people were stealing from her, people were giving her family members alcohol. She is exit seeking, agitated, aggressive at the custodial, had failed outpatient psychiatric interventions resulting in this referral to us. SIGNIFICANT FINDINGS AND CLINICAL COURSE: Following admission, the patient was seen daily individually by myself, followed medically per Dr. Kirby/Dr Malloy. The patient was quite confused, wandering into other patient's rooms, oblivious of what she was doing, carrying around her blanket at times on the unit. She is quite psychotic as well. Adjustments were made in her psychotropics. She seemed to respond to a combination of Namenda 10 mg b.i.d.; Seroquel 37.5 mg daily, 25 mg at noon, and 100 mg at bedtime; Zoloft 125 mg a day; Aricept 10 mg a day; Klonopin 0.5 mg b.i.d. p.r.n.; Zyprexa 2.5 mg q.2 hours p.r.n. psychosis and agitation, max 7.5 mg in 24 hours; Depakote Sprinkle 500 mg b.i.d., valproic acid level of 49, even though slightly subtherapeutic, was clinically adequate for her. Gradually mood appeared to improve. She is less irritable, certainly remains confused. No CV, , pulmonary, eye, ENT system symptoms on review prior to discharge. MENTAL STATUS EXAMINATION: Oriented to herself. Insight, judgment, recent and remote memory, attention, concentration, Fund of knowledge is poor, consistent with her diagnosis. LABORATORY DATA: Reviewed. IMPRESSION: Unchanged from initial note. CONDITION AT DISCHARGE: Improved. FINAL DIAGNOSES: Major neurocognitive disorder, Alzheimer, vascular with depression, delusion, behavioral disturbance; anxiety disorder, unspecified; impulse control disorder, unspecified. Rest unchanged from initial note. PLAN: Continue current psychotropics. Outpatient psychiatric and medical followup at the custodial. MAN Mac GLEZ MD DR: Rachel JOB#: [id number] / [id number]
[2017-06-18] MEDS ORDERED: CYANOCOBALAMIN (VITAMIN B-12) 1,000 MCG/ML VIAL IM SCH (09:00)
== END 2017-06-16 10:30 | disposition home or self-care (01) | DRG 884 ==
LOC: ER 16:53 → EEVIPCON 16:53 → GEROPSY 19:59
PROVIDERS: ADMIT Psychiatry & Neurology Psychiatry; ATTEND Psychiatry & Neurology Psychiatry
DX: F01.51 Vascular dementia, unspecified severity, with behavioral disturbance (principal); G30.0 Alzheimer's disease with early onset; F02.81 Dementia in other diseases classified elsewhere, unspecified severity, with behavioral disturbance; E53.8 Deficiency of other specified B group vitamins; E55.9 Vitamin D deficiency, unspecified; E78.5 Hyperlipidemia, unspecified; F22 Delusional disorders; F32.9 Major depressive disorder, single episode, unspecified; F41.9 Anxiety disorder, unspecified; F63.9 Impulse disorder, unspecified; I10 Essential (primary) hypertension; J45.909 Unspecified asthma, uncomplicated; R41.841 Cognitive communication deficit; M54.2 Cervicalgia; Z79.899 Other long term (current) drug therapy
CPT/HCPCS: 36415; 70450; 80053; 80061; 80164; 80307; 81001; 82306; 82607; 83036; 83540; 83550; 83735; 84436; 84443; 84480; 85025; 86592; 86593; 90686; 93005; 95816; G0480; J3420; 99285-25; G0479